=== PATIENT | female | born 1955 | race Caucasian/White ===

== ENCOUNTER → 2019-06-18 | Outpatient (CLI) | payer OTHER | END | disposition home or self-care (01) | LOC: XY 10:40 | PROVIDERS: ATTEND Internal Medicine Nephrology | DX: I77.89 Other specified disorders of arteries and arterioles (principal); R22.41 Localized swelling, mass and lump, right lower limb | CPT/HCPCS: 93926 ==

== ENCOUNTER → 2019-10-23 | Outpatient (CLI) | payer OTHER ==
[2019-10-23 07:53] LABS: Basophils # (auto) 0.1 10 ^3/uL (0-0.2); Basophils % (auto) 1.2 % (0.0-2.0); Eosinophils # (auto) 0.2 10 ^3/uL (0-0.8); Eosinophils % (auto) 3.1 % (0.0-7.0); Hematocrit 41.9 % (36.0-46.0); Hemoglobin 14.2 g/dL (12.2-16.2); Lymphocytes # (auto) 2.2 10 ^3/uL (0.4-5.4); Lymphocytes % (auto) 37.9 % (10.0-50.0); Mean Corpuscular Hemoglobin 29.8 pg (28.0-32.0); Mean Corpuscular Volume 87.7 fL (80.0-100.0); Monocytes # (auto) 0.4 10 ^3/uL (0-1.3); Monocytes % (auto) 6.3 % (0.0-12.0); Neutrophils % (auto) 51.5 % (37.0-80.0); Platelet Count (auto) 291 10^3/uL (140-450); Red Blood Cells 4.77 10^6/uL (4.0-5.20); Red Cell Distribution Width 13.8 % (11.8-14.3); White Blood Cell 5.8 10^3/uL (4.4-10.8)
[2019-10-23 08:17] LABS: Alanine Aminotransferase 42 U/L (13-56); Albumin 3.8 g/dL (3.4-5.0); Anion Gap 8 (5-15); Blood Urea Nitrogen 16 mg/dL (7-18); Carbon Dioxide 29 mmol/L (21-32); Chloride 100 mmol/L (98-107); Glucose 143 mg/dL (74-106); Potassium 4.2 mmol/L (3.5-5.1); Sodium 137 mmol/L (136-145)
[2019-10-23 08:29] LABS: Alkaline Phosphatase 100 U/L (45-117); Aspartate Aminotransferase 21 U/L (15-37); BUN/Creatinine Ratio 22.5; Bilirubin, Total 0.4 mg/dL (0.2-1.0); Cholesterol 301 mg/dL (< 200); GFR African American 106 mL/min; GFR Non-African American 88 mL/min; HDL Cholesterol 30 mg/dL (40-59); Total Protein 7.8 g/dL (6.4-8.2); Triglycerides 1242 mg/dL (< 150)
== END | disposition home or self-care (01) ==
LOC: LAB 07:27
PROVIDERS: ATTEND Internal Medicine Nephrology
DX: F32.9 Major depressive disorder, single episode, unspecified (principal); Z90.49 Acquired absence of other specified parts of digestive tract
CPT/HCPCS: 36415; 80053; 80061; 84439; 84443; 85025

== ENCOUNTER → 2020-01-13 | Outpatient (CLI) | payer OTHER | END | disposition home or self-care (01) | LOC: XY 16:34 | PROVIDERS: ATTEND Internal Medicine Nephrology | DX: I70.201 Unspecified atherosclerosis of native arteries of extremities, right leg (principal) | CPT/HCPCS: 93925 ==

== ENCOUNTER → 2020-09-14 | Outpatient (CLI) | payer OTHER ==
[2020-09-14 08:18] LABS: Urine Bacteria MANY /hpf (None Seen); Urine Blood Negative /uL (Negative); Urine Specific Gravity 1.013 (1.001-1.035); Urine WBC 7 /hpf (0 - 5)
[2020-09-14 08:56] LABS: Protein, Urine 7.6 mg/dL (0.0-11.9)
== END | disposition home or self-care (01) ==
LOC: LAB 07:22
PROVIDERS: ATTEND Internal Medicine Nephrology
DX: R73.9 Hyperglycemia, unspecified (principal)
CPT/HCPCS: 36415; 81001; 82570; 83036; 83970; 84156; 85652; 86038

== ENCOUNTER → 2021-04-24 | Outpatient (CLI) | payer OTHER ==
[2021-04-24 08:24] LABS: Basophils # (auto) 0.1 10 ^3/uL (0-0.2); Basophils % (auto) 0.8 % (0.0-2.0); Eosinophils # (auto) 0.3 10 ^3/uL (0-0.8); Eosinophils % (auto) 3.4 % (0.0-7.0); Hemoglobin 12.8 g/dL (12.2-16.2); Lymphocytes # (auto) 2.9 10 ^3/uL (0.4-5.4); Lymphocytes % (auto) 36.4 % (10.0-50.0); Mean Corpuscular Hemoglobin 28.1 pg (28.0-32.0); Mean Corpuscular Hgb Conc. 32.7 g/dL (32.0-36.0); Mean Corpuscular Volume 86.1 fL (80.0-100.0); Monocytes # (auto) 0.5 10 ^3/uL (0-1.3); Monocytes % (auto) 6.3 % (0.0-12.0); Neutrophils # (auto) 4.2 10 ^3/uL (1.6-8.6); Neutrophils % (auto) 53.1 % (37.0-80.0); Nucleated Red Blood Cells % 0.1 %; Red Blood Cells 4.53 10^6/uL (4.0-5.20); Red Cell Distribution Width 13.9 % (11.8-14.3)
[2021-04-24 08:35] LABS: Urine Bacteria MOD /hpf (None Seen); Urine Blood Negative /uL (Negative); Urine Mucus FEW (None Seen); Urine Specific Gravity 1.014 (1.001-1.035); Urine WBC 130 /hpf (0 - 5)
[2021-04-24 09:00] LABS: Alanine Aminotransferase 57 U/L (13-56); Albumin 3.4 g/dL (3.4-5.0); Anion Gap 9 (5-15); Blood Urea Nitrogen 14 mg/dL (7-18); Calcium 8.9 mg/dL (8.5-10.1); Carbon Dioxide 27 mmol/L (21-32); Chloride 102 mmol/L (98-107); Glucose 149 mg/dL (74-106); Potassium 4.2 mmol/L (3.5-5.1); Sodium 138 mmol/L (136-145)
[2021-04-24 09:04] LABS: Alkaline Phosphatase 156 U/L (45-117); Aspartate Aminotransferase 39 U/L (15-37); BUN/Creatinine Ratio 21.9; Bilirubin, Total 0.3 mg/dL (0.2-1.0); Cholesterol 254 mg/dL (< 200); GFR African American 119 mL/min; GFR Non-African American 98 mL/min; HDL Cholesterol 24 mg/dL (40-59); Total Protein 6.8 g/dL (6.4-8.2); Triglycerides 968 mg/dL (< 150)
== END | disposition home or self-care (01) ==
LOC: LAB 07:55
PROVIDERS: ATTEND Internal Medicine Nephrology
DX: E11.9 Type 2 diabetes mellitus without complications (principal); E03.8 Other specified hypothyroidism; E78.1 Pure hyperglyceridemia
CPT/HCPCS: 36415; 80053; 80061; 81001; 82043; 83036; 84439; 84443; 85025

== ENCOUNTER → 2021-07-31 | Outpatient (CLI) | payer OTHER ==
[~2021-07-31] MED LIST: AMIT50TA5 PO; CYAN10006 PO; GEMF-19 PO; GLIP10TA9 PO; PAR20T PO
[2021-07-31 08:17] VITALS: BP 143/92
[2021-07-31 08:37] VITALS: BP 159/87
[2021-07-31 11:44] LABS: Basophils # (auto) 0.2 10 ^3/uL (0-0.2); Basophils % (auto) 2.5 % (0.0-2.0); Eosinophils # (auto) 0.3 10 ^3/uL (0-0.8); Eosinophils % (auto) 2.8 % (0.0-7.0); Hematocrit 37.9 % (36.0-46.0); Hemoglobin 12.6 g/dL (12.2-16.2); Lymphocytes % (auto) 32.6 % (10.0-50.0); Mean Corpuscular Hemoglobin 28.5 pg (28.0-32.0); Mean Corpuscular Hgb Conc. 33.2 g/dL (32.0-36.0); Mean Corpuscular Volume 85.8 fL (80.0-100.0); Monocytes # (auto) 0.3 10 ^3/uL (0-1.3); Monocytes % (auto) 3.6 % (0.0-12.0); Neutrophils # (auto) 5.4 10 ^3/uL (1.6-8.6); Neutrophils % (auto) 58.5 % (37.0-80.0); Nucleated Red Blood Cells % 0.1 %; Red Blood Cells 4.42 10^6/uL (4.0-5.20); Red Cell Distribution Width 13.9 % (11.8-14.3); White Blood Cell 9.3 10^3/uL (4.4-10.8)
[2021-07-31 11:55] LABS: INR 0.99 (0.9-1.15); Partial Thromboplastin Time 27.9 sec (23.6-33.0)
[2021-07-31 12:19] LABS: Potassium 4.1 mmol/L (3.5-5.1)
[2021-07-31 12:27] LABS: Calcium 9.6 mg/dL (8.5-10.1)
== END | disposition home or self-care (01) ==
LOC: Rad HDHVI 08:06
PROVIDERS: ATTEND Internal Medicine Cardiovascular Disease
DX: Z01.812 Encounter for preprocedural laboratory examination (principal); I70.0 Atherosclerosis of aorta; I73.9 Peripheral vascular disease, unspecified; I10 Essential (primary) hypertension; M47.814 Spondylosis without myelopathy or radiculopathy, thoracic region
CPT/HCPCS: 36415; 71046; 80048; 85025; 85610; 85730; 93005; G0463

== ENCOUNTER 2021-08-03 07:02 | Day surgery (SDC) | payer OTHER ==
[~2021-08-03] VITALS: Ht 160 cm; Wt 58.5 kg
[2021-08-03] VITALS (8 sets, daily range): BP systolic 116–136; BP diastolic 71–76
[2021-08-03] MEDS ORDERED: IOHEXOL 350 MG/ML 100ML IJ ONE (07:52)
[2021-08-03] MEDS ORDERED: HEPARIN IN NS 1000Units/500mL 1,500 ML ONE (07:52)
[2021-08-03] MEDS ORDERED: LIDOCAINE 2%HCL (LOCAL ANESTH.) INJ 10ml MDV ONE (07:52)
[2021-08-03] MEDS ORDERED: ANGIOMAX 250 MG VIAL IV ONE (08:44)
[2021-08-03] MEDS ORDERED: MIDAZOLAM HCL 2MG/2ML 2ml VIAL (1mg/ml) ONE (08:45)
[2021-08-03] MEDS ORDERED: fentaNYL CITRATE 100 MCG/2 ML VL ONE (08:45)
[2021-08-03] MEDS ORDERED: SODIUM CHL 0.9% 0 ML ONE (08:45)
[2021-08-03] MEDS ORDERED: IODIXANOL 320MG/ML 100ML BTL IV ONE (09:13)
[2021-08-25] MEDS ORDERED: AMIT-256 PO (13:17)
== END 2021-08-03 11:40 | disposition home or self-care (01) ==
LOC: CATH 07:02
PROVIDERS: ATTEND Internal Medicine Cardiovascular Disease
DX: I70.203 Unspecified atherosclerosis of native arteries of extremities, bilateral legs (principal); I10 Essential (primary) hypertension; E11.40 Type 2 diabetes mellitus with diabetic neuropathy, unspecified; E11.51 Type 2 diabetes mellitus with diabetic peripheral angiopathy without gangrene; E11.21 Type 2 diabetes mellitus with diabetic nephropathy; E78.5 Hyperlipidemia, unspecified; Z88.0 Allergy status to penicillin; Z88.5 Allergy status to narcotic agent; Z88.6 Allergy status to analgesic agent; Z79.899 Other long term (current) drug therapy; Z87.891 Personal history of nicotine dependence; Z82.49 Family history of ischemic heart disease and other diseases of the circulatory system; Z20.822 Contact with and (suspected) exposure to COVID-19; Z79.02 Long term (current) use of antithrombotics/antiplatelets
CPT/HCPCS: 36246; 75716; C1760; C1769; C1894; J1644; J2001; J2250; J3010; J7030; Q9967; U0003; 37226; 99152

== ENCOUNTER 2021-08-05 08:30 | Emergency (ER) | payer OTHER ==
[~2021-08-05] VITALS: Ht 160 cm; Wt 58.5 kg
[2021-08-05 10:04] LABS: Calcium 9.3 mg/dL (8.5-10.1)
[2021-08-05 10:07] LABS: BUN/Creatinine Ratio 20.7; Bilirubin, Total 0.3 mg/dL (0.2-1.0)
[2021-08-05 10:14] LABS: Basophils # (auto) 0.1 10 ^3/uL (0-0.2); Basophils % (auto) 1.2 % (0.0-2.0); Eosinophils # (auto) 0.3 10 ^3/uL (0-0.8); Eosinophils % (auto) 4.1 % (0.0-7.0); Hematocrit 38.3 % (36.0-46.0); Hemoglobin 12.9 g/dL (12.2-16.2); Lymphocytes # (auto) 2.7 10 ^3/uL (0.4-5.4); Lymphocytes % (auto) 33.2 % (10.0-50.0); Mean Corpuscular Hemoglobin 28.8 pg (28.0-32.0); Mean Corpuscular Hgb Conc. 33.8 g/dL (32.0-36.0); Mean Corpuscular Volume 85.2 fL (80.0-100.0); Monocytes # (auto) 0.4 10 ^3/uL (0-1.3); Monocytes % (auto) 4.9 % (0.0-12.0); Neutrophils # (auto) 4.7 10 ^3/uL (1.6-8.6); Neutrophils % (auto) 56.6 % (37.0-80.0); Red Blood Cells 4.49 10^6/uL (4.0-5.20); Red Cell Distribution Width 14.1 % (11.8-14.3); White Blood Cell 8.3 10^3/uL (4.4-10.8)
[2021-08-05] MEDS ORDERED: HYDROcodone-ACET 10/325MG TAB PO ONE (13:45)
[2021-08-05 14:15] LABS: Urine Bacteria FEW /hpf (None Seen); Urine Blood Negative /uL (Negative); Urine Specific Gravity 1.015 (1.001-1.035); Urine WBC 3 /hpf (0 - 5)
[2021-08-05] MEDS ORDERED: DOCU-94 PO (16:17)
[2021-08-05] MEDS ORDERED: HYDR-4902 PO (16:17)
[2021-08-05 16:26] VITALS: BP 153/78
== END 2021-08-05 16:45 | disposition home or self-care (01) ==
LOC: ER 08:30
DX: S33.5XXA Sprain of ligaments of lumbar spine, initial encounter (principal); S23.3XXA Sprain of ligaments of thoracic spine, initial encounter; R10.32 Left lower quadrant pain; K59.00 Constipation, unspecified; M51.9 Unspecified thoracic, thoracolumbar and lumbosacral intervertebral disc disorder; N28.1 Cyst of kidney, acquired; E11.9 Type 2 diabetes mellitus without complications; E78.5 Hyperlipidemia, unspecified; Z90.710 Acquired absence of both cervix and uterus; Z79.899 Other long term (current) drug therapy; Z88.0 Allergy status to penicillin; Z88.5 Allergy status to narcotic agent; Z88.8 Allergy status to other drugs, medicaments and biological substances; X58.XXXA Exposure to other specified factors, initial encounter; Y93.89 Activity, other specified; Y92.89 Other specified places as the place of occurrence of the external cause; Y99.8 Other external cause status
CPT/HCPCS: 36415; 72131; 74176; 80053; 81001; 85025; 93005

== ENCOUNTER → 2022-01-11 | Outpatient (CLI) | payer OTHER ==
[~2022-01-11] MED LIST changes: +AMIT-256 PO; -AMIT50TA5 PO; -CYAN10006 PO
[2022-01-11 09:31] LABS: Basophils # (auto) 0.1 10 ^3/uL (0-0.2); Eosinophils # (auto) 0.3 10 ^3/uL (0-0.8); Lymphocytes # (auto) 1.5 10 ^3/uL (0.4-5.4); Monocytes # (auto) 0.4 10 ^3/uL (0-1.3)
[2022-01-11 09:32] LABS: Basophils % (auto) 1.1 % (0.0-2.0); Eosinophils % (auto) 3.9 % (0.0-7.0); Hematocrit 41.4 % (36.0-46.0); Hemoglobin 13.3 g/dL (12.2-16.2); Lymphocytes % (auto) 21.1 % (10.0-50.0); Mean Corpuscular Hemoglobin 26.2 pg (28.0-32.0); Mean Corpuscular Hgb Conc. 32.2 g/dL (32.0-36.0); Mean Corpuscular Volume 81.2 fL (80.0-100.0); Neutrophils # (auto) 4.9 10 ^3/uL (1.6-8.6); Neutrophils % (auto) 68.9 % (37.0-80.0); Red Blood Cells 5.09 10^6/uL (4.0-5.20); Red Cell Distribution Width 14.5 % (11.8-14.3); White Blood Cell 7.1 10^3/uL (4.4-10.8)
[2022-01-11 09:42] LABS: Albumin 4.1 g/dL (3.4-5.0); Calcium 9.5 mg/dL (8.5-10.1); Potassium 4.6 mmol/L (3.5-5.1)
[2022-01-11 09:44] LABS: Urine Bacteria NONE SEEN /hpf (None Seen); Urine Blood Negative /uL (Negative); Urine Specific Gravity 1.014 (1.001-1.035); Urine WBC 59 /hpf (0 - 5)
[2022-01-11 09:46] LABS: BUN/Creatinine Ratio 28.4; Bilirubin, Total 0.5 mg/dL (0.2-1.0); Total Protein 7.9 g/dL (6.4-8.2)
[2022-01-11 09:48] LABS: Protein, Urine 9.7 mg/dL (0.0-11.9)
[2022-01-11 09:50] LABS: % Iron Saturation 18.8 % (15-50)
== END | disposition home or self-care (01) ==
LOC: LAB 08:47
PROVIDERS: ATTEND Internal Medicine Nephrology
DX: I10 Essential (primary) hypertension (principal); E11.9 Type 2 diabetes mellitus without complications
CPT/HCPCS: 36415; 80053; 81001; 82570; 82728; 83540; 83550; 84156; 85025

== ENCOUNTER → 2022-04-10 | Outpatient (CLI) | payer OTHER | END | disposition home or self-care (01) | LOC: XY 09:01 | PROVIDERS: ATTEND Student in an Organized Health Care Education/Training Program | DX: I73.9 Peripheral vascular disease, unspecified (principal) | CPT/HCPCS: 93925 ==

== ENCOUNTER → 2022-08-03 | Outpatient (CLI) | payer OTHER ==
[2022-08-03 08:04] LABS: Basophils # (auto) 0.1 10 ^3/uL (0-0.2); Basophils % (auto) 1.1 % (0.0-2.0); Eosinophils # (auto) 0.3 10 ^3/uL (0-0.8); Eosinophils % (auto) 4.6 % (0.0-7.0); Hematocrit 39.9 % (36.0-46.0); Hemoglobin 13.3 g/dL (12.2-16.2); Lymphocytes # (auto) 2.6 10 ^3/uL (0.4-5.4); Mean Corpuscular Hemoglobin 28.9 pg (28.0-32.0); Mean Corpuscular Hgb Conc. 33.4 g/dL (32.0-36.0); Mean Corpuscular Volume 86.6 fL (80.0-100.0); Monocytes # (auto) 0.4 10 ^3/uL (0-1.3); Monocytes % (auto) 5.6 % (0.0-12.0); Neutrophils # (auto) 3.2 10 ^3/uL (1.6-8.6); Neutrophils % (auto) 48.7 % (37.0-80.0); Nucleated Red Blood Cells % 0.1 %; Red Cell Distribution Width 14.3 % (11.8-14.3); White Blood Cell 6.6 10^3/uL (4.4-10.8)
[2022-08-03 09:14] LABS: Chloride 104 mmol/L (98-107); Potassium 4.6 mmol/L (3.5-5.1); Sodium 137 mmol/L (136-145)
[2022-08-03 09:31] LABS: Alanine Aminotransferase 24 U/L (13-56); Albumin 3.6 g/dL (3.4-5.0); Alkaline Phosphatase 87 U/L (45-117); Anion Gap 6 (5-15); Aspartate Aminotransferase 14 U/L (15-37); BUN/Creatinine Ratio 27.9 (10.0-20.0); Bilirubin, Total 0.3 mg/dL (0.2-1.0); Blood Urea Nitrogen 19 mg/dL (7-18); Calcium 9.6 mg/dL (8.5-10.1); Carbon Dioxide 27 mmol/L (21-32); Cholesterol 247 mg/dL (< 200); GFR African American 111 mL/min; GFR Non-African American 91 mL/min; Glucose 171 mg/dL (74-106); HDL Cholesterol 37 mg/dL (40-59); Triglycerides 435 mg/dL (< 150)
[2022-08-03 09:39] LABS: Micro Albumin 8.42 mg/L (0-30.0)
== END | disposition home or self-care (01) ==
LOC: LAB 07:45
PROVIDERS: ATTEND Student in an Organized Health Care Education/Training Program
DX: Z12.11 Encounter for screening for malignant neoplasm of colon (principal); I73.9 Peripheral vascular disease, unspecified; E11.42 Type 2 diabetes mellitus with diabetic polyneuropathy; I10 Essential (primary) hypertension; E78.1 Pure hyperglyceridemia
CPT/HCPCS: 36415; 80053; 80061; 82043; 82270; 82570; 83036; 85025

== ENCOUNTER → 2022-08-23 | Outpatient (CLI) | payer OTHER | END | disposition home or self-care (01) | LOC: XY 08:42 | PROVIDERS: ATTEND Student in an Organized Health Care Education/Training Program | DX: I70.203 Unspecified atherosclerosis of native arteries of extremities, bilateral legs (principal) | CPT/HCPCS: 93925 ==

== ENCOUNTER → 2022-09-18 | Outpatient (CLI) | payer OTHER | END | disposition home or self-care (01) | LOC: LAB 10:24 | PROVIDERS: ATTEND Internal Medicine | DX: Z01.810 Encounter for preprocedural cardiovascular examination (principal) | CPT/HCPCS: 36415; 82565; 84520 ==

== ENCOUNTER → 2022-09-18 | Outpatient (CLI) | payer OTHER ==
[~2022-09-18] VITALS: Ht 160 cm; Wt 58.5 kg
[~2022-09-18] MED LIST changes: +ADENOSINE 49 MG in GIVE UN-DILUTED 0 ML IV STA; -GEMF-19 PO; +GEMF-66 PO
[2022-09-18 09:31] VITALS: BP 129/71
== END | disposition home or self-care (01) ==
LOC: XYW 07:55
PROVIDERS: ATTEND Internal Medicine
DX: I73.9 Peripheral vascular disease, unspecified (principal); I77.89 Other specified disorders of arteries and arterioles; I10 Essential (primary) hypertension; E11.42 Type 2 diabetes mellitus with diabetic polyneuropathy; E78.5 Hyperlipidemia, unspecified; E78.1 Pure hyperglyceridemia
CPT/HCPCS: 78452; 93017; A9500; J0153

== ENCOUNTER → 2022-11-07 | Outpatient (CLI) | payer OTHER ==
[~2022-11-07] MED LIST changes: -ADENOSINE 49 MG in GIVE UN-DILUTED 0 ML IV STA
[2022-11-07 07:35] LABS: BUN/Creatinine Ratio 16.7 (10.0-20.0); Calcium 9.1 mg/dL (8.5-10.1)
[2022-11-07 08:29] LABS: Micro Albumin 6.41 mg/L (0-30.0)
== END | disposition home or self-care (01) ==
LOC: LAB 06:05
PROVIDERS: ATTEND Student in an Organized Health Care Education/Training Program
DX: I10 Essential (primary) hypertension (principal); E11.42 Type 2 diabetes mellitus with diabetic polyneuropathy; E78.2 Mixed hyperlipidemia
CPT/HCPCS: 36415; 80048; 82043; 82570; 83036

== ENCOUNTER → 2023-01-31 | Outpatient (CLI) | payer OTHER | END | disposition home or self-care (01) | LOC: XYW 09:43 | PROVIDERS: ATTEND Student in an Organized Health Care Education/Training Program | DX: I51.89 Other ill-defined heart diseases (principal); I25.10 Atherosclerotic heart disease of native coronary artery without angina pectoris | CPT/HCPCS: 93306 ==

== ENCOUNTER 2023-06-20 08:13 | Day surgery (SDC) | payer OTHER ==
[2023-06-19 12:58] LABS: Basophils # (auto) 0.1 10 ^3/uL (0-0.2); Eosinophils # (auto) 0.3 10 ^3/uL (0-0.8); Red Cell Distribution Width 14.5 % (11.8-14.3); White Blood Cell 11.1 10^3/uL (4.4-10.8)
[2023-06-19 13:00] LABS: Basophils % (auto) 1.2 % (0.0-2.0); Eosinophils % (auto) 2.8 % (0.0-7.0); Hematocrit 41.2 % (36.0-46.0); Hemoglobin 13.6 g/dL (12.2-16.2); Lymphocytes # (auto) 4.5 10 ^3/uL (0.4-5.4); Lymphocytes % (auto) 40.4 % (10.0-50.0); Mean Corpuscular Hemoglobin 27.8 pg (28.0-32.0); Monocytes # (auto) 0.7 10 ^3/uL (0-1.3); Monocytes % (auto) 6.1 % (0.0-12.0); Neutrophils # (auto) 5.5 10 ^3/uL (1.6-8.6); Neutrophils % (auto) 49.5 % (37.0-80.0); Nucleated Red Blood Cells % 0.1 %
[2023-06-19 13:22] LABS: Partial Thromboplastin Time 32.8 SEC (24.5-34.5); Prothrombin Time 10.5 sec (9.3-11.8)
[2023-06-19 13:26] LABS: Urine Bacteria FEW /hpf (None Seen); Urine Blood Negative /uL (Negative); Urine Clarity Clear (Clear); Urine Color Yellow (Yellow); Urine Mucus FEW (None Seen); Urine Protein, UAD Negative (Negative); Urine Specific Gravity 1.021 (1.001-1.035); Urine Urobilinogen Normal (Negative); Urine WBC 25 /hpf (0 - 5); Urine pH 5.5 (5.0-8.0)
[2023-06-19 13:44] LABS: Alanine Aminotransferase 14 U/L (7-40); Alkaline Phosphatase 89 U/L (46-116); Anion Gap 9 (5-15); Aspartate Aminotransferase 16 U/L (13-40); BUN/Creatinine Ratio 26.8 (10.0-20.0); Bilirubin, Total 0.5 mg/dL (0.2-1.0); Blood Urea Nitrogen 22 mg/dL (9-23); Calcium 10.7 mg/dL (8.5-10.1); Carbon Dioxide 27 mmol/L (20-30); Chloride 103 mmol/L (98-107); Glucose 140 mg/dL (74-106); Potassium 4.8 mmol/L (3.5-5.1); Sodium 139 mmol/L (136-145); Total Protein 7.5 g/dL (5.7-8.2)
[~2023-06-20] VITALS: Ht 162.6 cm; Wt 57.6 kg
[~2023-06-20 08:13] MED LIST changes: -AMIT-256 PO; +ASPI1TAB20 PO; +LOSA50TA46 PO
[2023-06-20] MEDS ORDERED: DexAMETHasone SOD PHOS 4 MG/1ML SDV INJ ONE (10:43)
[2023-06-20] MEDS ORDERED: BUPIVACAINE 0.5% P/F INJ 10 ML VIAL ONE (10:43)
[2023-06-20] MEDS ORDERED: EPINEPHrine HCL 1 MG/1 ML AMP ONE (10:45)
[2023-06-20] MEDS ORDERED: fentaNYL CITRATE 100 MCG/2 ML VL ONE (10:57)
[2023-06-20] MEDS ORDERED: MIDAZOLAM HCL 2MG/2ML 2ml VIAL (1mg/ml) ONE (10:57)
[2023-06-20] MEDS ORDERED: PROPOFOL 10 MG/ML 20 ML IV ONE (10:57)
[2023-06-20] MEDS ORDERED: LIDOCAINE 1% INJ PF 5ML AMP ONE (11:00)
[2023-06-20] MEDS ORDERED: ROPIVACAINE 0.5% (5MG/ML) 20ML AMPULE IJ ONE (11:02)
[2023-06-20] MEDS ORDERED: DexAMETHasone SOD PHOS 10MG/1ML VIAL INJ ONE (11:30)
[2023-06-20] MEDS ORDERED: ONDANSETRON HCL 4 MG/2 ML VIAL ONE (11:30)
[2023-06-20] MEDS ORDERED: BUPIVACAINE HCL 50 ML ONE (11:50)
[2023-06-20 12:07] VITALS: O2SAT 94
[2023-06-20 12:08] VITALS: TEMP 97.6
[2023-06-20] MEDS ORDERED: MEPERIDINE HCL (25 MG/ML) 1ML VIAL IV PRN (12:15)
[2023-06-20] MEDS ORDERED: ONDANSETRON HCL 4 MG/2 ML VIAL IV PRN (12:15)
[2023-06-20] MEDS ORDERED: HYDROmorphone HCL 2 MG/ML VL/or syr IV PRN (12:15)
[2023-06-20] MEDS: CLINDAMYCIN 300MG IV 50 ML IV ONE (13:00)
[2023-06-20 13:50] VITALS: BP 115/50; PULSE 86; RESP 12; O2SAT 96
== END 2023-06-20 14:00 | disposition home or self-care (01) ==
LOC: SUR 08:13
PROVIDERS: ATTEND Orthopaedic Surgery Sports Medicine
DX: S83.231A Complex tear of medial meniscus, current injury, right knee, initial encounter (principal); M22.41 Chondromalacia patellae, right knee; S83.281A Other tear of lateral meniscus, current injury, right knee, initial encounter; X58.XXXA Exposure to other specified factors, initial encounter; Y93.89 Activity, other specified; Y92.89 Other specified places as the place of occurrence of the external cause; Y99.8 Other external cause status
CPT/HCPCS: 29881; 36415; 80053; 81001; 85025; 85610; 85730; J0171; J1100; J2250; J2405; J2704; J2795; J3010; J3490

== ENCOUNTER → 2023-09-10 | Outpatient (CLI) | payer OTHER ==
[~2023-09-10] MED LIST changes: +LOSA-534 PO; -LOSA50TA46 PO
[2023-09-10 08:48] LABS: Basophils # (auto) 0.1 10 ^3/uL (0-0.2); Eosinophils # (auto) 0.6 10 ^3/uL (0-0.8); Eosinophils % (auto) 9.4 % (0.0-7.0); Hematocrit 37.5 % (36.0-46.0); Hemoglobin 11.9 g/dL (12.2-16.2); Lymphocytes # (auto) 2.6 10 ^3/uL (0.4-5.4); Lymphocytes % (auto) 39.5 % (10.0-50.0); Mean Corpuscular Hemoglobin 27.5 pg (28.0-32.0); Mean Corpuscular Hgb Conc. 31.7 g/dL (32.0-36.0); Mean Corpuscular Volume 86.8 fL (80.0-100.0); Monocytes # (auto) 0.5 10 ^3/uL (0-1.3); Monocytes % (auto) 6.9 % (0.0-12.0); Neutrophils # (auto) 2.8 10 ^3/uL (1.6-8.6); Neutrophils % (auto) 42.2 % (37.0-80.0); Nucleated Red Blood Cells % 0.1 %; Red Blood Cells 4.33 10^6/uL (4.0-5.20); Red Cell Distribution Width 14.5 % (11.8-14.3); White Blood Cell 6.5 10^3/uL (4.4-10.8)
[2023-09-10 09:20] LABS: Creatinine, Urine 56.91 mg/dL (30.0-125.0)
[2023-09-10 09:22] LABS: Alanine Aminotransferase 12 U/L (7-40); Albumin 4.7 g/dL (3.2-4.8); Alkaline Phosphatase 102 U/L (46-116); Anion Gap 6 (5-15); Aspartate Aminotransferase 11 U/L (13-40); BUN/Creatinine Ratio 25.3 (10.0-20.0); Blood Urea Nitrogen 22 mg/dL (9-23); Calcium 10.3 mg/dL (8.5-10.1); Carbon Dioxide 30 mmol/L (20-30); Chloride 106 mmol/L (98-107); Glucose 139 mg/dL (74-106); Potassium 4.5 mmol/L (3.5-5.1); Sodium 142 mmol/L (136-145); Triglycerides 405 mg/dL (< 150)
[2023-09-10 09:23] LABS: Bilirubin, Total 0.2 mg/dL (0.2-1.0); Cholesterol 237 mg/dL (< 200); HDL Cholesterol 33 mg/dL (40-59); Total Protein 7.5 g/dL (5.7-8.2)
== END | disposition home or self-care (01) ==
LOC: LAB 08:28
PROVIDERS: ATTEND Student in an Organized Health Care Education/Training Program
DX: I73.9 Peripheral vascular disease, unspecified (principal); I25.10 Atherosclerotic heart disease of native coronary artery without angina pectoris; I10 Essential (primary) hypertension; E11.65 Type 2 diabetes mellitus with hyperglycemia; E11.51 Type 2 diabetes mellitus with diabetic peripheral angiopathy without gangrene
CPT/HCPCS: 36415; 80053; 80061; 82043; 82570; 83036; 83540; 85025

== ENCOUNTER 2023-11-19 06:50 | Inpatient (IN) | payer OTHER ==
[2023-11-15 12:17] LABS: Basophils # (auto) 0.1 10 ^3/uL (0-0.2); Basophils % (auto) 1.5 % (0.0-2.0); Eosinophils # (auto) 0.3 10 ^3/uL (0-0.8); Hematocrit 36.7 % (36.0-46.0); Hemoglobin 12.4 g/dL (12.2-16.2); Lymphocytes # (auto) 3.7 10 ^3/uL (0.4-5.4); Lymphocytes % (auto) 42.6 % (10.0-50.0); Mean Corpuscular Hemoglobin 29.2 pg (28.0-32.0); Mean Corpuscular Hgb Conc. 33.9 g/dL (32.0-36.0); Mean Corpuscular Volume 86.2 fL (80.0-100.0); Monocytes # (auto) 0.6 10 ^3/uL (0-1.3); Monocytes % (auto) 7.1 % (0.0-12.0); Neutrophils # (auto) 3.9 10 ^3/uL (1.6-8.6); Neutrophils % (auto) 44.8 % (37.0-80.0); Nucleated Red Blood Cells % 0.2 %; Red Blood Cells 4.26 10^6/uL (4.0-5.20); Red Cell Distribution Width 14.4 % (11.8-14.3); White Blood Cell 8.6 10^3/uL (4.4-10.8)
[2023-11-15 12:29] LABS: INR 1.04 (0.9-1.15); Partial Thromboplastin Time 29.1 SEC (24.5-34.5)
[2023-11-15 12:49] LABS: Alanine Aminotransferase 16 U/L (7-40); Albumin 4.8 g/dL (3.2-4.8); Alkaline Phosphatase 81 U/L (46-116); Anion Gap 6 (5-15); Aspartate Aminotransferase 15 U/L (13-40); BUN/Creatinine Ratio 18.4 (10.0-20.0); Blood Urea Nitrogen 16 mg/dL (9-23); Calcium 10.2 mg/dL (8.7-10.4); Carbon Dioxide 28 mmol/L (20-30); Chloride 105 mmol/L (98-107); Glucose 92 mg/dL (74-106); Potassium 4.4 mmol/L (3.5-5.1); Sodium 139 mmol/L (136-145)
[2023-11-15 12:50] LABS: Bilirubin, Total 0.4 mg/dL (0.2-1.0); Total Protein 7.8 g/dL (5.7-8.2)
[2023-11-19] VITALS (14 sets, daily range): BP systolic 119–138; BP diastolic 54–67; PULSE 64–72; RESP 12–17; TEMP 97.7–98.9; O2SAT 92–98
[~2023-11-19] VITALS: Ht 160 cm; Wt 59.1 kg
[~2023-11-19 06:50] MED LIST changes: +AMIT25TA20 PO; +ATOR40TA52 PO; +CYAN1TAB11 PO; +INSLANTI SC
[2023-11-19] MEDS: HEPARIN IN NS 1000Units/500mL 1,500 ML ONE (07:36)
[2023-11-19] MEDS: IODIXANOL 320MG/ML 100ML BTL IV ONE ×5 (07:36→08:41)
[2023-11-19] MEDS: LIDOCAINE 2%HCL (LOCAL ANESTH.) INJ 20ML MDV ONE (07:54)
[2023-11-19] MEDS: ANGIOMAX 250 MG VIAL IV ONE (07:55)
[2023-11-19] MEDS: SODIUM CHL 0.9% 50 ML ONE (07:56)
[2023-11-19] MEDS: fentaNYL CITRATE 100 MCG/2 ML VL ONE (07:56)
[2023-11-19] MEDS: MIDAZOLAM HCL 2MG/2ML 2ml VIAL (1mg/ml) ONE (07:56)
[2023-11-19] MEDS: CLOPIDOGREL BISULFATE 75 MG TAB ONE ×2 (09:17)
[2023-11-19] MEDS: ASPirin 81 mg TAB ONE (09:17)
[2023-11-19] MEDS: LOSARTAN POTASSIUM 50 MG TAB PO SCH (10:00)
[2023-11-19] MEDS: CLOPIDOGREL BISULFATE 75 MG TAB PO SCH (10:00)
[2023-11-19] MEDS: ASPirin 81 mg TAB PO SCH (10:00)
[2023-11-19] MEDS: SODIUM CHLORIDE 0.9% 1,000 ML IV SCH (22:00)
[2023-11-19] MEDS: ACETAMINOPHEN 325 MG TAB PO PRN (22:17)
[2023-11-19] MEDS: ATORVASTATIN 20 MG TAB PO SCH (22:17)
[2023-11-20 01:00] VITALS: BP 110/45; PULSE 65; RESP 17; TEMP 98.2; O2SAT 98
[2023-11-20 05:00] VITALS: BP 112/42; PULSE 67; RESP 17; TEMP 98; O2SAT 99
[2023-11-20 06:03] LABS: Anion Gap 6 (5-15); Calcium 9.2 mg/dL (8.7-10.4); Carbon Dioxide 28 mmol/L (20-30); Chloride 105 mmol/L (98-107); Potassium 4.6 mmol/L (3.5-5.1); Sodium 139 mmol/L (136-145)
[2023-11-20 06:09] LABS: BUN/Creatinine Ratio 21.9 (10.0-20.0); Blood Urea Nitrogen 21 mg/dL (9-23); Glucose 127 mg/dL (74-106)
[2023-11-20 08:00] VITALS: PULSE 72
[2023-11-20 08:36] VITALS: BP 116/65; PULSE 73; RESP 18; TEMP 98.4; O2SAT 95
[2023-11-20 08:54] LABS: Basophils # (auto) 0.1 10 ^3/uL (0-0.2); Basophils % (auto) 1.1 % (0.0-2.0); Eosinophils # (auto) 0.3 10 ^3/uL (0-0.8); Hematocrit 33.3 % (36.0-46.0); Hemoglobin 11.1 g/dL (12.2-16.2); Lymphocytes # (auto) 2.7 10 ^3/uL (0.4-5.4); Lymphocytes % (auto) 32.6 % (10.0-50.0); Mean Corpuscular Hgb Conc. 33.4 g/dL (32.0-36.0); Mean Corpuscular Volume 86.8 fL (80.0-100.0); Monocytes # (auto) 0.6 10 ^3/uL (0-1.3); Monocytes % (auto) 7.3 % (0.0-12.0); Neutrophils # (auto) 4.5 10 ^3/uL (1.6-8.6); Nucleated Red Blood Cells % 0.1 %; Red Blood Cells 3.83 10^6/uL (4.0-5.20); Red Cell Distribution Width 14.6 % (11.8-14.3); White Blood Cell 8.2 10^3/uL (4.4-10.8)
[2023-11-20 09:03] LABS: Alanine Aminotransferase 13 U/L (7-40); Albumin 4.1 g/dL (3.2-4.8); Alkaline Phosphatase 76 U/L (46-116); Aspartate Aminotransferase 8 U/L (13-40); Bilirubin, Total 0.3 mg/dL (0.2-1.0); Total Protein 6.5 g/dL (5.7-8.2)
[2023-11-20 09:09] LABS: Bilirubin, Direct < 0.1 mg/dL (<0.3)
[2023-11-20] MEDS ORDERED: RIVAROXABAN 2.5 MG TAB PO SCH (10:00)
[2023-11-20 12:51] VITALS: BP 133/58; PULSE 77; RESP 17; TEMP 98.4; O2SAT 99
[2023-11-20 13:01] VITALS: BP 133/58; PULSE 77; RESP 17; TEMP 98.4; O2SAT 99
[2023-11-20] MEDS: ERGOCALCIFEROL 50,000 UNIT(1.25MG) CAP PO SCH (13:34)
[2023-11-20] MEDS: PANTOPRAZOLE 40 MG TAB PO ONE (13:34)
[2023-11-20] MEDS ORDERED: PANTOPRAZOLE 40 MG TAB PO SCH (17:00)
[2023-11-20] MEDS ORDERED: CLOP75TA28 PO (19:15)
[2023-11-21] MEDS ORDERED: ASPirin 81 mg TAB PO SCH (10:00)
== END 2023-11-20 14:11 | disposition home or self-care (01) | DRG 254 ==
LOC: CATH 06:50 → TELE 09:35 → TELE-WESTW 15:30 → WEST WING 11-20 11:11
PROVIDERS: ADMIT Internal Medicine; ATTEND Internal Medicine
PROC: 047K34Z Dilation of Right Femoral Artery with Drug-eluting Intraluminal Device, Percutaneous Approach (ICD-10-PCS; principal; 2023-11-19)
PROC: B41GYZZ Fluoroscopy of Left Lower Extremity Arteries using Other Contrast (ICD-10-PCS; 2023-11-19)
PROC: B41FYZZ Fluoroscopy of Right Lower Extremity Arteries using Other Contrast (ICD-10-PCS; 2023-11-19)
DX: E11.51 Type 2 diabetes mellitus with diabetic peripheral angiopathy without gangrene (principal); I70.211 Atherosclerosis of native arteries of extremities with intermittent claudication, right leg; E78.5 Hyperlipidemia, unspecified; I10 Essential (primary) hypertension; G89.29 Other chronic pain; F32.A Depression, unspecified; Z79.4 Long term (current) use of insulin; Z87.891 Personal history of nicotine dependence; Z90.710 Acquired absence of both cervix and uterus
CPT/HCPCS: 36415; 80048; 80053; 80076; 82306; 82607; 83036; 83605; 84443; 85025; 85610; 85730; 99152; C1769; G0378; J2250; Q9967

== ENCOUNTER → 2024-06-18 | Outpatient (CLI) | payer OTHER ==
[~2024-06-18] MED LIST changes: +CLOP75TA28 PO
[2024-06-18 08:38] LABS: Basophils # (auto) 0.1 10 ^3/uL (0-0.2); Basophils % (auto) 1.2 % (0.0-2.0); Eosinophils # (auto) 0.3 10 ^3/uL (0-0.8); Eosinophils % (auto) 4.5 % (0.0-7.0); Hematocrit 38.7 % (36.0-46.0); Hemoglobin 12.6 g/dL (12.2-16.2); Lymphocytes % (auto) 31.2 % (10.0-50.0); Mean Corpuscular Hemoglobin 26.8 pg (28.0-32.0); Mean Corpuscular Hgb Conc. 32.5 g/dL (32.0-36.0); Mean Corpuscular Volume 82.3 fL (80.0-100.0); Monocytes # (auto) 0.3 10 ^3/uL (0-1.3); Monocytes % (auto) 4.7 % (0.0-12.0); Neutrophils # (auto) 3.7 10 ^3/uL (1.6-8.6); Neutrophils % (auto) 58.4 % (37.0-80.0); Platelet Count (auto) 294 10^3/uL (140-450); Red Cell Distribution Width 16.9 % (11.8-14.3); White Blood Cell 6.3 10^3/uL (4.4-10.8)
[2024-06-18 09:58] LABS: Urine Bacteria FEW /hpf (None Seen); Urine Blood Negative /uL (Negative); Urine Protein, UAD 1+ (Negative); Urine Specific Gravity 1.021 (1.001-1.035); Urine Squamous Epithelial Cell FEW /hpf (<5); Urine Urobilinogen Normal (Negative); Urine WBC 47 /HPF (0-5)
[2024-06-18 10:00] LABS: Urine Clarity Cloudy (Clear); Urine Color Light-Yellow (Yellow)
[2024-06-18 10:12] LABS: Albumin 4.5 g/dL (3.2-4.8); Anion Gap 11 (5-15); Aspartate Aminotransferase 27 U/L (13-40); BUN/Creatinine Ratio 18.8 (10.0-20.0); Bilirubin, Total 0.4 mg/dL (0.2-1.0); Blood Urea Nitrogen 15 mg/dL (9-23); Carbon Dioxide 28 mmol/L (20-31); Potassium 3.8 mmol/L (3.5-5.1); Sodium 136 mmol/L (136-145); Total Protein 7.3 g/dL (5.7-8.2)
[2024-06-18 10:21] LABS: Alanine Aminotransferase 42 U/L (7-40); Alkaline Phosphatase 199 U/L (46-116); Chloride 97 mmol/L (98-107); Cholesterol 429 mg/dL (< 200); Glucose 230 mg/dL (74-106); HDL Cholesterol 37 mg/dL (40-59); Triglycerides 1694 mg/dL (< 150)
[2024-06-18 10:27] LABS: Creatinine, Urine 100.07 mg/dL (30.0-125.0)
== END | disposition home or self-care (01) ==
LOC: LAB 08:18
PROVIDERS: ATTEND Nurse Practitioner
DX: I10 Essential (primary) hypertension (principal); E11.9 Type 2 diabetes mellitus without complications; E78.5 Hyperlipidemia, unspecified
CPT/HCPCS: 36415; 80053; 80061; 81001; 82043; 82570; 83036; 84443; 85025

== ENCOUNTER 2024-09-29 06:49 | Outpatient (CLI) | payer OTHER ==
[2024-09-29 07:15] LABS: Basophils # (auto) 0.1 10 ^3/uL (0-0.2); Basophils % (auto) 1.1 % (0.0-2.0); Eosinophils % (auto) 11.2 % (0.0-7.0); Hematocrit 42.1 % (36.0-46.0); Hemoglobin 13.8 g/dL (12.2-16.2); Lymphocytes % (auto) 34.4 % (10.0-50.0); Mean Corpuscular Hgb Conc. 32.8 g/dL (32.0-36.0); Mean Corpuscular Volume 85.5 fL (80.0-100.0); Monocytes # (auto) 0.6 10 ^3/uL (0-1.3); Monocytes % (auto) 6.3 % (0.0-12.0); Neutrophils # (auto) 4.1 10 ^3/uL (1.6-8.6); Platelet Count (auto) 346 10^3/uL (140-450); Red Blood Cells 4.92 10^6/uL (4.0-5.20); Red Cell Distribution Width 15.1 % (11.8-14.3); White Blood Cell 8.7 10^3/uL (4.4-10.8)
[2024-09-29 07:27] LABS: Protein, Urine 17.6 mg/dL (1-14)
[2024-09-29 07:28] LABS: Alanine Aminotransferase 14 U/L (7-40); Alkaline Phosphatase 76 U/L (46-116); Anion Gap 10 (5-15); BUN/Creatinine Ratio 24.4 (10.0-20.0); Bilirubin, Total 0.4 mg/dL (0.2-1.0); Blood Urea Nitrogen 22 mg/dL (9-23); Calcium 10.1 mg/dL (8.7-10.4); Carbon Dioxide 27 mmol/L (20-31); Chloride 104 mmol/L (98-107); Potassium 4.5 mmol/L (3.5-5.1); Sodium 141 mmol/L (136-145); Total Protein 7.5 g/dL (5.7-8.2)
[2024-09-29 07:29] LABS: Albumin 4.8 g/dL (3.2-4.8); Aspartate Aminotransferase 13 U/L (13-40); Glucose 188 mg/dL (74-106)
[2024-09-29 07:30] LABS: Creatinine, Urine 103.26 mg/dL (30.0-125.0); Urine Protein/Creatinine Ratio 0.17
[2024-09-29 08:11] LABS: Cholesterol 338 mg/dL (< 200); HDL Cholesterol 35 mg/dL (40-59); Triglycerides 560 mg/dL (< 150)
== END 2024-09-29 17:00 | disposition home or self-care (01) ==
LOC: LAB 06:49
PROVIDERS: ATTEND Licensed Practical Nurse
DX: I10 Essential (primary) hypertension (principal); E11.51 Type 2 diabetes mellitus with diabetic peripheral angiopathy without gangrene; E11.42 Type 2 diabetes mellitus with diabetic polyneuropathy; E78.5 Hyperlipidemia, unspecified; E55.9 Vitamin D deficiency, unspecified
CPT/HCPCS: 36415; 80053; 80061; 82043; 82306; 82570; 82607; 83036; 84156; 85025

== ENCOUNTER 2024-12-24 06:33 | Outpatient (CLI) | payer OTHER ==
[2024-12-24 07:00] LABS: Hematocrit 38.9 % (36.0-46.0); Hemoglobin 13.2 g/dL (12.2-16.2); Mean Corpuscular Hemoglobin 29.2 pg (28.0-32.0); Mean Corpuscular Volume 86.2 fL (80.0-100.0); Nucleated Red Blood Cells % 0.0 %
[2024-12-24 07:18] LABS: Alanine Aminotransferase 35 U/L (7-40); Alkaline Phosphatase 69 U/L (46-116); Anion Gap 10 (5-15); BUN/Creatinine Ratio 19.2 (10.0-20.0); Blood Urea Nitrogen 20 mg/dL (9-23); Calcium 9.6 mg/dL (8.7-10.4); Carbon Dioxide 28 mmol/L (20-31); Chloride 103 mmol/L (98-107); Potassium 3.9 mmol/L (3.5-5.1); Sodium 141 mmol/L (136-145); Total Protein 7.6 g/dL (5.7-8.2)
[2024-12-24 07:19] LABS: Albumin 4.7 g/dL (3.2-4.8); Bilirubin, Total 0.4 mg/dL (0.2-1.0)
[2024-12-24 07:20] LABS: Glucose 149 mg/dL (74-106)
[2024-12-24 07:31] LABS: Triglycerides 498 mg/dL (< 150)
[2024-12-24 07:33] LABS: Cholesterol 316 mg/dL (< 200); HDL Cholesterol 36 mg/dL (40-59)
== END 2024-12-24 17:00 | disposition home or self-care (01) ==
LOC: LAB 06:33
PROVIDERS: ATTEND Licensed Practical Nurse
DX: I10 Essential (primary) hypertension (principal); E11.21 Type 2 diabetes mellitus with diabetic nephropathy; E78.2 Mixed hyperlipidemia; Z12.11 Encounter for screening for malignant neoplasm of colon
CPT/HCPCS: 36415; 80053; 80061; 82043; 83036; 85025

== ENCOUNTER 2024-12-24 16:37 | Outpatient (CLI) | payer OTHER ==
[2024-12-24 16:54] LABS: Urine Protein, UAD Negative (Negative)
== END 2024-12-24 17:00 | disposition home or self-care (01) ==
LOC: LAB 16:37
PROVIDERS: ATTEND Licensed Practical Nurse
DX: N39.0 Urinary tract infection, site not specified (principal)
CPT/HCPCS: 81001; 87086

== ENCOUNTER 2025-02-03 06:47 | Inpatient (IN) | payer OTHER ==
[2025-02-02 09:54] LABS: Hematocrit 40.2 % (36.0-46.0); Hemoglobin 13.2 g/dL (12.2-16.2); Mean Corpuscular Hemoglobin 28.2 pg (28.0-32.0); Mean Corpuscular Volume 85.7 fL (80.0-100.0); Nucleated Red Blood Cells % 0.0 %
[2025-02-02 10:04] LABS: Urine Protein, UAD Negative (Negative)
[2025-02-02 10:08] LABS: INR 1.03 (0.9-1.15); Partial Thromboplastin Time 26.2 SEC (24.5-34.5); Prothrombin Time 10.9 sec (9.3-11.8)
[2025-02-02 10:11] LABS: Alanine Aminotransferase 19 U/L (7-40); Alkaline Phosphatase 54 U/L (46-116); Anion Gap 10 (5-15); BUN/Creatinine Ratio 23.5 (10.0-20.0); Bilirubin, Total 0.4 mg/dL (0.2-1.0); Calcium 9.6 mg/dL (8.7-10.4); Carbon Dioxide 29 mmol/L (20-31); Chloride 101 mmol/L (98-107); Potassium 4.6 mmol/L (3.5-5.1); Sodium 140 mmol/L (136-145); Total Protein 8.0 g/dL (5.7-8.2)
[2025-02-02 10:19] LABS: Albumin 4.8 g/dL (3.2-4.8); Blood Urea Nitrogen 24 mg/dL (9-23); Glucose 154 mg/dL (74-106)
[~2025-02-03] VITALS: Ht 162.6 cm; Wt 68.2 kg
[~2025-02-03 06:47] MED LIST changes: -ASPI1TAB20 PO; -ATOR40TA52 PO; -CLOP75TA28 PO; -CYAN1TAB11 PO; +FENO5TAB PO; -GEMF-66 PO; -INSLANTI SC; -LOSA-534 PO; +METF-370 PO; -PAR20T PO
[2025-02-03] MEDS ORDERED: KETOROLAC TROMETH 30 MG/ML 1ML VIAL IV ONE (07:15)
[2025-02-03] MEDS ORDERED: MORPHINE SULFATE 4 MG/ML SYR/VIAL IV PRN ×2 (07:15→11:45)
[2025-02-03] MEDS ORDERED: METOCLOPRAMIDE HCL 5MG/ml INJ 2ml VIAL IV PRN (07:15)
[2025-02-03] MEDS ORDERED: HYDROmorphone HCL 2 MG/ML VL/or syr IV PRN (07:15)
[2025-02-03] MEDS ORDERED: ACCU-CHEK COMFORT CURVE STRIP VI ONE (07:15)
[2025-02-03] MEDS ORDERED: MORPHINE SULFATE INJ 2 MG/ml SYRG IV PRN (07:15)
[2025-02-03] MEDS: ceFAZolin 2 GM/D5W50ml 50 ML IV ONE (07:29)
[2025-02-03] MEDS ORDERED: ONDANSETRON HCL 4 MG/2 ML VIAL ONE (07:30)
[2025-02-03] MEDS ORDERED: fentaNYL CITRATE 100 MCG/2 ML VL ONE (07:30)
[2025-02-03] MEDS ORDERED: LIDOCAINE 1% INJ PF 5ML AMP ONE (07:30)
[2025-02-03] MEDS ORDERED: NEOSTIGMINE 1 MG/ML INJ (10mg/10ML VIAL) ONE (07:30)
[2025-02-03] MEDS ORDERED: MIDAZOLAM HCL 2MG/2ML 2ml VIAL (1mg/ml) ONE (07:30)
[2025-02-03] MEDS ORDERED: GLYCOPYRROLATE 0.2 MG/ML 1ML VIAL ONE (07:30)
[2025-02-03] MEDS ORDERED: SODIUM CHLORIDE LOCK 10 ML ONE (07:30)
[2025-02-03] MEDS ORDERED: PROPOFOL 10 MG/ML 20 ML IV ONE (07:30)
[2025-02-03] MEDS ORDERED: HYDROmorphone HCL 2 MG/ML VL/or syr ONE (07:30)
[2025-02-03] MEDS ORDERED: ROCURONIUM 10MG/ML 10ML VIAL IV ONE (07:30)
[2025-02-03] MEDS ORDERED: LIDOCAINE 2% TOPICAL JELLY 5 ML URJT TOP ONE (07:30)
[2025-02-03] MEDS: BUPIVACAINE HCL 50 ML ONE (08:31)
[2025-02-03] MEDS ORDERED: SUGAMMADEX 200mg/2ml Vial (100MG/ML) IV ONE (09:00)
[2025-02-03] MEDS: LIDOCAINE W/ EPINEPHRINE 1% 20ML VIAL ONE (09:04)
[2025-02-03] MEDS: POVIDONE IODINE 10 % TOPICAL OINT 30GM TOP ONE (09:05)
[2025-02-03 09:07] VITALS: PULSE 83; RESP 22; O2SAT 95
[2025-02-03 09:45] VITALS: PULSE 73; RESP 12; O2SAT 100
[2025-02-03] MEDS: ACETAMINOPHEN IV 100 ML IV ONE (10:09)
--- NOTE | 2025-02-03 10:13 | DVHOP ---
DATE OF SURGERY: 02/03/2025 PREOPERATIVE DIAGNOSES: * Cholelithiasis. * Cholecystitis. POSTOPERATIVE DIAGNOSES: * Cholelithiasis. * Cholecystitis. SURGEON: Tate Eric MD ANESTHESIA: General endotracheal, Dr. Kelsey PROCEDURES: * Laparoscopy. * Laparoscopic cholecystectomy. DESCRIPTION OF PROCEDURE: Under general endotracheal anesthesia with the patient's skin prepped and draped, a supraumbilical incision was made and Veress needle inserted into the peritoneal cavity by the hanging drop technique to establish pneumoperitoneum to 15 mmHg pressure by insufflation with carbon dioxide. Following complete distention of the abdomen, hemostat was utilized to separate the fibers of the muscle and to probe the underlying abdominal cavity due to the fact that the patient had previous colon resection and previous abdominoplasty to assure free space without potential injury to the bowel. Subsequently, the 5 mm trocar port was inserted through the opening created and insufflation was continued. A 0-degree viewing laparoscope was inserted through this 5 mm port and revealed evidence of prior surgeries with scarring and adhesions being present. The gallbladder, however, was free of significant adhesions to any bowel loops. There was significant amount of omentum attached to the gallbladder and this was lysed sharply and bluntly and additional 5 and 10 mm ports having been placed through the anterior axillary line and through the subxiphoid skin respectively. The patient's laparoscopy was somewhat hampered by the previous abdominoplasty which limited the distention of the abdomen. The laparoscopy revealed no obvious unexpected pathology. The gallbladder was maintained on tension cephalad. The cystic duct and cystic artery were identified, circumferentially dissected and skeletonized, and traced into the hepatocystic triangle system to minimize the potential for inadvertent injury to the common bile duct. Subsequently, the cystic duct and cystic artery were divided between metallic clips. Manipulation of the gallbladder resulted in partial disintegration of the inferior wall of the fundal portion of the gallbladder due to chronic inflammation and possibly some gangrenous changes in the wall. Small amount of bile was collected and sent for cultures and sensitivities. The right upper quadrant was then irrigated with saline which was aspirated prior to completion of the procedure. Following division of the cystic duct and cystic artery close to the gallbladder, the gallbladder was resected from its liver bed by electrocautery and traction. The fully mobilized gallbladder was placed into the specimen extraction bag which was withdrawn from the peritoneal cavity through the subxiphoid 10 mm port site. Right upper quadrant was again irrigated due to a partial intrahepatic nature of the gallbladder which made the incision even more difficult. A 10 mm Dion-Briceño drain was placed underneath the right lobe of the liver and was externalized through the 5 mm port site on the right flank. The drain was secured with a 2-0 nylon suture and placed under the right lobe of the liver. Following assurance of complete hemostasis and having received a report of an accurate needle and sponge count, the procedure was completed. The instrumentation was withdrawn. Pneumoperitoneum was evacuated. Fascial defect closed using 0 Vicryl. Metallic skin geraldo used for approximation of skin edges. The patient remained stable throughout the procedure and left the operating room following an accurate needle and sponge count. No family members were present in the waiting room and the patient's contact [phone] belonged to Mr. Ly went unanswered on two occasions. MD BUCK Moore/KERVIN/PATRICIO TID: [id number] RECEIPT: [id number]
[2025-02-03] MEDS: HYDROmorphone HCL 2 MG/ML VL/or syr IV PRN (10:20)
[2025-02-03] MEDS: PANTOPRAZOLE 40 MG/10 ML VIAL INJ IV SCH (10:21)
[2025-02-03] MEDS: ACETAMINOPHEN IV 1000 MG/100ML (10MG/ML) IV ONE (10:22)
[2025-02-03] MEDS: HYDROmorphone HCL 2 MG/ML VL/or syr ONE (10:23)
[2025-02-03 10:59] VITALS: BP 105/54; PULSE 73; RESP 18; TEMP 97.8; O2SAT 97
[2025-02-03] MEDS ORDERED: NITROGLYCERIN 0.4 MG SL TAB SL PRN (11:15)
[2025-02-03] MEDS: D5W/SOD CHL 0.45%/KCL 20MEQ 1,000 ML IV SCH ×2 (12:13→13:45)
[2025-02-03 13:00] VITALS: BP 106/62; PULSE 80; RESP 17; TEMP 97.7; O2SAT 93
--- NOTE | 2025-02-03 13:49 | DVHHP2 ---
Review of Systems Allergies: Coded Allergies: Cilostazol (Verified Allergy, Intermediate, 11/20/23) Hives, vaginal bleeding Codeine (Verified Allergy, Unknown, RASH, 11/15/23) Penicillins (Verified Allergy, Unknown, RASH, 11/15/23) Medications Current Medications Medications Dose Ordered Sig/Randy Route Start Time Stop Time Status Last Admin Dose Admin Potassium Chloride/Dextrose/ Sod Cl 1,000 ml @ 120 mls/hr Q8H20M IV 02/03/25 09:30 02/03/25 12:13 120 MLS/HR Levofloxacin/ Dextrose 100 ml @ 100 mls/hr DAILY IV 02/03/25 10:00 Metronidazole 100 ml @ 100 mls/hr Q8HR IV 02/03/25 14:00 Pantoprazole Sodium 40 mg DAILY IV 02/03/25 10:00 02/03/25 10:21 40 MG Ondansetron HCl 4 mg Q4HPRN PRN IV 02/03/25 09:30 Hydromorphone HCl 1 mg Q3HPRN PRN IV 02/03/25 09:30 Nitroglycerin 0.4 mg Q5MINP PRN SL 02/03/25 11:15 Morphine Sulfate 2 mg Q30M PRN IV 02/03/25 11:45 Exam Vital Signs Vital Signs Date Time Temp Pulse Resp B/P (MAP) Pulse Ox O2 Delivery O2 Flow Rate FiO2 02/03/25 10:59 97.8 73 18 105/54 (71) 97 97.8 02/03/25 09:45 2.0 02/03/25 09:45 Nasal Cannula 100 Labs/Xrays Labs Test 02/03/25 10:03 02/02/25 09:30 Range/Units POC Glucose 162 H 70-106 mg/dl White Blood Count 7.7 4.4-10.8 10^3/uL Red Blood Count 4.69 4.0-5.20 10^6/uL Hemoglobin 13.2 12.2-16.2 g/dL Hematocrit 40.2 36.0-46.0 % Mean Corpuscular Volume 85.7 80.0-100.0 fL Mean Corpuscular Hemoglobin 28.2 28.0-32.0 pg Mean Corpuscular Hemoglobin Concent 32.8 32.0-36.0 g/dL Red Cell Distribution Width 14.0 11.8-14.3 % Platelet Count 425 140-450 10^3/uL Mean Platelet Volume 7.8 6.9-10.8 fL Neutrophils (%) (Auto) 55.1 37.0-80.0 % Lymphocytes (%) (Auto) 35.8 10.0-50.0 % Monocytes (%) (Auto) 5.0 0.0-12.0 % Eosinophils (%) (Auto) 2.6 0.0-7.0 % Basophils (%) (Auto) 1.5 0.0-2.0 % Neutrophils # (Auto) 4.2 1.6-8.6 10 ^3/uL Lymphocytes # (Auto) 2.8 0.4-5.4 10 ^3/uL Monocytes # (Auto) 0.4 0-1.3 10 ^3/uL Eosinophils # (Auto) 0.2 0-0.8 10 ^3/uL Basophils # (Auto) 0.1 0-0.2 10 ^3/uL Nucleated Red Blood Cells 0.0 % Prothrombin Time 10.9 9.3-11.8 sec Prothrombin Time INR 1.03 0.9-1.15 Activated Partial Thromboplast Time 26.2 24.5-34.5 SEC Urine Color Light-yellow Yellow Urine Clarity Clear Clear Urine pH 6.0 5.0-9.0 Urine Specific [place] 1.021 1.001-1.035 Urine Protein Negative Negative Urine Ketones Negative Negative Urine Blood Negative Negative /uL Urine Nitrite Negative Negative Urine Bilirubin Negative Negative Urine Urobilinogen Normal Negative mg/dL Urine Leukocyte Esterase 2+ Negative /uL Urine RBC 2 0 - 4 /hpf Urine Microscopic WBC 13 H 0-5 /HPF Urine Squamous Epithelial Cells Few <5 /hpf Urine Bacteria Few H None Seen /hpf Urine Glucose Normal Normal mg/dL Sodium Level 140 136-145 mmol/L Potassium Level 4.6 3.5-5.1 mmol/L Chloride Level 101 98-107 mmol/L Carbon Dioxide Level 29 20-31 mmol/L Anion Gap 10 5-15 Blood Urea Nitrogen 24 H 9-23 mg/dL Creatinine 1.02 0.550-1.02 mg/dL Glomerular Filtration Rate Calc 59 >90 mL/min BUN/Creatinine Ratio 23.5 H 10.0-20.0 Serum Glucose 154 H 74-106 mg/dL Calcium Level 9.6 8.7-10.4 mg/dL Total Bilirubin 0.4 0.2-1.0 mg/dL Aspartate Amino Transferase (AST) 20 13-40 U/L Alanine Aminotransferase (ALT) 19 7-40 U/L Alkaline Phosphatase 54 46-116 U/L Total Protein 8.0 5.7-8.2 g/dL Albumin 4.8 3.2-4.8 g/dL SEPSIS Sepsis Screen Physician Orders Oxygen By Face Mask (02/03/25 07:12) Infant Teacher (02/03/25 07:12) Notify Anesth. For Changes: (02/03/25 07:12) Pulse Ox Assessment (02/03/25 07:12) Bear Hugger For Temp <94.5f (02/03/25 07:12) May Have Head Of Bed Up (02/03/25 07:12) Follow Iv With Surgeon Orders (02/03/25 07:12) Discharge To Room Per Criteria (02/03/25 07:12) Anaerobic Culture (02/03/25 09:13) Gram Stain (02/03/25 09:13) Routine Bacterial Culture (02/03/25 09:13) To Pacu For Recovery (02/03/25 09:28) Oxygen Via Cool Mist Mask (02/03/25 09:28) Abdominal Binder (02/03/25 09:28) Cody To Bulb Suction (02/03/25 09:28) Sequential Compression Device (02/03/25 09:28) Clear Liq Diet (02/03/25 Breakfast) Bilirubin, Total (02/04/25 04:00) Page Hospitalist For Admission (02/03/25 09:28) D5w/Sod Chl 0.45%/Kcl 20meq (02/03/25 09:30) Levofloxacin 500mg (Levaquin 500mg/ 100m (02/03/25 10:00) Metronidazole 500mg/100ml (Flagyl 500mg/ (02/03/25 14:00) Pantoprazole (Protonix) (02/03/25 10:00) Ondansetron Hcl (Zofran) (02/03/25 09:30) Hydromorphone Injection (Dilaudid Inject (02/03/25 09:30) Admit (02/03/25 11:04) Oxygen By Nasal Cannula (02/03/25 11:04) Nitroglycerin Sublingual (Ntrostat Subli (02/03/25 11:15) Stat Ekg For Chest Pain (02/03/25 11:04) Notify Of Changes From Base (02/03/25 11:04) Wellfield Technician For 24 Hours (02/03/25 11:04) Emergency Dysrhythmia Protocol (02/03/25 11:04) Rhythm Strips Once Every Shift (02/03/25 11:04) Morphine Sulfate Injection (02/03/25 11:45) Pharmacy Clarification: (02/03/25 23:59) D5 1/2 Ns Potassium 20meq (02/03/25 13:45) Hydrocodone-Acet 5/325mg Tab ([place] 5/32 (02/03/25 13:45) Complete Blood Count (02/04/25 06:00) Comprehensive Metabolic Panel (02/04/25 06:00) Hemoglobin A1c (02/04/25 06:00) Vital Signs Date Time Temp Pulse Resp B/P (MAP) Pulse Ox O2 Delivery O2 Flow Rate FiO2 02/03/25 10:59 97.8 73 18 105/54 (71) 97 97.8 02/03/25 10:40 73 13 109/55 (73) 97 02/03/25 10:22 73 15 107/55 (72) 95 02/03/25 10:20 75 18 99/49 02/03/25 09:52 74 13 115/59 (77) 96 02/03/25 09:45 73 12 100 2.0 02/03/25 09:45 Nasal Cannula 2.0 100 02/03/25 09:37 99 13 127/60 (82) 99 02/03/25 09:22 84 18 125/58 (80) 98 02/03/25 09:17 82 16 128/66 (86) 98 02/03/25 09:12 82 16 118/63 (81) 97 02/03/25 09:07 83 22 95 7.0 02/03/25 09:07 98.6 83 22 116/61 (79) 95 98.6 02/03/25 09:07 Mask 7.0 95 02/03/25 07:22 96.7 71 16 122/70 (87) 97 96.7 Medications Medications Dose Ordered Sig/Randy Route Start Time Stop Time Status Last Admin Dose Admin Acetaminophen 1,000 mg ONCE ONCE IV 02/03/25 10:15 02/03/25 10:16 DC 02/03/25 10:22 1,000 MG Hydromorphone HCl 0.5 mg Q10M PRN IV 02/03/25 07:15 02/03/25 07:56 DC 02/03/25 10:20 0.5 MG Lidocaine/ Epinephrine 20 ml STK-MED ONCE .ROUTE 02/03/25 08:31 02/03/25 08:27 DC 02/03/25 09:04 5 ML Pantoprazole Sodium 40 mg DAILY IV 02/03/25 10:00 02/03/25 10:21 40 MG Potassium Chloride/Dextrose/ Sod Cl 1,000 ml @ 120 mls/hr Q8H20M IV 02/03/25 09:30 02/03/25 12:13 120 MLS/HR Povidone Iodine 1 applic STK-MED ONCE TOP 02/03/25 09:02 02/03/25 08:58 DC 02/03/25 09:05 1 APPLIC Assessment/Plan Assessment/Plan see dictated note Plan discussed with: Patient My Orders Orders - GATITO LILLY MD Procedure Category Date Status Time Admit ADMIT 02/03/25 Transmitted 11:04 Oxygen By Nasal RT 02/03/25 Transmitted Cannula 11:04 Nitroglycerin [facility] 02/03/25 In Process Sublingual (Ntrostat 11:15 Stat Ekg For Chest [facility] 02/03/25 In Process Pain 11:04 Notify Md Of Changes [facility] 02/03/25 In Process From Base 11:04 Wellfield Technician For [facility] 02/03/25 In Process 24 Hours 11:04 Emergency Dysrhythmia [facility] 02/03/25 In Process Protocol 11:04 Rhythm Strips Once [facility] 02/03/25 In Process Every Shift 11:04 Morphine Sulfate PHA 02/03/25 In Process Injection 11:45 Pharmacy [facility] 02/03/25 In Process Clarification: 23:59 D5 1/2 Ns Potassium PHA 02/03/25 Transmitted 20meq 13:45 Hydrocodone-Acet PHA 02/03/25 Transmitted 5/325mg Tab ([place] 13:45 Complete Blood Count LAB 02/04/25 Verified 06:00 Comprehensive LAB 02/04/25 Verified Metabolic Panel 06:00 Hemoglobin A1c LAB 02/04/25 Verified 06:00 Date of Service: Feb 03, 2025 Billing Provider: GATITO LILLY MD Common Visit Codes: [id number] INP/OBS CARE (HIGH) Secondary Visit Codes: [id number] CARE PLAN 30 MINUTES GATITO LILLY MD Feb 03, 2025 13:49
[2025-02-03] MEDS ORDERED: DEXTROSE (50%) 50ML SYRG IV PRN (14:00)
--- NOTE | 2025-02-03 14:35 | DVHHP ---
ADMIT DATE: 02/03/2025 HISTORY OF PRESENT ILLNESS: The patient is a 70-year-old lady, who is admitted after she underwent cholecystectomy for cholelithiasis and chronic cholecystitis. The patient at this time denies any significant pain. No chest pain, no shortness of breath, no nausea or vomiting. REVIEW OF SYSTEMS: Review of rest of systems otherwise currently negative. PAST MEDICAL HISTORY: Significant for diabetes, hypertension, and hyperlipidemia. MEDICATIONS: She takes amitriptyline, metformin, glipizide. ALLERGIES: CILOSTAZOL, CODEINE, AND PENICILLIN. SOCIAL HISTORY: Denies smoking or alcohol. Lives alone. FAMILY HISTORY: Negative. PHYSICAL EXAMINATION: GENERAL: The patient is awake, alert. VITAL SIGNS: Temperature 97.8, pulse 73 per minute, blood pressure 109/55. SHEENT: Unremarkable. NECK: There is no JVD. No pedal edema. LUNGS: Equal bilaterally. No added sounds. CARDIOVASCULAR: S1 and S2 is regular. No murmurs. ABDOMEN: Soft. Bowel sounds are hypoactive. There is a YAS drain in place. NEUROLOGIC: Nonfocal. MUSCULOSKELETAL: Normal. ASSESSMENT AND PLAN: * Diabetes mellitus for which she will be placed on sliding scale insulin. * Hypertension. * Hyperlipidemia. * Status post laparoscopic cholecystectomy for cholelithiasis and chronic cholecystitis for which she will be placed on IV fluids and pain medications. ADVANCED CARE PLANNING: The patient is a full code-TIME SPENT: 18 minutes. MD HAY Gil/VANDA TID: [id number] RECEIPT: [id number] [facility]
[2025-02-03] MEDS ORDERED: LOSA-534 PO (16:15)
[2025-02-03 17:00] VITALS: BP 97/57; PULSE 73; RESP 18; TEMP 97.7; O2SAT 95
[2025-02-03] MEDS: ACCU-CHEK COMFORT CURVE STRIP VI SCH (18:20)
[2025-02-03] MEDS: InsuLIN REG 1unit/0.01ml Soln (100units/ml) SC SCH (18:28)
[2025-02-03 21:00] VITALS: BP 114/59; PULSE 70; RESP 16; TEMP 97.6; O2SAT 97
[2025-02-03] MEDS: HYDROcodone-ACET 5/325MG TAB PO PRN (22:04)
[2025-02-04] VITALS (8 sets, daily range): BP systolic 100–135; BP diastolic 52–81; PULSE 65–121; RESP 16–18; TEMP 97.2–98.2; O2SAT 91–97
--- NOTE | 2025-02-04 06:55 | DVHPN2 ---
Progress Note Date Seen: Feb 04, 2025 Medical Necessity Reason Pt with a Central, PICC or Fol: No Objective vital signs Vital Sign Date Time Temp Pulse Resp B/P (MAP) Pulse Ox O2 Delivery O2 Flow Rate FiO2 02/04/25 05:00 98.1 65 18 116/63 (80) 95 98.1 02/03/25 20:00 Nasal Cannula* 2 28 Total Intake and Output 02/03/25 02/03/25 02/04/25 15:00 23:00 07:00 Intake Total 100 ml 800 ml 440 ml Output Total 50 ml 70 ml Balance 50 ml 730 ml 440 ml medications Current Medications Medications Dose Ordered Sig/Randy Route Start Time Stop Time Status Last Admin Dose Admin Levofloxacin/ Dextrose 100 ml @ 100 mls/hr DAILY IV 02/03/25 10:00 Metronidazole 100 ml @ 100 mls/hr Q8HR IV 02/03/25 14:00 02/04/25 05:31 100 MLS/HR Pantoprazole Sodium 40 mg DAILY IV 02/03/25 10:00 02/03/25 10:21 40 MG Ondansetron HCl 4 mg Q4HPRN PRN IV 02/03/25 09:30 Hydromorphone HCl 1 mg Q3HPRN PRN IV 02/03/25 09:30 Nitroglycerin 0.4 mg Q5MINP PRN SL 02/03/25 11:15 Morphine Sulfate 2 mg Q30M PRN IV 02/03/25 11:45 Potassium Chloride/Dextrose/ Sod Cl 1,000 ml @ 100 mls/hr Q10H IV 02/03/25 13:45 02/03/25 23:31 100 MLS/HR Acetaminophen/ Hydrocodone Bitart 1 tab Q6HPRN PRN PO 02/03/25 13:45 02/03/25 22:04 1 TAB Diagnostic Test (Pha) 1 strip Q6HR 02/03/25 18:00 02/04/25 05:31 1 STRIP Insulin Human Regular Q6HR SC 02/03/25 18:00 02/04/25 05:44 2 UNITS Dextrose 50 ml UD PRN IV 02/03/25 14:00 laboratory and microbiology Laboratory Tests 02/02/25 09:30 Test 02/02/25 09:30 Range/Units Serum Glucose 154 H 74-106 mg/dL Problem List/Assessment/Plan Problem List/Assessment/Plan 02/04/25 is hungry, wounds clean and well approximated, abdomen appropriately tender, labs pending, afebrile, normotensive, j.p. drainage non bilious advance diet and ambulation, if bilirubin is normal she could go home tomorrow AM, Plan discussed with: Patient CAMILA KO MD Feb 04, 2025 06:55
[2025-02-04 07:53] LABS: Hematocrit 31.1 % (36.0-46.0); Hemoglobin 10.2 g/dL (12.2-16.2); Mean Corpuscular Hemoglobin 28.5 pg (28.0-32.0); Mean Corpuscular Volume 86.8 fL (80.0-100.0); Nucleated Red Blood Cells % 0.0 %
[2025-02-04 07:54] LABS: Alanine Aminotransferase 32 U/L (7-40); Albumin 3.9 g/dL (3.2-4.8); Anion Gap 9 (5-15); BUN/Creatinine Ratio 15.4 (10.0-20.0); Blood Urea Nitrogen 14 mg/dL (9-23); Carbon Dioxide 26 mmol/L (20-31); Chloride 104 mmol/L (98-107); Potassium 4.4 mmol/L (3.5-5.1); Sodium 139 mmol/L (136-145); Total Protein 6.3 g/dL (5.7-8.2)
[2025-02-04 08:04] LABS: Alkaline Phosphatase 42 U/L (46-116); Bilirubin, Total 0.3 mg/dL (0.2-1.0); Calcium 8.7 mg/dL (8.7-10.4); Glucose 150 mg/dL (74-106)
--- NOTE | 2025-02-04 11:16 | DVHPN2 ---
Progress Note Date Seen: Feb 04, 2025 Medical Necessity Reason Pt with a Central, PICC or Fol: No Subjective Patient reports: No new complaints Review of Systems: HEENT:Normal, CVS:Normal, RESPIRATORY:Normal, GI:Normal, :Normal, MSK:Normal, NEURO:Normal Objective vital signs Vital Sign Date Time Temp Pulse Resp B/P (MAP) Pulse Ox O2 Delivery O2 Flow Rate FiO2 02/04/25 09:49 97.8 67 16 122/71 (88) 97 97.8 02/03/25 20:00 Nasal Cannula* 2 28 Total Intake and Output 02/03/25 02/03/25 02/04/25 15:00 23:00 07:00 Intake Total 100 ml 800 ml 440 ml Output Total 50 ml 70 ml Balance 50 ml 730 ml 440 ml medications Current Medications Medications Dose Ordered Sig/Randy Route Start Time Stop Time Status Last Admin Dose Admin Levofloxacin/ Dextrose 100 ml @ 100 mls/hr DAILY IV 02/03/25 10:00 02/04/25 10:06 100 MLS/HR Metronidazole 100 ml @ 100 mls/hr Q8HR IV 02/03/25 14:00 02/04/25 05:31 100 MLS/HR Pantoprazole Sodium 40 mg DAILY IV 02/03/25 10:00 02/04/25 09:14 40 MG Ondansetron HCl 4 mg Q4HPRN PRN IV 02/03/25 09:30 Hydromorphone HCl 1 mg Q3HPRN PRN IV 02/03/25 09:30 Nitroglycerin 0.4 mg Q5MINP PRN SL 02/03/25 11:15 Morphine Sulfate 2 mg Q30M PRN IV 02/03/25 11:45 Potassium Chloride/Dextrose/ Sod Cl 1,000 ml @ 100 mls/hr Q10H IV 02/03/25 13:45 02/04/25 09:54 100 MLS/HR Acetaminophen/ Hydrocodone Bitart 1 tab Q6HPRN PRN PO 02/03/25 13:45 02/03/25 22:04 1 TAB Diagnostic Test (Pha) 1 strip Q6HR 02/03/25 18:00 02/04/25 05:31 1 STRIP Insulin Human Regular Q6HR SC 02/03/25 18:00 02/04/25 05:44 2 UNITS Dextrose 50 ml UD PRN IV 02/03/25 14:00 Examination: GENERAL:Normal, HEENT:Normal, NECK:Normal, LUNGS:Normal, CVS:Normal, ABDOMEN:Normal, ABDOMEN:Abnormal (thong drain), MSK:Normal, SKIN:Normal, NEURO:Normal, :Normal laboratory and microbiology Laboratory Tests 02/04/25 06:52 Test 02/04/25 06:52 Range/Units Serum Glucose 150 H 74-106 mg/dL Microbiology Date/Time Source Procedure Growth Status 02/03/25 12:38 Gallbladder Fluid Gram Stain Pending Resulted 02/03/25 12:38 Gallbladder Fluid Anaerobic Culture - Preliminary Resulted 02/03/25 12:38 Gallbladder Fluid Aerobic Culture Pending Resulted Problem List/Assessment/Plan Problem List/Assessment/Plan * Diabetes mellitus for which she will be placed on sliding scale insulin. * Hypertension. * Hyperlipidemia. * Status post laparoscopic cholecystectomy for cholelithiasis and chronic cholecystitis for which she will be placed on IV fluids and pain medications. ADVANCED CARE PLANNING: The patient is a full code-TIME SPENT: 18 minutes. Plan discussed with: Patient My Orders My Orders Orders - GATITO LILLY MD Procedure Category Date Status Time Pharmacy ABBE 02/03/25 In Process Clarification: 23:59 D5w/Sod Chl 0.45%/Kcl PHA 02/03/25 In Process 20meq 13:45 Hydrocodone-Acet PHA 02/03/25 In Process 5/325mg Tab ([place] 13:45 Glucose Blood PHA 02/03/25 In Process (Accu-Chek Comfort 18:00 Insulin R (Human) PHA 02/03/25 In Process (Insulin R) 18:00 Dextrose 50% Syringe PHA 02/03/25 In Process 14:00 Date of Service: Feb 04, 2025 Billing Provider: GATITO LILLY MD Common Visit Codes: [id number] INP/OBS CARE(HIGH) Secondary Visit Codes: [id number] CARE PLAN 30 MINUTES GATITO LILLY MD Feb 04, 2025 11:16
[2025-02-04] MEDS: D5W/SOD CHL 0.45%/KCL 20MEQ 1,000 ML IV SCH (11:35)
[2025-02-04] MEDS: HYDROmorphone HCL 2 MG/ML VL/or syr IV PRN (17:18)
[2025-02-04] MEDS: ONDANSETRON HCL 4 MG/2 ML VIAL IV PRN (23:22)
[2025-02-05] VITALS (7 sets, daily range): BP systolic 120–150; BP diastolic 57–80; PULSE 72–95; RESP 17–20; TEMP 96.1–98.5; O2SAT 90–97
[2025-02-05 07:22] LABS: Alanine Aminotransferase 32 U/L (7-40); Albumin 3.7 g/dL (3.2-4.8); Alkaline Phosphatase 49 U/L (46-116); Anion Gap 9 (5-15); BUN/Creatinine Ratio 10.7 (10.0-20.0); Blood Urea Nitrogen 11 mg/dL (9-23); Carbon Dioxide 23 mmol/L (20-31); Chloride 105 mmol/L (98-107); Potassium 4.3 mmol/L (3.5-5.1); Sodium 137 mmol/L (136-145); Total Protein 6.3 g/dL (5.7-8.2)
[2025-02-05 07:23] LABS: Bilirubin, Total 0.2 mg/dL (0.2-1.0); Calcium 8.7 mg/dL (8.7-10.4); Glucose 219 mg/dL (74-106)
--- NOTE | 2025-02-05 07:29 | ECG ---
[facility] Test Date: 2025-02-04 Test Time: 10:01:18 Pat Name: HEATH BERMAN Department: Room: 0293 A Gender: F Non Acoustic Operator: kevin : 1955 Requested By: CAMILA KO Order Number: [id number] Reading MD: Jerson Richardson Measurements Intervals [place] Rate: 63 P: 49 [place]: 160 QRS: 28 QRSD: 82 T: 87 QT: 398 QTc: 408 Interpretive Statements Sinus rhythm Electronically Signed On 02-06-2025 19:47:14 PDT by Jerson Richardson Please click the below link to view image of tracing.
[2025-02-05 07:36] LABS: Hematocrit 30.6 % (36.0-46.0); Hemoglobin 10.3 g/dL (12.2-16.2); Mean Corpuscular Hemoglobin 29.3 pg (28.0-32.0); Mean Corpuscular Volume 87.3 fL (80.0-100.0); Nucleated Red Blood Cells % 0.0 %
--- NOTE | 2025-02-05 11:30 | DVHPN2 ---
Subjective Patient reporting hypoxia overnight. Left arm pain. Reviewed: Care Plan, H&P, Labs, Medications Changes from previous H/P or p: No Changes General: Per HPI Objective Vitals Vital Signs Date Time Temp Pulse Resp B/P (MAP) Pulse Ox O2 Delivery O2 Flow Rate FiO2 02/05/25 09:00 97.8 74 20 133/69 (90) 91 97.8 02/05/25 08:19 Room Air* 0 21 Intake/Output Intake and Output 02/05/25 07:00 Intake Total 2200 ml Balance 2200 ml Intake Oral 950 ml IV Total 1250 ml # Voids 6 # Bowel Movements 3 General Appearance: Alert, Oriented X3, Cooperative, mild distress HEENT: Atraumatic, PERRLA Lungs: Clear to auscultation, Normal air movement Cardiovascular: Normal S1, Normal S2 Abdomen: Normal bowel sounds, Soft, No tenderness Musculoskeletal: Normal sensory function, Normal motor function Skin: Dry, Intact Psych/Mental Status: Mental status NL, Mood NL Medications Current Medications Medications Dose Ordered Sig/Randy Route Start Time Stop Time Status Last Admin Dose Admin Levofloxacin/ Dextrose 100 ml @ 100 mls/hr DAILY IV 02/03/25 10:00 02/05/25 10:13 100 MLS/HR Metronidazole 100 ml @ 100 mls/hr Q8HR IV 02/03/25 14:00 02/05/25 05:26 100 MLS/HR Pantoprazole Sodium 40 mg DAILY IV 02/03/25 10:00 02/05/25 10:13 40 MG Ondansetron HCl 4 mg Q4HPRN PRN IV 02/03/25 09:30 02/04/25 23:22 4 MG Hydromorphone HCl 1 mg Q3HPRN PRN IV 02/03/25 09:30 02/04/25 17:18 1 MG Nitroglycerin 0.4 mg Q5MINP PRN SL 02/03/25 11:15 Morphine Sulfate 2 mg Q30M PRN IV 02/03/25 11:45 Acetaminophen/ Hydrocodone Bitart 1 tab Q6HPRN PRN PO 02/03/25 13:45 02/05/25 04:02 1 TAB Diagnostic Test (Pha) 1 strip Q6HR 02/03/25 18:00 02/05/25 05:26 1 STRIP Insulin Human Regular Q6HR SC 02/03/25 18:00 02/05/25 05:34 3 UNITS Dextrose 50 ml UD PRN IV 02/03/25 14:00 Potassium Chloride/Dextrose/ Sod Cl 1,000 ml @ 75 mls/hr [id number] IV 02/04/25 11:15 02/05/25 01:26 75 MLS/HR Laboratory Results Laboratory Tests 02/05/25 06:20 02/05/25 07:24 Chemistry Test 02/05/25 06:20 Albumin 3.7 g/dL (3.2-4.8) Calcium Level 8.7 mg/dL (8.7-10.4) Total Protein 6.3 g/dL (5.7-8.2) LFT Test 02/05/25 06:20 Alanine Aminotransferase (ALT) 32 U/L (7-40) Alkaline Phosphatase 49 U/L (46-116) Aspartate Amino Transferase (AST) 36 U/L (13-40) Total Bilirubin 0.2 mg/dL (0.2-1.0) Urinalysis Test 02/02/25 09:30 Urine Color Light-yellow (Yellow) Urine Clarity Clear (Clear) Urine pH 6.0 (5.0-9.0) Urine Specific [place] 1.021 (1.001-1.035) Urine Protein Negative (Negative) Urine Ketones Negative (Negative) Urine Blood Negative /uL (Negative) Urine Nitrite Negative (Negative) Urine Bilirubin Negative (Negative) Urine Urobilinogen Normal mg/dL (Negative) Urine Leukocyte Esterase 2+ /uL (Negative) Urine RBC 2 /hpf (0 - 4) Urine Microscopic WBC 13 /HPF (0-5) H Urine Squamous Epithelial Cells Few /hpf (<5) Urine Bacteria Few /hpf (None Seen) H Urine Glucose Normal mg/dL (Normal) Microbiology Microbiology Date/Time Source Procedure Growth Status 02/03/25 12:38 Gallbladder Fluid Gram Stain - Final Resulted 02/03/25 12:38 Gallbladder Fluid Anaerobic Culture - Preliminary Resulted 02/03/25 12:38 Gallbladder Fluid Aerobic Culture - Preliminary Resulted Labs and/or images reviewed: Labs reviewed by me, Image(s) reviewed by me Assessment/Plan Assessment/Plan Impression: -cholelithiasis/cholecystitis, status post cholecystectomy -acute hypoxic respiratory failure -diabetes mellitus -dyslipidemia -primary hypertension Plan: -events: Patient had normal oxygen saturation until yesterday evening. Noted left arm pain with swelling, secondary to IV infiltration -O2 saturation 90% on room air. Stat chest x-ray. If chest x-ray unremarkable, rule out PE with CT angiogram of the chest -continue antibiotic therapy with Levaquin, Flagyl -PPI -advance diet as tolerated -pain management Total time spent with patient discussing and formulating plan of care: 35 minutes. This medical document was created using an electronic medical record system with [employer] dictation system. Although this document has been carefully reviewed, there may still be some phonetic and typographical errors. These areas are purely typographical due to imperfections of the software programs, and do not reflect any compromise in the patient's medical care. Plan discussed with: Patient, Other (RN) My Orders Orders - ABDOULAYE BLANDON NP Procedure Category Date Status Time Chest Xray 1 View XY 02/05/25 Logged 11:19 Date of Service: Feb 05, 2025 Billing Provider: ABDOULAYE BLANDON NP Common Visit Codes: [id number] INP/OBS CARE(HIGH) ABDOULAYE BLANDON NP Feb 05, 2025 11:30
--- NOTE | 2025-02-05 12:06 | DVH ---
CHEST RADIOGRAPH Indication: chf Technique: Single frontal view of the chest was obtained Comparison: None FINDINGS: Lines and Tubes: None Lungs: No focal consolidation. Bilateral areas of scarring or linear atelectasis. No prior studies fo r comparison Pleura: No effusion. No pneumothorax. Cardiomediastinal contours: Unremarkable Bones: No acute osseous abnormality. IMPRESSION: 1. Bilateral areas of linear atelectasis or scarring. No prior studies for comparison.
[2025-02-05] MEDS ORDERED: methylPREDNISolone SOD SUCC 125 MG/2 ML VL IV ONE (16:00)
[2025-02-05] MEDS ORDERED: FAMOTIDINE INJECTION 40 MG in SODIUM CHL 0.9% 100 ML IV ONE (16:00)
[2025-02-05] MEDS ORDERED: diphenhdrAMINE HCL 50 MG/1 ML VL IV ONE (16:00)
[2025-02-06] VITALS (7 sets, daily range): BP systolic 134–160; BP diastolic 73–98; PULSE 78–90; RESP 13–20; TEMP 36.5; O2SAT 90–96
[2025-02-06] MEDS: ACETAMINOPHEN 500 MG TAB or CAP PO PRN (02:51)
[2025-02-06] MEDS ORDERED: LEVO500T91 PO (17:36)
[2025-02-06] MEDS ORDERED: METR-344 PO (17:36)
--- NOTE | 2025-02-06 17:36 | DVHDS2 ---
Discharge Summary Date of Admission Feb 03, 2025 at 11:09 Date of Discharge: Feb 06, 2025 Admitting Diagnosis Status post laparoscopic cholecystectomy for cholelithiasis and chronic cholecystitis Labs/Diagnostic Data: Laboratory Results Test 02/06/25 11:19 02/05/25 07:24 02/05/25 06:20 02/04/25 06:52 POC Glucose 176 mg/dl (70-106) White Blood Count 8.0 10^3/uL (4.4-10.8) Red Blood Count 3.51 10^6/uL (4.0-5.20) Hemoglobin 10.3 g/dL (12.2-16.2) Hematocrit 30.6 % (36.0-46.0) Mean Corpuscular Volume 87.3 fL (80.0-100.0) Mean Corpuscular Hemoglobin 29.3 pg (28.0-32.0) Mean Corpuscular Hemoglobin Concent 33.5 g/dL (32.0-36.0) Red Cell Distribution Width 14.3 % (11.8-14.3) Platelet Count 318 10^3/uL (140-450) Mean Platelet Volume 7.9 fL (6.9-10.8) Neutrophils (%) (Auto) 58.7 % (37.0-80.0) Lymphocytes (%) (Auto) 31.3 % (10.0-50.0) Monocytes (%) (Auto) 5.7 % (0.0-12.0) Eosinophils (%) (Auto) 3.1 % (0.0-7.0) Basophils (%) (Auto) 1.2 % (0.0-2.0) Neutrophils # (Auto) 4.7 10 ^3/uL (1.6-8.6) Lymphocytes # (Auto) 2.5 10 ^3/uL (0.4-5.4) Monocytes # (Auto) 0.5 10 ^3/uL (0-1.3) Eosinophils # (Auto) 0.2 10 ^3/uL (0-0.8) Basophils # (Auto) 0.1 10 ^3/uL (0-0.2) Nucleated Red Blood Cells 0.0 % Sodium Level 137 mmol/L (136-145) Potassium Level 4.3 mmol/L (3.5-5.1) Chloride Level 105 mmol/L (98-107) Carbon Dioxide Level 23 mmol/L (20-31) Anion Gap 9 (5-15) Blood Urea Nitrogen 11 mg/dL (9-23) Creatinine 1.03 mg/dL (0.550-1.02) Glomerular Filtration Rate Calc 58 mL/min (>90) BUN/Creatinine Ratio 10.7 (10.0-20.0) Serum Glucose 219 mg/dL (74-106) Calcium Level 8.7 mg/dL (8.7-10.4) Total Bilirubin 0.2 mg/dL (0.2-1.0) Aspartate Amino Transferase (AST) 36 U/L (13-40) Alanine Aminotransferase (ALT) 32 U/L (7-40) Alkaline Phosphatase 49 U/L (46-116) Total Protein 6.3 g/dL (5.7-8.2) Albumin 3.7 g/dL (3.2-4.8) Hemoglobin A1c 8.0 % A1C (<5.7) Test 02/02/25 09:30 Prothrombin Time 10.9 sec (9.3-11.8) Prothrombin Time INR 1.03 (0.9-1.15) Activated Partial Thromboplast Time 26.2 SEC (24.5-34.5) Urine Color Light-yellow (Yellow) Urine Clarity Clear (Clear) Urine pH 6.0 (5.0-9.0) Urine Specific B[place]on 1.021 (1.001-1.035) Urine Protein Negative (Negative) Urine Ketones Negative (Negative) Urine Blood Negative /uL (Negative) Urine Nitrite Negative (Negative) Urine Bilirubin Negative (Negative) Urine Urobilinogen Normal mg/dL (Negative) Urine Leukocyte Esterase 2+ /uL (Negative) Urine RBC 2 /hpf (0 - 4) Urine Microscopic WBC 13 /HPF (0-5) Urine Squamous Epithelial Cells Few /hpf (<5) Urine Bacteria Few /hpf (None Seen) Urine Glucose Normal mg/dL (Normal) Other Laboratory Tests 02/05/25 07:24 02/05/25 06:20 Brief Hx & Hospital Course: 70-year-old lady admitted to the hospital after laparoscopic cholecystectomy for cholelithiasis and chronic cholecystitis. Patient did well after surgery. At some point her oxygenation was a little bit on the lower side but that improved with spirometry. Patient is able to tolerate p.o. intake. She is cleared for discharge by surgery. Her saturation is 94% on room air. Condition at Discharge: Good Final Diagnosis/Problems List Laparoscopic cholecystectomy Cholelithiasis and chronic cholecystitis Acute transient hypoxemic respiratory failure/resolved likely secondary to atelectasis after surgery Diabetes UTI Dyslipidemia Hypertension Acute kidney injury/chronic kidney disease stage 2 and three/fluctuated Discharge Disposition: Home Discharge Instruct/Medications Diet: Consistent carbohydrate Activity: Light activity Follow Up/Referral: PCP within one week Surgery within one or two weeks Medications: Flagyl 500 mg 3 times a day for five days Levaquin 500 mg daily for five days Scheduled Amitriptyline Hcl (Amitriptyline Hcl), 50 MG PO HS, (Reported) Fenofibrate (Tricor), 145 MG PO DAILY, (Reported) Glipizide (Glipizide), 10 MG PO BID, (Reported) Losartan Potassium (Losartan Potassium), 50 MG PO DAILY, (Reported) Metformin Hydrochloride (Metformin Hcl), 500 MG PO BID, (Reported) Discontinued Medications Atorvastatin Calcium (Atorvastatin Calcium), 1 TAB PO DAILY, (Reported) Discontinued Reason: Prescription changed Insulin Glargine (Lantus), 15 UNIT SC QPM, (Reported) Discontinued Reason: Prescription changed 40 Discharge Statement: "Patient was advised to return to the ER or call 911 if any headaches, dizziness, shortness of breath, chest pain, abdominal pain, bleeding, fevers, or worsening of medical condition. Patient was counseled about treatment plan, medications, possible side effects, patientverbalized understanding. All questions were answered to the best of my ability. This discharge took greater then 30 minutes in planning, reviewing documentation, counseling the patient, and discussing with other team members." ASSESSMENT ASSESSMENT Assessment Date of Service: Feb 06, 2025 Billing Provider: COLETTE LEVINE MD Common Visit Codes: 17137-RTG/OBS DISCH DAY >30min COLETTE LEVINE MD Feb 06, 2025 17:35
== END 2025-02-06 19:30 | disposition home or self-care (01) | DRG 417 ==
LOC: SUR 06:47 → WEST WING 11:09
PROVIDERS: ADMIT Nurse Practitioner Acute Care; ATTEND Nurse Practitioner Acute Care
PROC: 0FT44ZZ Resection of Gallbladder, Percutaneous Endoscopic Approach (ICD-10-PCS; principal; 2025-02-03 08:20)
DX: K80.10 Calculus of gallbladder with chronic cholecystitis without obstruction (principal); J96.01 Acute respiratory failure with hypoxia; N17.9 Acute kidney failure, unspecified; N39.0 Urinary tract infection, site not specified; J98.11 Atelectasis; E11.9 Type 2 diabetes mellitus without complications; E78.5 Hyperlipidemia, unspecified; E11.22 Type 2 diabetes mellitus with diabetic chronic kidney disease; N18.2 Chronic kidney disease, stage 2 (mild); I12.9 Hypertensive chronic kidney disease with stage 1 through stage 4 chronic kidney disease, or unspecified chronic kidney disease; Z88.0 Allergy status to penicillin; Z88.5 Allergy status to narcotic agent
CPT/HCPCS: 36415; 71045; 80053; 81001; 82247; 82962; 83036; 85025; 85610; 85730; 86850; 86900; 86901; 87070; 87075; 87205; 93005; G0378; J0131; J1100; J1815; J1956; J2250; J2405; J2470; J2704; J3490

== ENCOUNTER 2025-02-11 16:49 | Inpatient (IN) | payer OTHER ==
[~2025-02-11] VITALS: Ht 162.6 cm; Wt 64.6 kg
[~2025-02-11 16:49] MED LIST changes: +LEVO500T91 PO; +LOSA-534 PO; +METR-344 PO
--- NOTE | 2025-02-11 17:18 | ED.PDOC ---
SOB-HPI HPI Comments This is a 70 year old female SARAHA presenting to the ED with chief complaint of SOB. Patient reports that she has been experiencing SOB with associated hyperglycemia at 576, excessive thirst, urinary frequency, fever, and cough with green sputum for the past 2 days. Patient relays that she recently had her gallbladder removed on 02/03, having a drain placed at this time. EMS notes patient is at 87% O2 saturation on RA, but goes up to 95% on 4L of O2. Patient denies any chest pain, dizziness, headache, chills, hemoptysis, or sore throat. Chief Complaint: Shortness of Breath Time Seen by MD: 17:15 Reviewed notes: Nurses Notes, Child Development Professor Notes, Medications, Allergies Information Source: Patient, Emergency Med Personnel Mode of Arrival: EMS Severity: Moderate Timing: Days Duration: Since onset Context: At Rest PE Risk Factors: Recent Surgery, None Prehospital treatment: Oxygen Modifying Factors: Nothing Associated Signs and Symptoms: Cough If cough with SOB: Productive, Green Past Medical History PAST MEDICAL HISTORY: Depression, DM, High Lipids, HTN Surgical History: Cholecystectomy, Hysterectomy, Tubal Ligation Surgical History (Other): Rt leg stent, colon resection 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 Family History Family History: Reviewed,noncontributory to illness Social History Smoker: Non-Smoker Alcohol: Denies ETOH Use Drugs: Denies Drug Use Lives In: Home Constitutional: reports: fever; denies: chills, diaphoresis, fatigue, malaise, sweats, weakness, others EENTM: denies: blurred vision, double vision, ear bleeding, ear discharge, ear drainage, ear pain, ear ringing, eye pain, eye redness, hearing loss, mouth pain, mouth swelling, nasal discharge, nose bleeding, nose congestion, nose pain, photophobia, tearing, throat pain, throat swelling, voice changes, others Respiratory: reports: cough, shortness of breath; denies: hemoptysis, orthopnea, SOB at rest, SOB with excertion, stridor, wheezing, others Cardiovascular: denies: chest pain, dizzy spells, diaphoresis, Dyspnea on exertion, edema, irregular heart beat, left arm pain, lightheadedness, pal pitations, PND, syncope, others Gastrointestinal: denies: abdomen distended, abdominal pain, blood streaked bowels, constipated, diarrhea, dysphagia, difficulty swallowing, hematemesis, melena, nausea, poor appetite, poor fluid intake, rectal bleeding, rectal pain, vomiting, others Genitourinary: denies: abnormal vagina bleeding, burning, dyspareunia, dysuria, flank pain, frequency, hematuria, incontinence, pain, , vagina discharge, urgency, others Neurological: denies: dizziness, fainting, headache, left sided numbness, left sided weakness, numbness, paresthesia, pre-existing deficit, right sided numbness, right sided weakness, seizure, speech problems, tingling, tremors, weakness, others Musculoskeletal: denies: back pain, gout, joint pain, joint swelling, muscle pain, muscle stiffness, neck pain, others Integumetry: denies: bruises, change in color, change in hair/nails, dryness, laceration, lesions, lumps, rash, wounds, others Allergic/Immunocompromised: denies: Difficulty Healing, Frequent Infections, Hives, Itching, others Hematologic/Lymphatic: denies: anemia, blood clots, easy bleeding, easy b ruising, swollen glands, others Endocrine: reports: excessive thirst, excessive urination; denies: excessive hunger, excessive sweating, flushing, intolerance to cold, intolerance to heat, unexplained weight gain, unexplained weight loss, others Psychiatric: denies: anxiety, bipolar disorder, depression, hopeless, panic disorder, schizophrenia, sleepless, suicidal, others All Other Systems: Reviewed and Negative Physical Exam General Appearance: Moderate Distress HEENT: Normal ENT Inspection, Pharynx Normal, TMs Normal Neck: Full Range of Motion, Non-Tender, Normal, Normal Inspection Respiratory: Chest Non-Tender, Decreased Breath Sounds, No Accessory Muscle Use, Respiratory Distress, Rhonchi Cardiovascular: No Edema, No JVD, No Murmur, No Gallop, Normal Peripheral Pulses, Regular Rate/Rhythm Breast Exam: Deferred Gastrointestinal: No Organomegaly, Non Tender, No Pulsatile Mass, Normal Bowel Sounds, Soft Genitalia: Deferred Pelvic: Deferred Rectal: Deferred Extremities: No calf tenderness, Normal capillary refill, Normal inspection, Normal range of motion, Non-tender, No pedal edema Musculoskeletal : Apperance: Normal Neurologic: Alert, digital imaging technician II-XII nml as Tested, Motor Weakness, Normal Affect, Normal Mood, No Sensory Deficits Cerebellar Function: Normal Reflexes: Normal Skin: Dry, Pallor, Warm Lymphatic: No Adenopathy Was a procedure done? Was a procedure done?: No Differential Dx Differential Diagnosis: Bronchitis, CHF, COPD X-Ray, Labs, Meds, VS Vital Signs Date Time Temp Pulse Resp B/P (MAP) Pulse Ox O2 Delivery O2 Flow Rate FiO2 02/11/25 18:00 91 16 98 Nasal Cannula* 3 32 02/11/25 18:00 98.9 93 16 155/77 (103) 98 98.9 02/11/25 17:18 100.4 100 22 168/84 95 100.4 Lab Test 02/11/25 19:05 02/11/25 18:05 02/11/25 18:04 02/11/25 17:20 Range/Units POC Glucose 440 *H 439 *H 70-106 mg/dl Troponin I High Sensitivity 7 6 </=34 ng/L White Blood Count 10.1 # 4.4-10.8 10^3/uL Red Blood Count 3.53 L 4.0-5.20 10^6/uL Hemoglobin 10.2 L 12.2-16.2 g/dL Hematocrit 30.8 L 36.0-46.0 % Mean Corpuscular Volume 87.2 80.0-100.0 fL Mean Corpuscular Hemoglobin 28.8 28.0-32.0 pg Mean Corpuscular Hemoglobin Concent 33.0 32.0-36.0 g/dL Red Cell Distribution Width 15.0 H 11.8-14.3 % Platelet Count 376 140-450 10^3/uL Mean Platelet Volume 7.6 6.9-10.8 fL Neutrophils (%) (Auto) 77.5 37.0-80.0 % Lymphocytes (%) (Auto) 11.8 10.0-50.0 % Monocytes (%) (Auto) 10.1 0.0-12.0 % Eosinophils (%) (Auto) 0.3 0.0-7.0 % Basophils (%) (Auto) 0.3 0.0-2.0 % Neutrophils # (Auto) 7.8 1.6-8.6 10 ^3/uL Lymphocytes # (Auto) 1.2 0.4-5.4 10 ^3/uL Monocytes # (Auto) 1.0 0-1.3 10 ^3/uL Eosinophils # (Auto) 0 0-0.8 10 ^3/uL Basophils # (Auto) 0 0-0.2 10 ^3/uL Nucleated Red Blood Cells 0.1 % Sodium Level 139 136-145 mmol/L Potassium Level 4.0 3.5-5.1 mmol/L Chloride Level 101 98-107 mmol/L Carbon Dioxide Level 29 20-31 mmol/L Anion Gap 9 5-15 Blood Urea Nitrogen 12 9-23 mg/dL Creatinine 0.88 0.550-1.02 mg/dL Glomerular Filtration Rate Calc 70 >90 mL/min BUN/Creatinine Ratio 13.6 10.0-20.0 Serum Glucose 515 *H 74-106 mg/dL Lactic Acid Level 1.9 0.4-2.0 mmol/L Calcium Level 9.4 8.7-10.4 mg/dL B-Type Natriuretic Peptide 83.34 0-100 pg/mL Beta-Hydroxybutyric Acid 0.141 < 0.4 mmol/L Current Medications Medications (Trade) Dose Ordered Sig/Randy Route Start Time Stop Time Status Last Admin Insulin Human Regular (InsuLIN R) 5 units ONCE ONCE IV 02/11/25 17:00 02/11/25 17:01 DC 02/11/25 18:23 Chest XR indicates: The cardiac silhouette is unremarkable. The lungs demons trate bilateral patchy airspace opacities. The pulmonary vasculature is prominent. Moderate right and small left pleural effusions. There is no pneumothorax. Hep-Lock will be established. The patient was given insulin 5 units IV push The patient's serum glucose was 515 The patient's CBC shows anemia with a hemoglobin of 10.2 The patient's troponin level is negative At this time, the patient is being admitted to the hospitalist. We are able to speak with Dr. Russell who is the surgeon on-call and he will c onsult on this patient The patient was started on vancomycin as well as Levaquin The patient is being given normal saline per sepsis protocol The patient has been given insulin for the hyperglycemia The patient is being admitted at this time Images Reviewed?: Images reviewed and evaluated by me Time of 1ST Reevaluation: 19:44 Reevaluation 1ST: Unchanged Patient Education/Counseling: Diagnosis, Treatment, Prognosis Family Education/Counseling: No Family Present SEPSIS Sepsis Screen Physician Orders Urinalysis (02/11/25 16:53) Chest Portable (02/11/25 16:53) Heplock Iv (02/11/25 16:53) Pulse Oximetry (02/11/25 16:53) Spice Fumigator (02/11/25 16:53) Blood Pressure (02/11/25 16:53) Blood Culture (02/11/25 16:53) Troponin-I Hs (02/11/25 19:53) Sodium Chloride 0.9% (02/11/25 19:30) Vancomycin 1gm/250ml Kit (02/11/25 19:30) Levofloxacin 500mg (Levaquin 500mg/ 100m (02/11/25 19:30) Ct Ab Pel Wo Con-No Oral Or Iv (02/11/25 19:21) Vital Signs Date Time Temp Pulse Resp B/P (MAP) Pulse Ox O2 Delivery O2 Flow Rate FiO2 02/11/25 18:00 91 16 98 Nasal Cannula* 3 32 02/11/25 18:00 98.9 93 16 155/77 (103) 98 98.9 02/11/25 17:18 100.4 100 22 168/84 95 100.4 Laboratory Tests Test 02/11/25 17:20 Lactic Acid Level 1.9 mmol/L (0.4-2.0) White Blood Count 10.1 10^3/uL (4.4-10.8) # Medications Medications Dose Ordered Sig/Randy Route Start Time Stop Time Status Last Admin Dose Admin Insulin Human Regular 5 units ONCE ONCE IV 02/11/25 17:00 02/11/25 17:01 DC 02/11/25 18:23 Departure 1 Departure Time of Disposition: 19:20 Impression: Primary Impression: Sepsis Qualified Codes: A41.9 - Sepsis, unspecified organism Additional Impressions: Pneumonia Qualified Codes: J18.9 - Pneumonia, unspecified organism Pleural effusion Disposition: ADMITTED INPATIENT Admit to: Tele Condition: Fair Critical Care Note Critical Care Time?: No Stability Stability form required: Yes Unstable for transfer: Telemetry monitoring (Telemetry monitoring required), ED Physician Assesment (Clinical assesment) Heart Score Heart Score: Heart Score Response (Comments) Value History N/A 0 EKG N/A 0 Age N/A 0 Risk Factors N/A 0 Troponin N/A 0 Total 0 I personally scribed for ROMY HOUGH MD ([email or web address]) on 02/11/25 at 17:18. Electronically submitted by Dickson Sweeney ([email or web address]). I personally scribed for ROMY HOUGH MD ([email or web address]) on 02/11/25 at 18:24. Electronically submitted by Dickson Sweeney ([email or web address]). ROMY HOUGH MD Feb 11, 2025 17:18
[2025-02-11 18:00] VITALS: PULSE 91; RESP 16; O2SAT 98
[2025-02-11 18:03] LABS: Chloride 101 mmol/L (98-107); Potassium 4.0 mmol/L (3.5-5.1); Sodium 139 mmol/L (136-145)
[2025-02-11 18:04] LABS: Anion Gap 9 (5-15); Calcium 9.4 mg/dL (8.7-10.4); Carbon Dioxide 29 mmol/L (20-31); Hematocrit 30.8 % (36.0-46.0); Hemoglobin 10.2 g/dL (12.2-16.2); Mean Corpuscular Hemoglobin 28.8 pg (28.0-32.0); Mean Corpuscular Volume 87.2 fL (80.0-100.0); Nucleated Red Blood Cells % 0.1 %
--- NOTE | 2025-02-11 18:08 | DVH ---
CHEST RADIOGRAPH Indication: weakness Technique: XY CHEST PORTABLE COMPARISON: None FINDINGS: The cardiac silhouette is unremarkable. The lungs demonstrate bilateral patchy airspace opacities. Th e pulmonary vasculature is prominent. Moderate right and small left pleural effusions. There is no pn eumothorax. IMPRESSION: As above
[2025-02-11 18:09] LABS: BUN/Creatinine Ratio 13.6 (10.0-20.0); Blood Urea Nitrogen 12 mg/dL (9-23)
[2025-02-11 18:14] LABS: Glucose 515 mg/dL (74-106)
[2025-02-11] MEDS: InsuLIN REG 1unit/0.01ml Soln (100units/ml) IV ONE ×2 (18:23→20:09)
[2025-02-11] MEDS: guaiFENesin-DM 100/10mg/5ml SYR PO ONE (20:12)
--- NOTE | 2025-02-11 20:15 | DVH ---
Exam: CT CT AB PEL WO CON-NO ORAL OR IV History: pain Comparison Study: US ABDOMEN COMPLETE SONOGRAM on DOS: 07/03/24, CT ABD PELVIS WO CONTRAST on DOS: 08/25, CT ABD PELVIS WO CONTRAST on DOS: 08/05/21 Technique: Multidetector spiral CT of the abdomen was performed from lung bases to pubic symphysis. I maging was performed without IV contrast. Axial, coronal and sagittal multiplanar reformats were obta ined from the axial data set by the technologist. Radiation Dose : 1. Abdomen/Pelvis: CTDIvol 5.96 mGy, DLP 327.89 mGy*cm. Findings: Evaluation of solid organs is limited due to lack of intravenous contrast use. Lung Bases: Small right-sided pleural effusion. Bilateral breast implants. Coronary calcifications. Liver: The liver is normal in size. No focal lesions. Gallbladder and Biliary Tree: Gallbladder is surgically absent. Percutaneous transhepatic drain withi n the gallbladder fossa. No significant residual fluid collection. Spleen: Unremarkable Pancreas: The pancreas is grossly normal in appearance. Adrenal Glands: Unremarkable Kidneys: Kidneys are grossly normal without calculi or hydronephrosis. Right lower pole renal cyst me asuring 6.5 cm. Bladder: Grossly unremarkable for degree of distention. Bowel: The stomach is grossly normal in appearance. Small bowel and colon are normal in caliber and d istribution. The appendix is not visualized; however, no secondary findings of acute appendicitis chester ntified. Ascites: Absent Lymphadenopathy: No mesenteric, retroperitoneal or periportal lymphadenopathy. Abdominal Wall and Mesentery: Unremarkable. Vasculature: The visualized abdominal aorta is normal in size and caliber. Evaluation of abdominal a nd pelvic vessels is limited due to lack of intravenous contrast. Pelvic Organs: Unremarkable Musculoskeletal: No aggressive focal bony lesions, acute fractures or dislocation. IMPRESSION: No acute abdominal or pelvic findings. Radiation optimization: All CT scans at this facility use at least one of these dose optimization shona hniques: automated exposure control mA and/or kV adjustment per patient size (includes targeted exam s where dose is matched to clinical indication) or iterative reconstruction.
[2025-02-11] MEDS: SODIUM CHLORIDE 0.9% 1,650 ML IV ONE (20:17)
[2025-02-11] MEDS ORDERED: VANCOMYCIN PER PHARMACY 0 MG IV SCH (21:00)
[2025-02-11] MEDS: VANCOMYCIN 1GM/250ML KIT 250 ML IV ONE (21:00)
[2025-02-11] MEDS: SODIUM CHLORIDE 0.9% 500 ML IV ONE (21:49)
[2025-02-11] MEDS ORDERED: DEXTROSE (50%) 50ML SYRG IV PRN (22:00)
[2025-02-11 22:16] LABS: Cholesterol 80.0 mg/dL (< 200)
[2025-02-11] MEDS: ACCU-CHEK COMFORT CURVE STRIP VI SCH (22:21)
[2025-02-11 22:24] LABS: HDL Cholesterol 12.0 mg/dL (40-59); Magnesium 1.5 mg/dL (1.6-2.6); Triglycerides 262.0 mg/dL (< 150)
[2025-02-11] MEDS: InsuLIN REG 1unit/0.01ml Soln (100units/ml) SC SCH (22:25)
[2025-02-11 22:33] VITALS: BP 163/76; PULSE 93; RESP 20; TEMP 98.9; O2SAT 97
[2025-02-11 22:39] LABS: INR 0.97 (0.9-1.15); Partial Thromboplastin Time 29.4 SEC (24.5-34.5); Prothrombin Time 10.3 sec (9.3-11.8)
--- NOTE | 2025-02-11 23:03 | DVH ---
Chest ultrasound Clinical History: Right pleural effusion Comparison: XY CHEST PORTABLE on DOS: 02/11/25, XY CHEST XRAY 1 VIEW on DOS: 02/05/25, CXR2 on DOS: Technique: Targeted ultrasound of both the right and left chest was performed. Findings: Trace bilateral pleural effusions. Impression: Trace bilateral pleural effusions.
[2025-02-11 23:23] VITALS: PULSE 94; RESP 20; O2SAT 97
[2025-02-11 23:23] LABS: Amphetamine Screen, Urine Neg (NEGATIVE); Barbiturate Scree,Urine Neg (NEGATIVE); Benzodiazephine Screen, Urine Neg (NEGATIVE); Cannabinoid Screen, Urine Neg (NEGATIVE); Cocaine Screen, Urine Neg (NEGATIVE); Opiate Scree,Urine Neg (NEGATIVE); Phencyclidine Screen, Urine Neg (NEGATIVE)
[2025-02-11] MEDS: LEVALBUTEROL HCL 1.25 MG/3 ML NEB NEB SCH (23:24)
[2025-02-11] MEDS: ACETYLCYSTEINE 20%(200MG/ML) SOL 4ML NEB SCH (23:24)
[2025-02-11] MEDS: IPRATROPIUM BROM 0.5 MG/2.5ML INH SOL NEB SCH (23:24)
[2025-02-11] MEDS: IPRATROPIUM BROM 0.5 MG/2.5ML INH SOL ONE (23:25)
[2025-02-11] MEDS: ATORVASTATIN 20 MG TAB PO ONE (23:27)
[2025-02-11] MEDS: SODIUM CHLORIDE 0.9% 1,000 ML IV SCH (23:28)
[2025-02-11 23:33] VITALS: PULSE 97; RESP 20; O2SAT 97
[2025-02-11 23:33] LABS: Urine Protein, UAD TRACE (Negative)
[2025-02-12] VITALS (14 sets, daily range): BP systolic 126–149; BP diastolic 72–80; PULSE 70–106; RESP 17–22; TEMP 97.5–98.3; O2SAT 90–100
[2025-02-12] MEDS ORDERED: InsuLIN REG 1unit/0.01ml Soln (100units/ml) SC SCH
[2025-02-12] MEDS ORDERED: MORPHINE SULFATE INJ 2 MG/ml SYRG IV PRN (00:15)
--- NOTE | 2025-02-12 00:15 | DVHHPRES ---
History of Present Illness Resident Creating Document: SOPHIA DU History of Present Illness Jenae Bustillo is a 70-year-old female patient who presents to ED with chief complaint of dry cough which produced stabbing abdominal pain of right upper quadrant and dyspnea in functional class IV. Per patient these symptoms have been persistent since recent surgery from cholecystectomy, but have worsened since her discharge. Patient also complains of chills, nausea and one episode of vomiting with nonbloody emesis. Denies any sick contacts, fever, diarrhea, recent travel and changes in her diet. Past medical history: Hypertension, dyslipidemia, diabetes, peripheral artery disease status post stent placement in right lower limb, colon resection due to constipation in 2005, PTSD, abnormal uterine bleeding status post hysterectomy (gestations three, 0, para three) Surgical history: Right lower limb stent placement due to peripheral artery disease, colon resection, 2001 tummy tuck, cholecystectomy less than one month ago, partial hysterectomy due to abnormal uterine bleeding Family history: Brother and sister had brain cancer, father had bone cancer Social history: Lives in [place] alone (next of kin is son). Ex tobacco abuse (20 pack-year history of smoking) quit in 1989. Denies current tobacco, alcohol and other drug abuse Allergies: Penicillin, cilostazol, codeine Home medication: Metformin, losartan, fenofibrate, paroxetine, amitriptyline Patient seen and examined at bedside. Currently has no new complaints. Patient will be admitted for further evaluation. Past Medical History Per HPI Past Surgical History Per HPI Family History Per HPI Past Social History Per HPI Review of Systems Review of Systems Per HPI Allergies: Coded Allergies: Cilostazol (Verified Allergy, Intermediate, 11/20/23) Hives, vaginal bleeding Codeine (Verified Allergy, Unknown, RASH, 11/15/23) Penicillins (Verified Allergy, Unknown, RASH, 11/15/23) Medications Current Medications Medications Dose Ordered Sig/Randy Route Start Time Stop Time Status Last Admin Dose Admin Levofloxacin/ Dextrose 100 ml @ 100 mls/hr DAILY IV 02/12/25 10:00 Vancomycin HCl 0 ml @ 0 mls/hr UD IV 02/11/25 21:00 Sodium Chloride 1,000 ml @ 60 mls/hr [id number] IV 02/11/25 21:00 02/11/25 23:28 60 MLS/HR Diagnostic Test (Pha) 1 strip IQ4HR 02/12/25 00:00 02/11/25 22:21 1 STRIP Dextrose 50 ml UD PRN IV 02/11/25 22:00 Insulin Human Regular IQ4HR SC 02/11/25 22:15 02/11/25 22:25 15 UNITS Ipratropium Lowgap 0.5 mg Q6HWA NEB 02/12/25 06:00 02/11/25 23:24 0.5 MG Levalbuterol HCl 0.625 mg Q6HR NEB 02/12/25 00:00 02/11/25 23:24 0.625 MG Acetylcysteine 200 mg Q6HR NEB 02/12/25 00:00 02/11/25 23:24 200 MG Aspirin 81 mg DAILY PO 02/12/25 10:00 Atorvastatin Calcium 20 mg HS PO 02/12/25 22:00 Acetaminophen 325 mg Q4HP PRN PO 02/12/25 00:15 UNV Morphine Sulfate 2 mg Q4HPRN PRN IV 02/12/25 00:15 UNV Exam Vital Signs Vital Signs Date Time Temp Pulse Resp B/P (MAP) Pulse Ox O2 Delivery O2 Flow Rate FiO2 02/11/25 23:23 97 Nasal Cannula 3.0 02/11/25 23:23 32 02/11/25 23:23 94 20 02/11/25 22:33 98.9 163/76 98.9 Exam Patient lying in bed, in no acute distress General: Lucid, afebrile, mucosae are moist Cardiovascular: Normal S1 and S2. No murmurs, gallops or rubs Respiratory: Regular ventilation mechanics, tachypnea. Right base hyperventilation, rest of lung auscultation is clear. Currently is on nasal cannula at 3 L/min Abdomen: Soft, right upper quadrant tenderness on superficial palpation rest of abdomen nontender, no organomegaly, reduced bowel sounds. Surgical wound with no secretion, J peg tube persist in right upper quadrant, with green secretion, no pus. MSK/skin: Mobilizes 4 limbs. Skin is dry and warm Neurological: Oriented in 3 spheres. No motor no sensitive deficits. Pupils are isocoric and reactive Labs/Xrays Labs Test 02/11/25 23:01 02/11/25 22:21 02/11/25 21:30 02/11/25 21:00 Range/Units Urine Color Light-yellow Yellow Urine Clarity Clear Clear Urine pH 5.5 5.0-9.0 Urine Specific [place] 1.027 1.001-1.035 Urine Protein Trace H Negative Urine Ketones Negative Negative Urine Blood Negative Negative /uL Urine Nitrite Negative Negative Urine Bilirubin Negative Negative Urine Urobilinogen Normal Negative mg/dL Urine Leukocyte Esterase Negative Negative /uL Urine RBC 2 0 - 4 /hpf Urine Microscopic WBC 3 0-5 /HPF Urine Squamous Epithelial Cells Few <5 /hpf Urine Bacteria None seen None Seen /hpf Urine Glucose 4+ H Normal mg/dL POC Glucose 398 H 70-106 mg/dl Prothrombin Time 10.3 9.3-11.8 sec Prothrombin Time INR 0.97 0.9-1.15 Activated Partial Thromboplast Time 29.4 24.5-34.5 SEC Lactic Acid Level 1.3 0.4-2.0 mmol/L Phosphorus Level 3.3 2.4-5.1 mg/dL Magnesium Level 1.5 L 1.6-2.6 mg/dL Triglycerides Level 262 H < 150 mg/dL Cholesterol Level 80 < 200 mg/dL LDL Cholesterol 35 < 100 mg/dL HDL Cholesterol 12 L 40-59 mg/dL Vitamin B12 Level 2740 H 211-911 pg/mL Vitamin D 25-Hydroxy 37.5 30.0-100 ng/mL Thyroid Stimulating Hormone (TSH) 3.26 0.55-4.78 uIU/mL Urine Opiates Screen Neg NEGATIVE Urine Fentanyl Screen Neg NEGATIVE Urine Barbiturates Screen Neg NEGATIVE Urine Phencyclidine Screen Neg NEGATIVE Urine Amphetamines Screen Neg NEGATIVE Urine Benzodiazepines Screen Neg NEGATIVE Urine Cocaine Screen Neg NEGATIVE Urine Cannabinoids Screen Neg NEGATIVE Test 02/11/25 18:05 02/11/25 17:20 Range/Units Troponin I High Sensitivity 7 </=34 ng/L White Blood Count 10.1 # 4.4-10.8 10^3/uL Red Blood Count 3.53 L 4.0-5.20 10^6/uL Hemoglobin 10.2 L 12.2-16.2 g/dL Hematocrit 30.8 L 36.0-46.0 % Mean Corpuscular Volume 87.2 80.0-100.0 fL Mean Corpuscular Hemoglobin 28.8 28.0-32.0 pg Mean Corpuscular Hemoglobin Concent 33.0 32.0-36.0 g/dL Red Cell Distribution Width 15.0 H 11.8-14.3 % Platelet Count 376 140-450 10^3/uL Mean Platelet Volume 7.6 6.9-10.8 fL Neutrophils (%) (Auto) 77.5 37.0-80.0 % Lymphocytes (%) (Auto) 11.8 10.0-50.0 % Monocytes (%) (Auto) 10.1 0.0-12.0 % Eosinophils (%) (Auto) 0.3 0.0-7.0 % Basophils (%) (Auto) 0.3 0.0-2.0 % Neutrophils # (Auto) 7.8 1.6-8.6 10 ^3/uL Lymphocytes # (Auto) 1.2 0.4-5.4 10 ^3/uL Monocytes # (Auto) 1.0 0-1.3 10 ^3/uL Eosinophils # (Auto) 0 0-0.8 10 ^3/uL Basophils # (Auto) 0 0-0.2 10 ^3/uL Nucleated Red Blood Cells 0.1 % Sodium Level 139 136-145 mmol/L Potassium Level 4.0 3.5-5.1 mmol/L Chloride Level 101 98-107 mmol/L Carbon Dioxide Level 29 20-31 mmol/L Anion Gap 9 5-15 Blood Urea Nitrogen 12 9-23 mg/dL Creatinine 0.88 0.550-1.02 mg/dL Glomerular Filtration Rate Calc 70 >90 mL/min BUN/Creatinine Ratio 13.6 10.0-20.0 Serum Glucose 515 *H 74-106 mg/dL Calcium Level 9.4 8.7-10.4 mg/dL B-Type Natriuretic Peptide 83.34 0-100 pg/mL Beta-Hydroxybutyric Acid 0.141 < 0.4 mmol/L SEPSIS Sepsis Screen Date sepsis recognized/suspect: Feb 11, 2025 Time Sepsis recognized/suspect: 1800 Recent Procedure: Yes On Antibiotic Therapy: No Respiratory Rate >20: No Heart Rate >90: Yes Temp<36 C (96.8 F) or >38.3 C: No SBP <90 or MAP <65 mmHG: No New Acute Mental Status Change: No Is the patient on CPAP, BIPAP,: No Physician Orders Chest Portable (02/11/25 16:53) Heplock Iv (02/11/25 16:53) Pulse Oximetry (02/11/25 16:53) Oil Spraying Machine Operator (02/11/25 16:53) Blood Pressure (02/11/25 16:53) Blood Culture (02/11/25 16:53) Ct Ab Pel Wo Con-No Oral Or Iv (02/11/25 19:21) Electrocardigram (02/11/25 21:00) Complete Blood Count (02/12/25 04:00) Comprehensive Metabolic Panel (02/12/25 04:00) Electrocardigram (02/11/25 22:00) Electrocardigram (02/12/25 00:00) Urinalysis (02/11/25 21:00) Respiratory Culture W/ Gs (02/11/25 21:00) Urine Bacterial Culture (02/11/25 21:00) Rapid Influenza A&B (02/11/25 21:00) Covid19 Antigen Jayne (02/11/25 ) Chest Ultrasound (02/11/25 21:00) Mrsa Screen (02/11/25 21:00) Levofloxacin 500mg (Levaquin 500mg/ 100m (02/12/25 10:00) Vancomycin Per Pharmacy (02/11/25 21:00) Sodium Chloride 0.9% (02/11/25 21:00) Glucose Blood (Accu-Chek Comfort Curve T (02/12/25 00:00) Dextrose 50% Syringe (02/11/25 22:00) Vancomycin,Random (02/12/25 04:00) Insulin R (Human) (Insulin R) (02/11/25 22:15) Ipratropium Medneb (Atrovent Medneb) (02/12/25 06:00) Levalbuterol Hcl (Xopenex Medneb) (02/12/25 00:00) Acetylcysteine Inhalation 20% (Mucomyst (02/12/25 00:00) Aspirin Tablet (02/12/25 10:00) Atorvastatin (Lipitor) (02/12/25 22:00) Admit (02/12/25 00:05) Code Status (02/12/25 00:05) Acetaminophen Tablet (Tylenol Tablet) (02/12/25 00:15) Npo (Nothing By Mouth) Diet (02/12/25 Breakfast) Echo 2d Mode Cardiac Dop (02/12/25 00:05) Morphine Sulfate Injection (02/12/25 00:15) Oxygen By Nasal Cannula (02/12/25 00:05) Stat Ekg For Chest Pain (02/12/25 00:05) Notify Of Changes From Base (02/12/25 00:05) Spinner Open End For 24 Hours (02/12/25 00:05) Emergency Dysrhythmia Protocol (02/12/25 00:05) Rhythm Strips Once Every Shift (02/12/25 00:05) Hemoglobin A1c (02/13/25 04:00) * Surgical Consult (02/12/25 ) Vital Signs Date Time Temp Pulse Resp B/P (MAP) Pulse Ox O2 Delivery O2 Flow Rate FiO2 02/11/25 23:23 97 Nasal Cannula 3.0 02/11/25 23:23 97 Nasal Cannula* 3 32 02/11/25 23:23 94 20 97 02/11/25 22:33 98.9 93 20 163/76 97 3.0 32 98.9 02/11/25 20:00 92 21 163/76 (105) 90 02/11/25 18:00 91 16 98 Nasal Cannula* 3 32 02/11/25 18:00 98.9 93 16 155/77 (103) 98 98.9 02/11/25 17:18 100.4 100 22 168/84 95 100.4 Laboratory Tests Test 02/11/25 17:20 02/11/25 21:30 Lactic Acid Level 1.9 mmol/L (0.4-2.0) 1.3 mmol/L (0.4-2.0) White Blood Count 10.1 10^3/uL (4.4-10.8) # Medications Medications Dose Ordered Sig/Randy Route Start Time Stop Time Status Last Admin Dose Admin Acetylcysteine 200 mg Q6HR NEB 02/12/25 00:00 02/11/25 23:24 200 MG Aspirin 81 mg ONCE ONCE PO 02/11/25 22:30 02/11/25 22:31 DC 02/11/25 23:27 81 MG Atorvastatin Calcium 20 mg ONCE ONCE PO 02/11/25 22:30 02/11/25 22:31 DC 02/11/25 23:27 20 MG Diagnostic Test (Pha) 1 strip IQ4HR 02/12/25 00:00 02/11/25 22:21 1 STRIP Guaifenesin/ Dextromethorphan 10 ml ONCE ONCE PO 02/11/25 19:30 02/11/25 19:31 DC 02/11/25 20:12 10 ML Insulin Human Regular IQ4HR SC 02/11/25 22:15 02/11/25 22:25 15 UNITS Insulin Human Regular 5 units ONCE ONCE IV 02/11/25 17:00 02/11/25 17:01 DC 02/11/25 18:23 5 UNITS Insulin Human Regular 5 units ONCE ONCE IV 02/11/25 19:30 02/11/25 19:31 DC 02/11/25 20:09 5 UNITS Ipratropium Lowgap 0.5 mg Q6HWA NEB 02/12/25 06:00 02/11/25 23:24 0.5 MG Levalbuterol HCl 0.625 mg Q6HR NEB 02/12/25 00:00 02/11/25 23:24 0.625 MG Levofloxacin/ Dextrose 100 ml @ 100 mls/hr ONCE ONCE IV 02/11/25 19:30 02/11/25 20:29 DC 02/11/25 19:30 100 MLS/HR Sodium Chloride 1,000 ml @ 60 mls/hr [id number] IV 02/11/25 21:00 02/11/25 23:28 60 MLS/HR Sodium Chloride 1,650 ml @ 1,650 mls/hr ONCE ONCE IV 02/11/25 19:30 02/11/25 20:29 DC 02/11/25 20:17 1,650 MLS/HR Vancomycin HCl 250 ml @ 250 mls/hr ONCE ONCE IV 02/11/25 19:30 02/11/25 20:29 DC 02/11/25 21:00 250 MLS/HR Assessment/Plan Assessment/Plan ASSESSMENT Sepsis secondary to pneumonia Acute respiratory failure Community-acquired pneumonia positive/Gram-negative Recent cholecystectomy Rule out right pleural effusion Simple hyperglycemia PAD status post stent placement History of constipation status post colectomy PTSD Hypertension Dyslipidemia Diabetes History of abnormal uterine bleeding status post partial hysterectomy PLAN Admit patient to telemetry Currently on oxygen therapy with nasal cannula 3 L/min Currently under empiric IV antibiotic (levofloxacin and vancomycin) On IV fluids. Indicated bronchodilators Ordered chest ultrasound to evaluate presence of pleural effusion Completed abdomen and pelvis CT which showed no acute findings On insulin sliding scale Indicated aspirin atorvastatin due to stent placement Ordered surgery evaluation to decide whether patient can get YAS tube removed Awaiting results from cultures Goals of care discussed with patient for over 18 minutes: Full code status Discussed plan with Dr. Torrez, patient and nurses: Patient admitted to telemetry. Currently on oxygen therapy, IV antibiotics, bronchodilators and IV fluids Plan discussed with: Patient, Other (Nurses) My Orders Orders - SOPHIA DU RESIDENT Procedure Category Date Status Time Electrocardigram EKG 02/11/25 Logged 21:00 Complete Blood Count LAB 02/12/25 Logged 04:00 Comprehensive LAB 02/12/25 Logged Metabolic Panel 04:00 Electrocardigram EKG 02/11/25 Logged 22:00 Electrocardigram EKG 02/12/25 Logged 00:00 Urinalysis LAB 02/11/25 Logged 21:00 Respiratory Culture ERNST 02/11/25 Logged W/ Gs 21:00 Urine Bacterial ERNST 02/11/25 Logged Culture 21:00 Rapid Influenza A&B LAB 02/11/25 Logged 21:00 Covid19 Antigen Jayne LAB 02/11/25 Logged Chest Ultrasound US 02/11/25 Resulted 21:00 Mrsa Screen ERNST 02/11/25 Logged 21:00 Levofloxacin 500mg PHA 02/12/25 In Process (Levaquin 500mg/ 100m 10:00 Vancomycin Per PHA 02/11/25 In Process Pharmacy 21:00 Sodium Chloride 0.9% PHA 02/11/25 In Process 21:00 Glucose Blood PHA 02/12/25 In Process (Accu-Chek Comfort 00:00 Dextrose 50% Syringe PHA 02/11/25 In Process 22:00 Vancomycin,Random LAB 02/12/25 Logged 04:00 Insulin R (Human) PHA 02/11/25 In Process (Insulin R) 22:15 Ipratropium Medneb PHA 02/12/25 In Process (Atrovent Medneb) 06:00 Levalbuterol Hcl PHA 02/12/25 In Process (Xopenex Medneb) 00:00 Acetylcysteine PHA 02/12/25 In Process Inhalation 20% 00:00 Aspirin Tablet PHA 02/12/25 In Process 10:00 Atorvastatin (Lipitor) PHA 02/12/25 In Process 22:00 Admit ADMIT 02/12/25 Transmitted 00:05 Code Status CODE 02/12/25 Transmitted 00:05 Acetaminophen Tablet PHA 02/12/25 Logged (Tylenol Tablet) 00:15 Npo (Nothing By DIET 02/12/25 Transmitted Mouth) Diet Breakfast Echo 2d Mode Cardiac US 02/12/25 Logged DOP 00:05 Morphine Sulfate PHA 02/12/25 Logged Injection 00:15 Oxygen By Nasal RT 02/12/25 Transmitted Cannula 00:05 Stat Ekg For Chest [facility] 02/12/25 In Process Pain 00:05 Notify Md Of Changes [facility] 02/12/25 In Process From Base 00:05 Spinner Open End For [facility] 02/12/25 In Process 24 Hours 00:05 Emergency Dysrhythmia [facility] 02/12/25 In Process Protocol 00:05 Rhythm Strips Once [facility] 02/12/25 In Process Every Shift 00:05 Hemoglobin A1c LAB 02/13/25 Verified 04:00 * Surgical Consult CONS 02/12/25 Verified Date of Service: Feb 12, 2025 Billing Provider: LAZ TORREZ MD Common Visit Codes: 83082-[id number] INP/OBS CARE (HIGH) Secondary Visit Codes: 70285-[id number] CARE PLAN 30 MINUTES SOPHIA DU RESIDENT Feb 12, 2025 00:15
[2025-02-12] MEDS: ACETAMINOPHEN 325 MG TAB PO PRN (02:46)
[2025-02-12 05:19] LABS: COVID19 ANTIGEN SOFIA FIA NEGATIVE (NEGATIVE)
[2025-02-12] MEDS ORDERED: GLIP10TA9 PO (07:04)
[2025-02-12 09:41] LABS: Hematocrit 29.7 % (36.0-46.0); Hemoglobin 9.7 g/dL (12.2-16.2); Mean Corpuscular Hemoglobin 27.9 pg (28.0-32.0); Mean Corpuscular Volume 85.1 fL (80.0-100.0); Nucleated Red Blood Cells % 0.0 %
[2025-02-12 10:02] LABS: Alanine Aminotransferase 25 U/L (7-40); Anion Gap 11 (5-15); BUN/Creatinine Ratio 11.1 (10.0-20.0); Calcium 8.8 mg/dL (8.7-10.4); Carbon Dioxide 28 mmol/L (20-31); Chloride 104 mmol/L (98-107); Sodium 143 mmol/L (136-145); Total Protein 6.7 g/dL (5.7-8.2)
[2025-02-12 10:03] LABS: Albumin 3.7 g/dL (3.2-4.8); Bilirubin, Total 0.7 mg/dL (0.2-1.0)
[2025-02-12 10:16] LABS: Alkaline Phosphatase 388 U/L (46-116); Blood Urea Nitrogen 8 mg/dL (9-23); Glucose 191 mg/dL (74-106); Potassium 3.1 mmol/L (3.5-5.1)
[2025-02-12 10:29] LABS: Hepatitis B Surface Antigen Negative (Negative)
[2025-02-12 10:38] LABS: Hepatitis C Antibody Negative (Negative)
[2025-02-12] MEDS: VANCOMYCIN 1GM/250ML KIT 250 ML IV SCH (14:49)
[2025-02-12] MEDS: ATORVASTATIN 20 MG TAB PO SCH (21:39)
[2025-02-13] VITALS (16 sets, daily range): BP systolic 145–153; BP diastolic 73–82; PULSE 82–113; RESP 17–20; TEMP 97.8–98.3; O2SAT 85–97
--- NOTE | 2025-02-13 10:19 | DVHINCON2 ---
Date of service: Feb 13, 2025 Family History: Alcoholism G8 MOTHER G8 FATHER Colon cancer Diabetes mellitus G8 MOTHER FH: COPD (chronic obstructive pulmonary disease) G8 MOTHER FH: brain cancer G8 FATHER G8 BROTHER FH: smoking Kidney stones G8 MOTHER Suicide G8 SISTER Allergies: Coded Allergies: Cilostazol (Verified Allergy, Intermediate, 11/20/23) Hives, vaginal bleeding Codeine (Verified Allergy, Unknown, RASH, 11/15/23) Penicillins (Verified Allergy, Unknown, RASH, 11/15/23) Home Meds Reported Medications Glipizide (Glipizide) 10 Mg Tab, 10 MG PO DAILY, TAB 02/12/25 Losartan Potassium (Losartan Potassium) 50 Mg Tab, 50 MG PO DAILY for 30 Days, MG 02/03/25 Metformin Hydrochloride (Metformin Hcl) 500 Mg Tab, 500 MG PO BID, TAB 02/02/25 Fenofibrate (Tricor) 145 Mg Tab, 145 MG PO DAILY, TAB 02/02/25 Amitriptyline Hcl (Amitriptyline Hcl) 25 Mg Tab, 50 MG PO HS for DEPRESSION, MG 11/15/23 Glipizide (Glipizide) 10 Mg Tab, 10 MG PO BID for DIABETES, MG 07/31/21 Current Medications Current Medications Medications (Trade) Dose Ordered Sig/Randy Route PRN Reason Start Time Stop Time Status Last Admin Atorvastatin Calcium (Lipitor) 20 mg HS PO 02/12/25 22:00 02/12/25 21:39 Vancomycin HCl 250 ml @ 250 mls/hr Q12H IV 02/12/25 13:00 02/13/25 00:56 Vital Signs Vital Signs Date Time Temp Pulse Resp B/P (MAP) Pulse Ox O2 Delivery O2 Flow Rate FiO2 02/13/25 08:30 98.0 95 17 153/76 (101) 96 98.0 02/13/25 07:05 Nasal Cannula 1.0 02/13/25 07:05 24 Labs/Diagnostic Data Labs Test 02/13/25 08:06 02/12/25 09:08 02/11/25 23:01 02/11/25 21:30 Range/Units POC Glucose 206 H 70-106 mg/dl White Blood Count 11.2 H 4.4-10.8 10^3/uL Red Blood Count 3.49 L 4.0-5.20 10^6/uL Hemoglobin 9.7 L 12.2-16.2 g/dL Hematocrit 29.7 L 36.0-46.0 % Mean Corpuscular Volume 85.1 80.0-100.0 fL Mean Corpuscular Hemoglobin 27.9 L 28.0-32.0 pg Mean Corpuscular Hemoglobin Concent 32.7 32.0-36.0 g/dL Red Cell Distribution Width 14.7 H 11.8-14.3 % Platelet Count 411 140-450 10^3/uL Mean Platelet Volume 7.3 6.9-10.8 fL Neutrophils (%) (Auto) 77.1 37.0-80.0 % Lymphocytes (%) (Auto) 10.5 10.0-50.0 % Monocytes (%) (Auto) 11.7 0.0-12.0 % Eosinophils (%) (Auto) 0.3 0.0-7.0 % Basophils (%) (Auto) 0.4 0.0-2.0 % Neutrophils # (Auto) 8.6 1.6-8.6 10 ^3/uL Lymphocytes # (Auto) 1.2 0.4-5.4 10 ^3/uL Monocytes # (Auto) 1.3 0-1.3 10 ^3/uL Eosinophils # (Auto) 0 0-0.8 10 ^3/uL Basophils # (Auto) 0 0-0.2 10 ^3/uL Nucleated Red Blood Cells 0.0 % Sodium Level 143 136-145 mmol/L Potassium Level 3.1 L 3.5-5.1 mmol/L Chloride Level 104 98-107 mmol/L Carbon Dioxide Level 28 20-31 mmol/L Anion Gap 11 5-15 Blood Urea Nitrogen 8 L 9-23 mg/dL Creatinine 0.72 0.550-1.02 mg/dL Glomerular Filtration Rate Calc 89 >90 mL/min BUN/Creatinine Ratio 11.1 10.0-20.0 Serum Glucose 191 H 74-106 mg/dL Calcium Level 8.8 8.7-10.4 mg/dL Total Bilirubin 0.7 0.2-1.0 mg/dL Aspartate Amino Transferase (AST) 33 13-40 U/L Alanine Aminotransferase (ALT) 25 7-40 U/L Alkaline Phosphatase 388 H 46-116 U/L Total Protein 6.7 5.7-8.2 g/dL Albumin 3.7 3.2-4.8 g/dL Random Vancomycin Level 4.5 L 5-10 ug/mL Hepatitis B Surface Antigen Negative Negative Hepatitis C Antibody Negative Negative Urine Color Light-yellow Yellow Urine Clarity Clear Clear Urine pH 5.5 5.0-9.0 Urine Specific [place] 1.027 1.001-1.035 Urine Protein Trace H Negative Urine Ketones Negative Negative Urine Blood Negative Negative /uL Urine Nitrite Negative Negative Urine Bilirubin Negative Negative Urine Urobilinogen Normal Negative mg/dL Urine Leukocyte Esterase Negative Negative /uL Urine RBC 2 0 - 4 /hpf Urine Microscopic WBC 3 0-5 /HPF Urine Squamous Epithelial Cells Few <5 /hpf Urine Bacteria None seen None Seen /hpf Urine Glucose 4+ H Normal mg/dL Prothrombin Time 10.3 9.3-11.8 sec Prothrombin Time INR 0.97 0.9-1.15 Activated Partial Thromboplast Time 29.4 24.5-34.5 SEC Lactic Acid Level 1.3 0.4-2.0 mmol/L Phosphorus Level 3.3 2.4-5.1 mg/dL Magnesium Level 1.5 L 1.6-2.6 mg/dL Triglycerides Level 262 H < 150 mg/dL Cholesterol Level 80 < 200 mg/dL LDL Cholesterol 35 < 100 mg/dL HDL Cholesterol 12 L 40-59 mg/dL Vitamin B12 Level 2740 H 211-911 pg/mL Vitamin D 25-Hydroxy 37.5 30.0-100 ng/mL Thyroid Stimulating Hormone (TSH) 3.26 0.55-4.78 uIU/mL Test 02/11/25 21:00 02/11/25 18:05 02/11/25 17:20 02/11/25 00:00 Range/Units Urine Opiates Screen Neg NEGATIVE Urine Fentanyl Screen Neg NEGATIVE Urine Barbiturates Screen Neg NEGATIVE Urine Phencyclidine Screen Neg NEGATIVE Urine Amphetamines Screen Neg NEGATIVE Urine Benzodiazepines Screen Neg NEGATIVE Urine Cocaine Screen Neg NEGATIVE Urine Cannabinoids Screen Neg NEGATIVE Influenza Type A Antigen Negative Negative Influenza Type B Antigen Negative Negative Troponin I High Sensitivity 7 </=34 ng/L B-Type Natriuretic Peptide 83.34 0-100 pg/mL Beta-Hydroxybutyric Acid 0.141 < 0.4 mmol/L SARS-CoV-2 Antigen (Rapid) Negative NEGATIVE Microbiology Date/Time Source Procedure Growth Status 02/11/25 23:01 Voided Urine Urine Culture - Preliminary Resulted 02/11/25 17:20 Blood Blood Culture - Preliminary NO GROWTH AFTER 24 HOURS OF INCUBATION. Resulted Assessment PATIENT AFTER RECENT CHOLECYSTECTOMY (LAPAROSCOPIC), CAME IN WITH COUGH AND AB DOMINAL PAIN, NOW "GETTING BETTER", ABDOMEN NON DISTENDED, NON TENDER, CT SCAN WITH NO EVIDENCE OF COMPLICATING FINDINGS, THE FLUID IN THE YAS DRAIN IS BILE STAINED, WILL OBTAIN HIDA SCAN TO R/O SIGNIFICANT BILE LEAK. OK TO ALLOW PO DIET Plan discussed with: Patient CAMILA KO MD Feb 13, 2025 10:19
--- NOTE | 2025-02-13 14:47 | DVHPN2 ---
Subjective The patient is seen and examined at bedside. Complain of abdominal pain. Reviewed: Care Plan, H&P, Labs, Medications, Previous Orders, Radiology Changes from previous H/P or p: No Changes Objective Vitals Vital Signs Date Time Temp Pulse Resp B/P (MAP) Pulse Ox O2 Delivery O2 Flow Rate FiO2 02/13/25 12:50 98.0 89 17 151/82 (105) 94 98.0 02/13/25 12:07 Nasal Cannula* 1 24 Intake/Output Intake and Output 02/13/25 07:00 Intake Total 600 ml Output Total 10 ml Balance 590 ml Intake Oral 0 ml IV Total 600 ml Output Drainage Total 10 ml # Voids 5 # Bowel Movements 2 General Appearance: Alert, Oriented X3, Cooperative, No acute distress HEENT: Atraumatic, PERRLA, EOMI, Mucous membr. moist/pink Neck: Supple Cardiovascular: Regular rate, Normal S1, Normal S2, No murmurs, Gallops, Rubs Abdomen: Normal bowel sounds, Soft, No tenderness Neuro: Cranial nerves 3-12 NL Psych/Mental Status: Mental status NL Medications Current Medications Medications Dose Ordered Sig/Randy Route Start Time Stop Time Status Last Admin Dose Admin Levofloxacin/ Dextrose 100 ml @ 100 mls/hr DAILY IV 02/12/25 10:00 02/13/25 10:32 100 MLS/HR Vancomycin HCl 0 ml @ 0 mls/hr UD IV 02/11/25 21:00 Sodium Chloride 1,000 ml @ 60 mls/hr [id number] IV 02/11/25 21:00 02/13/25 06:45 60 MLS/HR Diagnostic Test (Pha) 1 strip IQ4HR 02/12/25 00:00 02/13/25 11:52 1 STRIP Dextrose 50 ml UD PRN IV 02/11/25 22:00 Insulin Human Regular IQ4HR SC 02/11/25 22:15 02/13/25 12:00 2 UNITS Ipratropium [place] 0.5 mg Q6HWA NEB 02/12/25 06:00 02/13/25 12:06 0.5 MG Levalbuterol HCl 0.625 mg Q6HR NEB 02/12/25 00:00 02/13/25 12:06 0.625 MG Acetylcysteine 200 mg Q6HR NEB 02/12/25 00:00 02/13/25 12:06 200 MG Aspirin 81 mg DAILY PO 02/12/25 10:00 02/13/25 10:31 81 MG Atorvastatin Calcium 20 mg HS PO 02/12/25 22:00 02/12/25 21:39 20 MG Acetaminophen 325 mg Q4HP PRN PO 02/12/25 00:15 02/13/25 08:11 325 MG Morphine Sulfate 2 mg Q4HPRN PRN IV 02/12/25 00:15 Vancomycin HCl 250 ml @ 250 mls/hr Q12H IV 02/12/25 13:00 02/13/25 12:58 250 MLS/HR Laboratory Results Laboratory Tests 02/12/25 09:08 02/13/25 12:03 Urinalysis Test 02/11/25 23:01 Urine Color Light-yellow (Yellow) Urine Clarity Clear (Clear) Urine pH 5.5 (5.0-9.0) Urine Specific [place] 1.027 (1.001-1.035) Urine Protein Trace (Negative) H Urine Ketones Negative (Negative) Urine Blood Negative /uL (Negative) Urine Nitrite Negative (Negative) Urine Bilirubin Negative (Negative) Urine Urobilinogen Normal mg/dL (Negative) Urine Leukocyte Esterase Negative /uL (Negative) Urine RBC 2 /hpf (0 - 4) Urine Microscopic WBC 3 /HPF (0-5) Urine Squamous Epithelial Cells Few /hpf (<5) Urine Bacteria None seen /hpf (None Seen) Urine Glucose 4+ mg/dL (Normal) H Microbiology Microbiology Date/Time Source Procedure Growth Status 02/11/25 23:01 Voided Urine Urine Culture - Preliminary Resulted 02/11/25 17:20 Blood Blood Culture - Preliminary NO GROWTH AFTER 24 HOURS OF INCUBATION. Resulted Labs and/or images reviewed: Labs reviewed by me Assessment/Plan Assessment/Plan Sepsis secondary to pneumonia Acute respiratory failure Community-acquired pneumonia positive/Gram-negative Recent cholecystectomy Rule out right pleural effusion Simple hyperglycemia PAD status post stent placement History of constipation status post colectomy PTSD Hypertension Dyslipidemia Diabetes History of abnormal uterine bleeding status post partial hysterectomy PLAN Continuing current management Continuing with nasal cannula oxygen therapy with nasal cannula 3 L to keep saturation oxygen above 92% Continuing IV antibiotic with Levaquin and vancomycin On IV fluids. Continuing bronchodilators ultrasound showed minimal bilateral pleural effusion Completed abdomen and pelvis CT which showed no acute findings On insulin sliding scale Continuing aspirin atorvastatin due to stent placement Appreciate surgeon input Waiting for HIDA scan Awaiting results from cultures This medical document was created using an electronic medical record system with [employer] computerized dictation system. Although this document has been carefully reviewed, there may still be some phonetic and typographical errors. These areas are purely typographical due to imperfections of the software programs, and do not reflect any compromise in the patient's medical care. Plan discussed with: Patient Date of Service: Feb 13, 2025 Billing Provider: MICHELE NUÑEZ MD Common Visit Codes: [id number] INP/OBS CARE(HIGH) MICHELE NUÑEZ MD Feb 13, 2025 14:47
--- NOTE | 2025-02-13 16:20 | DVHSR ---
APPROVED REPORT EXAM: Two-dimensional and M-mode echocardiogram with Doppler and color Doppler. Blood Pressure: 144/80 mmHg INDICATION SOB RISK FACTORS Height: 5'4, Weight: 142 DIMENSIONS LVDd4.4 (3.8-5.7cm)LA (2D)2.6 (1.9-4.0cm)Aortic Root3.1 (2.0-3.7cm) LVDs3.2 (2.5-4.0cm)LA (MM) (1.9-4.0cm)Aortic Cusp Exc1.5 (1.5-2.0cm) EF (%) 55.0 (55-70%)Rt. Atrium3.4 (1.9-4.0cm)Asc. Aorta2.8 cm IVSd0.8 (0.7-1.1cm)RV (D)3.1 (1.8-2.4cm) PWd0.8 (0.7-1.1cm) Mitral Valve MitralMitral Stenosis E wave0.97m/sMV Mean GR.mmHg A wave0.97m/sMV Peak GR.152mmHg E/A ratio1.02D MVAcm2 DECEL [id number] 1/2 [place] Aortic Valve Aortic ValveAortic Stenosis V11.25m/[place] Mean GR.4mmHg V21.33m/[place] Peak GR.7mmHg LVOT Diameter1.8 (1.8-2.4cm)Doppler AVA2.39cm2 Pulmonic Valve V21.00m/s Tricuspid Valve TR Velocity3.16m/s [id number] Other Information Technically limited study due to pt has implants, just had surgery unable to lay down or turn no sub s were obtainable Conclusion Technically good study. Sinus rhythm. Mild left atrial enlargement. Mild aortic root enlargement. Valves are structurally normal. EF of 55-60% with normal RV function. Mild TR. Mild MR. No pericardial effusion masses or vegetations.
[2025-02-14] VITALS (17 sets, daily range): BP systolic 143–159; BP diastolic 66–91; PULSE 88–102; RESP 17–20; TEMP 97.8–98.3; O2SAT 90–100
--- NOTE | 2025-02-14 07:37 | DVHPN2 ---
Progress Note Date Seen: Feb 14, 2025 Medical Necessity Reason Pt with a Central, PICC or Fol: No Objective vital signs Vital Sign Date Time Temp Pulse Resp B/P (MAP) Pulse Ox O2 Delivery O2 Flow Rate FiO2 02/14/25 07:20 88 20 95 02/14/25 07:20 Nasal Cannula 1.0 02/14/25 07:20 24 02/14/25 05:00 97.9 143/91 (108) 97.9 Total Intake and Output 02/13/25 02/13/25 02/14/25 15:00 23:00 07:00 Intake Total 240 ml 800 ml 1200 ml Output Total 300 ml 810 ml Balance 240 ml 500 ml 390 ml medications Current Medications Medications Dose Ordered Sig/Randy Route Start Time Stop Time Status Last Admin Dose Admin Levofloxacin/ Dextrose 100 ml @ 100 mls/hr DAILY IV 02/12/25 10:00 02/13/25 10:32 100 MLS/HR Vancomycin HCl 0 ml @ 0 mls/hr UD IV 02/11/25 21:00 Sodium Chloride 1,000 ml @ 60 mls/hr [id number] IV 02/11/25 21:00 02/13/25 23:00 60 MLS/HR Diagnostic Test (Pha) 1 strip IQ4HR 02/12/25 00:00 02/14/25 04:29 1 STRIP Dextrose 50 ml UD PRN IV 02/11/25 22:00 Insulin Human Regular IQ4HR SC 02/11/25 22:15 02/14/25 04:34 6 UNITS Ipratropium [place] 0.5 mg Q6HWA NEB 02/12/25 06:00 02/14/25 07:20 0.5 MG Levalbuterol HCl 0.625 mg Q6HR NEB 02/12/25 00:00 02/14/25 07:19 0.625 MG Acetylcysteine 200 mg Q6HR NEB 02/12/25 00:00 02/14/25 07:18 200 MG Aspirin 81 mg DAILY PO 02/12/25 10:00 02/13/25 10:31 81 MG Atorvastatin Calcium 20 mg HS PO 02/12/25 22:00 02/13/25 21:13 20 MG Acetaminophen 325 mg Q4HP PRN PO 02/12/25 00:15 02/13/25 21:15 325 MG Morphine Sulfate 2 mg Q4HPRN PRN IV 02/12/25 00:15 Vancomycin HCl 250 ml @ 250 mls/hr Q12H IV 02/12/25 13:00 02/14/25 00:44 250 MLS/HR laboratory and microbiology Laboratory Tests 02/13/25 12:03 02/12/25 09:08 Test 02/12/25 09:08 Range/Units Serum Glucose 191 H 74-106 mg/dL Problem List/Assessment/Plan Problem List/Assessment/Plan 02/14/25 FEELS MUCH BETTER, ABDOMEN NON DISTENDED, NON TENDER, DRAINAGE LESS, HIDA SCAN PENDING Plan discussed with: Patient CAMILA KO MD Feb 14, 2025 07:37
[2025-02-14 08:07] LABS: Hematocrit 28.3 % (36.0-46.0); Hemoglobin 9.7 g/dL (12.2-16.2); Mean Corpuscular Hemoglobin 28.7 pg (28.0-32.0); Mean Corpuscular Volume 84.3 fL (80.0-100.0); Nucleated Red Blood Cells % 0.1 %
--- NOTE | 2025-02-14 23:18 | DVHPN2 ---
Subjective The patient is seen and examined at bedside. Complain of abdominal pain. The patient went in a leave the hospital. The patient put her pajama in and about to leave Reviewed: Care Plan, H&P, Labs, Medications, Previous Orders, Radiology Changes from previous H/P or p: No Changes Objective Vitals Vital Signs Date Time Temp Pulse Resp B/P (MAP) Pulse Ox O2 Delivery O2 Flow Rate FiO2 02/14/25 22:23 89 20 151/71 96 4.0 36 02/14/25 21:00 98.3 98.3 02/14/25 11:34 Nasal Cannula* Intake/Output Intake and Output 02/14/25 07:00 Intake Total 2240 ml Output Total 1110 ml Balance 1130 ml Intake Oral 1990 ml IV Total 250 ml Output Urine Total 1100 ml Drainage Total 10 ml # Bowel Movements 4 General Appearance: Alert, Oriented X3, Cooperative, No acute distress HEENT: Atraumatic, PERRLA, EOMI, Mucous membr. moist/pink Neck: Supple Cardiovascular: Regular rate, Normal S1, Normal S2, No murmurs, Gallops, Rubs Abdomen: Normal bowel sounds, Soft, No tenderness Neuro: Cranial nerves 3-12 NL Psych/Mental Status: Mental status NL Medications Current Medications Medications Dose Ordered Sig/Randy Route Start Time Stop Time Status Last Admin Dose Admin Levofloxacin/ Dextrose 100 ml @ 100 mls/hr DAILY IV 02/12/25 10:00 02/14/25 09:00 100 MLS/HR Vancomycin HCl 0 ml @ 0 mls/hr UD IV 02/11/25 21:00 Sodium Chloride 1,000 ml @ 60 mls/hr [id number] IV 02/11/25 21:00 02/13/25 23:00 60 MLS/HR Diagnostic Test (Pha) 1 strip IQ4HR 02/12/25 00:00 02/14/25 20:12 1 STRIP Dextrose 50 ml UD PRN IV 02/11/25 22:00 Insulin Human Regular IQ4HR SC 02/11/25 22:15 02/14/25 16:19 6 UNITS Ipratropium [place] 0.5 mg Q6HWA NEB 02/12/25 06:00 02/14/25 20:38 0.5 MG Levalbuterol HCl 0.625 mg Q6HR NEB 02/12/25 00:00 02/14/25 20:38 0.625 MG Acetylcysteine 200 mg Q6HR NEB 02/12/25 00:00 02/14/25 20:38 200 MG Aspirin 81 mg DAILY PO 02/12/25 10:00 02/14/25 09:00 81 MG Atorvastatin Calcium 20 mg HS PO 02/12/25 22:00 02/14/25 21:10 20 MG Acetaminophen 325 mg Q4HP PRN PO 02/12/25 00:15 02/14/25 21:10 325 MG Morphine Sulfate 2 mg Q4HPRN PRN IV 02/12/25 00:15 Vancomycin HCl 250 ml @ 250 mls/hr Q12H IV 02/12/25 13:00 02/14/25 13:14 250 MLS/HR Laboratory Results Laboratory Tests 02/12/25 09:08 02/14/25 07:20 Urinalysis Test 02/11/25 23:01 Urine Color Light-yellow (Yellow) Urine Clarity Clear (Clear) Urine pH 5.5 (5.0-9.0) Urine Specific [place] 1.027 (1.001-1.035) Urine Protein Trace (Negative) H Urine Ketones Negative (Negative) Urine Blood Negative /uL (Negative) Urine Nitrite Negative (Negative) Urine Bilirubin Negative (Negative) Urine Urobilinogen Normal mg/dL (Negative) Urine Leukocyte Esterase Negative /uL (Negative) Urine RBC 2 /hpf (0 - 4) Urine Microscopic WBC 3 /HPF (0-5) Urine Squamous Epithelial Cells Few /hpf (<5) Urine Bacteria None seen /hpf (None Seen) Urine Glucose 4+ mg/dL (Normal) H Microbiology Microbiology Date/Time Source Procedure Growth Status 02/11/25 23:01 Voided Urine Urine Culture - Preliminary Resulted 02/11/25 17:20 Blood Blood Culture - Preliminary NO GROWTH AFTER 72 HOURS OF INCUBATION. Resulted Labs and/or images reviewed: Labs reviewed by me Assessment/Plan Assessment/Plan Sepsis secondary to pneumonia Acute respiratory failure Community-acquired pneumonia positive/Gram-negative Recent cholecystectomy Rule out right pleural effusion Simple hyperglycemia PAD status post stent placement History of constipation status post colectomy PTSD Hypertension Dyslipidemia Diabetes History of abnormal uterine bleeding status post partial hysterectomy PLAN Continuing current management Continuing with nasal cannula oxygen therapy with nasal cannula 3 L to keep saturation oxygen above 92% Continuing IV antibiotic with Levaquin and vancomycin On IV fluids. Continuing bronchodilators ultrasound showed minimal bilateral pleural effusion Completed abdomen and pelvis CT which showed no acute findings On insulin sliding scale Continuing aspirin atorvastatin due to stent placement Appreciate surgeon input Waiting for HIDA scan Awaiting results from cultures I explained to the patient that she is not stable to be discharged yet. Still waiting for HIDA scan. If she wanted to leave the hospital she needs to sign against my medical advice. This medical document was created using an electronic medical record system with [employer] computerized dictation system. Although this document has been carefully reviewed, there may still be some phonetic and typographical errors. These areas are purely typographical due to imperfections of the software programs, and do not reflect any compromise in the patient's medical care. This medical document was created using an electronic medical record system with [employer] dictation system. Although this document has been carefully reviewed, there may still be some phonetic and typographical errors. These areas are purely typographical due to imperfections of the software programs, and do not reflect any compromise in the patient's medical care. Plan discussed with: Patient, Other (RN) Date of Service: Feb 14, 2025 Billing Provider: MICHELE NUÑEZ MD Common Visit Codes: [id number] INP/OBS CARE(HIGH) MICHELE NUÑEZ MD Feb 14, 2025 23:18
[2025-02-15] VITALS (16 sets, daily range): BP systolic 127–182; BP diastolic 66–91; PULSE 78–120; RESP 14–19; TEMP 97.6–99; O2SAT 90–100
[2025-02-15 07:36] LABS: Hematocrit 29.1 % (36.0-46.0); Hemoglobin 9.8 g/dL (12.2-16.2); Mean Corpuscular Hemoglobin 28.9 pg (28.0-32.0); Mean Corpuscular Volume 85.6 fL (80.0-100.0); Nucleated Red Blood Cells % 0.1 %
[2025-02-15 07:39] LABS: Chloride 99 mmol/L (98-107); Sodium 142 mmol/L (136-145)
[2025-02-15 07:40] LABS: Anion Gap 12 (5-15); Calcium 9.1 mg/dL (8.7-10.4); Carbon Dioxide 31 mmol/L (20-31); Potassium 3.2 mmol/L (3.5-5.1)
[2025-02-15 07:45] LABS: BUN/Creatinine Ratio 9.4 (10.0-20.0)
[2025-02-15 07:46] LABS: Blood Urea Nitrogen 6 mg/dL (9-23); Glucose 164 mg/dL (74-106)
--- NOTE | 2025-02-15 11:59 | DVHPN2 ---
Subjective The patient is seen and examined at bedside. Complain of abdominal pain. The patient went in a leave the hospital. The patient put her pajama in and about to leave Reviewed: Care Plan, H&P, Labs, Medications, Previous Orders, Radiology Changes from previous H/P or p: No Changes Objective Vitals Vital Signs Date Time Temp Pulse Resp B/P (MAP) Pulse Ox O2 Delivery O2 Flow Rate FiO2 02/15/25 11:32 98.0 02/15/25 09:30 90 16 151/72 (98) 90 02/15/25 08:00 Nasal Cannula* 1 24 Intake/Output Intake and Output 02/15/25 07:00 Intake Total 2398 ml Output Total 5 ml Balance 2393 ml Intake Oral 1848 ml IV Total 550 ml Gastric Drainage Total 5 ml # Voids 12 # Bowel Movements 5 General Appearance: Alert, Oriented X3, Cooperative, No acute distress HEENT: Atraumatic, PERRLA, EOMI, Mucous membr. moist/pink Neck: Supple Cardiovascular: Regular rate, Normal S1, Normal S2, No murmurs, Gallops, Rubs Abdomen: Normal bowel sounds, Soft, No tenderness Neuro: Cranial nerves 3-12 NL Psych/Mental Status: Mental status NL Medications Current Medications Medications Dose Ordered Sig/Randy Route Start Time Stop Time Status Last Admin Dose Admin Levofloxacin/ Dextrose 100 ml @ 100 mls/hr DAILY IV 02/12/25 10:00 02/15/25 09:40 100 MLS/HR Vancomycin HCl 0 ml @ 0 mls/hr UD IV 02/11/25 21:00 Sodium Chloride 1,000 ml @ 60 mls/hr [id number] IV 02/11/25 21:00 02/15/25 08:20 60 MLS/HR Diagnostic Test (Pha) 1 strip IQ4HR 02/12/25 00:00 02/15/25 08:17 1 STRIP Dextrose 50 ml UD PRN IV 02/11/25 22:00 Insulin Human Regular IQ4HR SC 02/11/25 22:15 02/15/25 08:00 2 UNITS Ipratropium [place] 0.5 mg Q6HWA NEB 02/12/25 06:00 02/15/25 06:40 0.5 MG Levalbuterol HCl 0.625 mg Q6HR NEB 02/12/25 00:00 02/15/25 06:40 0.625 MG Acetylcysteine 200 mg Q6HR NEB 02/12/25 00:00 02/15/25 06:40 200 MG Aspirin 81 mg DAILY PO 02/12/25 10:00 02/15/25 09:40 81 MG Atorvastatin Calcium 20 mg HS PO 02/12/25 22:00 02/14/25 21:10 20 MG Acetaminophen 325 mg Q4HP PRN PO 02/12/25 00:15 02/15/25 11:32 325 MG Morphine Sulfate 2 mg Q4HPRN PRN IV 02/12/25 00:15 Vancomycin HCl 250 ml @ 250 mls/hr Q12H IV 02/12/25 13:00 02/15/25 00:17 250 MLS/HR Laboratory Results Laboratory Tests 02/15/25 06:19 Chemistry Test 02/15/25 06:19 Calcium Level 9.1 mg/dL (8.7-10.4) Urinalysis Test 02/11/25 23:01 Urine Color Light-yellow (Yellow) Urine Clarity Clear (Clear) Urine pH 5.5 (5.0-9.0) Urine Specific [place] 1.027 (1.001-1.035) Urine Protein Trace (Negative) H Urine Ketones Negative (Negative) Urine Blood Negative /uL (Negative) Urine Nitrite Negative (Negative) Urine Bilirubin Negative (Negative) Urine Urobilinogen Normal mg/dL (Negative) Urine Leukocyte Esterase Negative /uL (Negative) Urine RBC 2 /hpf (0 - 4) Urine Microscopic WBC 3 /HPF (0-5) Urine Squamous Epithelial Cells Few /hpf (<5) Urine Bacteria None seen /hpf (None Seen) Urine Glucose 4+ mg/dL (Normal) H Microbiology Microbiology Date/Time Source Procedure Growth Status 02/11/25 23:01 Voided Urine Urine Culture - Preliminary Resulted 02/11/25 17:20 Blood Blood Culture - Preliminary NO GROWTH AFTER 72 HOURS OF INCUBATION. Resulted Labs and/or images reviewed: Labs reviewed by me Assessment/Plan Assessment/Plan Sepsis secondary to pneumonia Acute respiratory failure Community-acquired pneumonia positive/Gram-negative Recent cholecystectomy Rule out right pleural effusion Simple hyperglycemia PAD status post stent placement History of constipation status post colectomy PTSD Hypertension Dyslipidemia Diabetes History of abnormal uterine bleeding status post partial hysterectomy PLAN Continuing current management Continuing with nasal cannula oxygen therapy with nasal cannula 3 L to keep saturation oxygen above 92% Continuing IV antibiotic with Levaquin and vancomycin On IV fluids. Continuing bronchodilators ultrasound showed minimal bilateral pleural effusion Completed abdomen and pelvis CT which showed no acute findings On insulin sliding scale Continuing aspirin atorvastatin due to stent placement Appreciate surgeon input Waiting for HIDA scan to rule out bile leak post cholecystectomy Awaiting results from cultures I explained to the patient that she is not stable to be discharged yet. Still waiting for HIDA scan. If she wanted to leave the hospital she needs to sign against my medical advice. This medical document was created using an electronic medical record system with [employer] dictation system. Although this document has been carefully reviewed, there may still be some phonetic and typographical errors. These areas are purely typographical due to imperfections of the software programs, and do not reflect any compromise in the patient's medical care. This medical document was created using an electronic medical record system with [employer] dictation system. Although this document has been carefully reviewed, there may still be some phonetic and typographical errors. These areas are purely typographical due to imperfections of the software programs, and do not reflect any compromise in the patient's medical care. Plan discussed with: Patient My Orders Orders - MICHELE NUÑEZ MD Procedure Category Date Status Time Basic Metabolic Panel LAB 02/16/25 Verified 05:00 Basic Metabolic Panel LAB 02/17/25 Verified 05:00 Basic Metabolic Panel LAB 02/18/25 Verified 05:00 Basic Metabolic Panel LAB 02/19/25 Verified 05:00 Mrsa Screen ERNST 02/14/25 In Process 23:51 Date of Service: Feb 15, 2025 Billing Provider: MICHELE NUÑEZ MD Common Visit Codes: [id number] INP/OBS CARE(HIGH) MICHELE NUÑEZ MD Feb 15, 2025 11:59
--- NOTE | 2025-02-15 16:08 | DVH ---
CLINICAL INFORMATION: Postop. Bile leak. TECHNIQUE: 4.4 mCi of Choletec were administered intravenously. Images of the upper abdomen were ob tained at multiple intervals up to a total time of 60 minutes. COMPARISON: NM CARDIOLITE MULTIPLE on DOS: 09/18/22 FINDINGS: There is prompt excretion of activity from the biliary ductal system into the small bowel . Most of the activity is seen in the common bile duct and small bowel on the initial 60 minutes of i maging, although there is some activity adjacent to the right hepatic lobe at 46 minutes and 48 [place], which is not seen prior to or after these images, possibly overlying activity from contamination and/or the patient's IV. Delayed images show activity within the lower abdomen and pelvis, presumabl y within bowel. IMPRESSION: There is excretion of activity from the biliary ductal system into the small bowel as described above . Small amount of activity projects over the right hepatic lobe on images obtained at 46 and 48 minut es, possibly due to overlying contamination and/or the patient's IV as there is no activity in this l ocation on prior images or later images. This activity does not have the appearance of a bile leak. W hat is More delayed images show activity within the lower abdomen and pelvis, presumably within loops of bowel.
[2025-02-16] VITALS (15 sets, daily range): BP systolic 134–153; BP diastolic 51–84; PULSE 85–111; RESP 14–19; TEMP 96.8–98.7; O2SAT 90–100
[2025-02-16 06:54] LABS: Anion Gap 12 (5-15); Calcium 9.0 mg/dL (8.7-10.4); Carbon Dioxide 31 mmol/L (20-31); Chloride 100 mmol/L (98-107); Sodium 143 mmol/L (136-145)
[2025-02-16 06:55] LABS: Potassium 2.8 mmol/L (3.5-5.1)
[2025-02-16 07:00] LABS: BUN/Creatinine Ratio 7.2 (10.0-20.0)
[2025-02-16 07:16] LABS: Blood Urea Nitrogen 6 mg/dL (9-23); Glucose 240 mg/dL (74-106)
--- NOTE | 2025-02-16 11:45 | DVHPN2 ---
Subjective The patient is seen and examined at bedside. Complain of abdominal pain. The patient apologize for her behavior yesterday when she want to leave the hospital. She said she has PTSD and take amitriptyline and prozac. She did not have it a couple days so she is very nervous and had outburst. Reviewed: Care Plan, H&P, Labs, Medications, Previous Orders, Radiology Changes from previous H/P or p: No Changes Objective Vitals Vital Signs Date Time Temp Pulse Resp B/P (MAP) Pulse Ox O2 Delivery O2 Flow Rate FiO2 02/16/25 11:16 92 16 100 02/16/25 11:06 Room Air* 0 21 02/16/25 08:00 98.4 153/69 (97) 98.4 Intake/Output Intake and Output 02/16/25 07:00 Intake Total 1802 ml Output Total 5 ml Balance 1797 ml Intake Oral 600 ml IV Total 1202 ml Gastric Drainage Total 5 ml # Voids 5 # Bowel Movements 1 General Appearance: Alert, Oriented X3, Cooperative, No acute distress HEENT: Atraumatic, PERRLA, EOMI, Mucous membr. moist/pink Neck: Supple Cardiovascular: Regular rate, Normal S1, Normal S2, No murmurs, Gallops, Rubs Abdomen: Normal bowel sounds, Soft, No tenderness Neuro: Cranial nerves 3-12 NL Psych/Mental Status: Mental status NL Medications Current Medications Medications Dose Ordered Sig/Randy Route Start Time Stop Time Status Last Admin Dose Admin Levofloxacin/ Dextrose 100 ml @ 100 mls/hr DAILY IV 02/12/25 10:00 02/16/25 09:02 100 MLS/HR Vancomycin HCl 0 ml @ 0 mls/hr UD IV 02/11/25 21:00 Sodium Chloride 1,000 ml @ 60 mls/hr [id number] IV 02/11/25 21:00 02/16/25 01:04 60 MLS/HR Diagnostic Test (Pha) 1 strip IQ4HR 02/12/25 00:00 02/16/25 08:00 1 STRIP Dextrose 50 ml UD PRN IV 02/11/25 22:00 Insulin Human Regular IQ4HR SC 02/11/25 22:15 02/16/25 03:42 2 UNITS Ipratropium [place] 0.5 mg Q6HWA NEB 02/12/25 06:00 02/16/25 11:06 0.5 MG Levalbuterol HCl 0.625 mg Q6HR NEB 02/12/25 00:00 02/16/25 11:06 0.625 MG Acetylcysteine 200 mg Q6HR NEB 02/12/25 00:00 02/16/25 11:06 200 MG Aspirin 81 mg DAILY PO 02/12/25 10:00 02/16/25 09:02 81 MG Atorvastatin Calcium 20 mg HS PO 02/12/25 22:00 02/15/25 21:42 20 MG Acetaminophen 325 mg Q4HP PRN PO 02/12/25 00:15 02/16/25 09:03 325 MG Morphine Sulfate 2 mg Q4HPRN PRN IV 02/12/25 00:15 Vancomycin HCl 250 ml @ 250 mls/hr Q12H IV 02/12/25 13:00 02/16/25 01:04 250 MLS/HR Laboratory Results Laboratory Tests 02/15/25 06:19 02/16/25 05:22 Chemistry Test 02/16/25 05:22 Calcium Level 9.0 mg/dL (8.7-10.4) Urinalysis Test 02/11/25 23:01 Urine Color Light-yellow (Yellow) Urine Clarity Clear (Clear) Urine pH 5.5 (5.0-9.0) Urine Specific [place] 1.027 (1.001-1.035) Urine Protein Trace (Negative) H Urine Ketones Negative (Negative) Urine Blood Negative /uL (Negative) Urine Nitrite Negative (Negative) Urine Bilirubin Negative (Negative) Urine Urobilinogen Normal mg/dL (Negative) Urine Leukocyte Esterase Negative /uL (Negative) Urine RBC 2 /hpf (0 - 4) Urine Microscopic WBC 3 /HPF (0-5) Urine Squamous Epithelial Cells Few /hpf (<5) Urine Bacteria None seen /hpf (None Seen) Urine Glucose 4+ mg/dL (Normal) H Microbiology Microbiology Date/Time Source Procedure Growth Status 02/14/25 23:51 Nose MRSA Screen - Final Methicillin Resistant S.aureus Complete 02/11/25 23:01 Voided Urine Urine Culture - Final Staphylococcus aureus Complete 02/11/25 17:20 Blood Blood Culture - Preliminary NO GROWTH AFTER 72 HOURS OF INCUBATION. Resulted Labs and/or images reviewed: Labs reviewed by me Assessment/Plan Assessment/Plan Sepsis secondary to pneumonia Acute respiratory failure Community-acquired pneumonia positive/Gram-negative Recent cholecystectomy Rule out right pleural effusion Simple hyperglycemia PAD status post stent placement History of constipation status post colectomy PTSD Hypertension Dyslipidemia Diabetes History of abnormal uterine bleeding status post partial hysterectomy PLAN Continuing current management Continuing with nasal cannula oxygen therapy with nasal cannula 3 L to keep saturation oxygen above 92% Continuing IV antibiotic with Levaquin and vancomycin On IV fluids. Continuing bronchodilators ultrasound showed minimal bilateral pleural effusion Completed abdomen and pelvis CT which showed no acute findings On insulin sliding scale Continuing aspirin atorvastatin due to stent placement Appreciate surgeon input HIDA scan showed no bile leak post cholecystectomy Awaiting results from cultures I will restart her amitriptyline and also prozac. I also add ativan 1mg IV q 4 hr PRN for anxiety. This medical document was created using an electronic medical record system with [employer] dictation system. Although this document has been carefully reviewed, there may still be some phonetic and typographical errors. These areas are purely typographical due to imperfections of the software programs, and do not reflect any compromise in the patient's medical care. This medical document was created using an electronic medical record system with [employer] dictation system. Although this document has been carefully reviewed, there may still be some phonetic and typographical errors. These areas are purely typographical due to imperfections of the software programs, and do not reflect any compromise in the patient's medical care. Plan discussed with: Patient Date of Service: Feb 16, 2025 Billing Provider: MICHELE NUÑEZ MD Common Visit Codes: [id number] INP/OBS CARE(HIGH) MICHELE NUÑEZ MD Feb 16, 2025 11:45
--- NOTE | 2025-02-16 11:54 | MEDREC ---
[facility] Intervention Section I [facility] Intervention: Review courses of therapy (MRSA SCREEN POSITIVE CONSIDER ADDING MUPIROCIN 2% OINTMENT 1 APPLICATION IN EACH NOSTRIL BID FOR 5 DAYS ) ALPHONSE VENTURA PHARMACIST Feb 16, 2025 11:54
[2025-02-16] MEDS: LORazepam 2MG/ML-1ML VIAL IV PRN (14:09)
[2025-02-16] MEDS: POTASSIUM EFFERVESENT TAB 25 MEQ PO ONE ×2 (14:10→17:12)
[2025-02-16] MEDS: KETOROLAC TROMETH 30 MG/ML 1ML VIAL IV ONE (14:10)
[2025-02-16] MEDS: AMITRIPTYLINE HCL 25 MG TAB PO SCH (21:54)
[2025-02-16] MEDS: MUPIROCIN 2% OINT 15gm or 22gm FOR MRSA NARES EACHNOSTRI SCH (21:55)
[2025-02-16] MEDS: HYDROcodone-ACET 5/325MG TAB PO PRN (23:22)
[2025-02-17] VITALS (18 sets, daily range): BP systolic 139–154; BP diastolic 73–82; PULSE 84–103; RESP 16–20; TEMP 98.1–99; O2SAT 93–100
[2025-02-17 07:08] LABS: Chloride 101 mmol/L (98-107); Potassium 3.8 mmol/L (3.5-5.1); Sodium 143 mmol/L (136-145)
[2025-02-17 07:09] LABS: Anion Gap 9 (5-15); Calcium 9.2 mg/dL (8.7-10.4)
[2025-02-17 07:17] LABS: BUN/Creatinine Ratio 15.7 (10.0-20.0); Blood Urea Nitrogen 11 mg/dL (9-23); Carbon Dioxide 33 mmol/L (20-31); Glucose 180 mg/dL (74-106)
[2025-02-17] MEDS: PARoxetine 20 MG TAB PO SCH (08:57)
--- NOTE | 2025-02-17 10:45 | DVHPN2 ---
Subjective The patient is seen and examined at bedside. Complain of abdominal pain. The patient apologize for her behavior yesterday when she want to leave the hospital. She said she has PTSD and take amitriptyline and prozac. She did not have it a couple days so she is very nervous and had outburst. Reviewed: Care Plan, H&P, Labs, Medications, Previous Orders, Radiology Changes from previous H/P or p: No Changes Objective Vitals Vital Signs Date Time Temp Pulse Resp B/P (MAP) Pulse Ox O2 Delivery O2 Flow Rate FiO2 02/17/25 09:00 98.2 101 17 154/73 (100) 96 98.2 02/17/25 08:00 Nasal Cannula* 1 24 Intake/Output Intake and Output 02/17/25 07:00 Intake Total 1150 ml Balance 1150 ml Intake Oral 1150 ml # Voids 7 # Bowel Movements 5 General Appearance: Alert, Oriented X3, Cooperative, No acute distress HEENT: Atraumatic, PERRLA, EOMI, Mucous membr. moist/pink Neck: Supple Cardiovascular: Regular rate, Normal S1, Normal S2, No murmurs, Gallops, Rubs Abdomen: Normal bowel sounds, Soft, No tenderness Neuro: Cranial nerves 3-12 NL Psych/Mental Status: Mental status NL Medications Current Medications Medications Dose Ordered Sig/Randy Route Start Time Stop Time Status Last Admin Dose Admin Levofloxacin/ Dextrose 100 ml @ 100 mls/hr DAILY IV 02/12/25 10:00 02/17/25 08:56 100 MLS/HR Vancomycin HCl 0 ml @ 0 mls/hr UD IV 02/11/25 21:00 Sodium Chloride 1,000 ml @ 60 mls/hr [id number] IV 02/11/25 21:00 02/16/25 01:04 60 MLS/HR Diagnostic Test (Pha) 1 strip IQ4HR 02/12/25 00:00 02/17/25 08:21 1 STRIP Dextrose 50 ml UD PRN IV 02/11/25 22:00 Insulin Human Regular IQ4HR SC 02/11/25 22:15 02/17/25 08:00 2 UNITS Ipratropium [place] 0.5 mg Q6HWA NEB 02/12/25 06:00 02/17/25 06:02 0.5 MG Levalbuterol HCl 0.625 mg Q6HR NEB 02/12/25 00:00 02/17/25 06:02 0.625 MG Acetylcysteine 200 mg Q6HR NEB 02/12/25 00:00 02/17/25 06:02 200 MG Aspirin 81 mg DAILY PO 02/12/25 10:00 02/17/25 08:57 81 MG Atorvastatin Calcium 20 mg HS PO 02/12/25 22:00 02/16/25 21:54 20 MG Acetaminophen 325 mg Q4HP PRN PO 02/12/25 00:15 02/16/25 09:03 325 MG Morphine Sulfate 2 mg Q4HPRN PRN IV 02/12/25 00:15 Lorazepam 1 mg Q4HP PRN IV 02/16/25 13:00 02/16/25 14:09 1 MG Mupirocin 1 applic BID EACHNOSTRI 02/16/25 22:00 02/21/25 21:59 02/17/25 09:04 1 APPLIC Acetaminophen/ Hydrocodone Bitart 1 tab Q4HPRN PRN PO 02/16/25 13:00 02/16/25 23:22 1 TAB Amitriptyline HCl 50 mg HS PO 02/16/25 22:00 02/16/25 21:54 50 MG Paroxetine HCl 20 mg DAILY PO 02/17/25 10:00 02/17/25 08:57 20 MG Vancomycin HCl 250 ml @ 250 mls/hr Q12H IV 02/17/25 13:00 Laboratory Results Laboratory Tests 02/15/25 06:19 02/17/25 05:52 Chemistry Test 02/17/25 05:52 Calcium Level 9.2 mg/dL (8.7-10.4) Urinalysis Test 02/11/25 23:01 Urine Color Light-yellow (Yellow) Urine Clarity Clear (Clear) Urine pH 5.5 (5.0-9.0) Urine Specific [place] 1.027 (1.001-1.035) Urine Protein Trace (Negative) H Urine Ketones Negative (Negative) Urine Blood Negative /uL (Negative) Urine Nitrite Negative (Negative) Urine Bilirubin Negative (Negative) Urine Urobilinogen Normal mg/dL (Negative) Urine Leukocyte Esterase Negative /uL (Negative) Urine RBC 2 /hpf (0 - 4) Urine Microscopic WBC 3 /HPF (0-5) Urine Squamous Epithelial Cells Few /hpf (<5) Urine Bacteria None seen /hpf (None Seen) Urine Glucose 4+ mg/dL (Normal) H Microbiology Microbiology Date/Time Source Procedure Growth Status 02/14/25 23:51 Nose MRSA Screen - Final Methicillin Resistant S.aureus Complete 02/11/25 23:01 Voided Urine Urine Culture - Final Staphylococcus aureus Complete 02/11/25 17:20 Blood Blood Culture - Final NO GROWTH AFTER 5 DAYS OF INCUBATION. Complete Labs and/or images reviewed: Labs reviewed by me Assessment/Plan Assessment/Plan Sepsis secondary to pneumonia Acute respiratory failure Community-acquired pneumonia positive/Gram-negative Recent cholecystectomy Rule out right pleural effusion Simple hyperglycemia PAD status post stent placement History of constipation status post colectomy PTSD Hypertension Dyslipidemia Diabetes History of abnormal uterine bleeding status post partial hysterectomy PLAN Continuing current management Continuing with nasal cannula oxygen therapy with nasal cannula 3 L to keep saturation oxygen above 92% Continuing IV antibiotic with Levaquin and vancomycin On IV fluids. Continuing bronchodilators ultrasound showed minimal bilateral pleural effusion Completed abdomen and pelvis CT which showed no acute findings On insulin sliding scale Continuing aspirin atorvastatin due to stent placement Appreciate surgeon input HIDA scan showed no bile leak post cholecystectomy Awaiting results from cultures I will restart her amitriptyline and also prozac. I also add ativan 1mg IV q 4 hr PRN for anxiety. Waiting for surgeon to remove YAS. Discharge planning. This medical document was created using an electronic medical record system with [employer] direct computerized dictation system. Although this document has been carefully reviewed, there may still be some phonetic and typographical errors. These areas are purely typographical due to imperfections of the software programs, and do not reflect any compromise in the patient's medical care. Plan discussed with: Patient My Orders Orders - MICHELE NUÑEZ MD Procedure Category Date Status Time Lorazepam 2mg/Ml Inj PHA 02/16/25 In Process (Ativan Inj) 13:00 Mupirocin 2% Oint PHA 02/16/25 In Process Mrsa Nares (Bactroban 22:00 Hydrocodone-Acet PHA 02/16/25 In Process 5/325mg Tab ([place] 13:00 Amitriptyline Hcl PHA 02/16/25 In Process Tablet (Elavil Tablet) 22:00 Paroxetine Tablet PHA 02/17/25 In Process (Paxil Tablet) 10:00 Consistent DIET 02/16/25 Transmitted Carb([facility])Diabetes Dinner * Wound Consult CONS 02/16/25 Transmitted Date of Service: Feb 17, 2025 Billing Provider: MICHELE NUÑEZ MD Common Visit Codes: [id number] INP/OBS CARE(HIGH) MICHELE NUÑEZ MD Feb 17, 2025 10:45
--- NOTE | 2025-02-17 13:04 | DVHPN2 ---
Subjective Date Seen: Feb 17, 2025 Post op day Post op day: 0 Patient reports: No new complaints Nursing reports: No new complaints General: Normal HNT: Normal Cardiovascular: Normal Respiratory: Normal Gastrointestinal: Normal Genitourinary: Normal Musculoskeletal: Normal Neurological: Normal Objective Vitals Vital Sign Date Time Temp Pulse Resp B/P (MAP) Pulse Ox O2 Delivery O2 Flow Rate FiO2 02/17/25 11:46 90 18 98 02/17/25 11:36 Room Air* 0 21 02/17/25 09:00 98.2 154/73 (100) 98.2 Total Intake and Output 02/16/25 02/16/25 02/17/25 15:00 23:00 07:00 Intake Total 800 ml 350 ml Balance 800 ml 350 ml Medications Current Medications Medications Dose Ordered Sig/Randy Route Start Time Stop Time Status Last Admin Dose Admin Levofloxacin/ Dextrose 100 ml @ 100 mls/hr DAILY IV 02/12/25 10:00 02/17/25 08:56 100 MLS/HR Vancomycin HCl 0 ml @ 0 mls/hr UD IV 02/11/25 21:00 Sodium Chloride 1,000 ml @ 60 mls/hr [id number] IV 02/11/25 21:00 02/17/25 10:20 60 MLS/HR Diagnostic Test (Pha) 1 strip IQ4HR 02/12/25 00:00 02/17/25 08:21 1 STRIP Dextrose 50 ml UD PRN IV 02/11/25 22:00 Insulin Human Regular IQ4HR SC 02/11/25 22:15 02/17/25 11:53 6 UNITS Ipratropium [place] 0.5 mg Q6HWA NEB 02/12/25 06:00 02/17/25 11:35 0.5 MG Levalbuterol HCl 0.625 mg Q6HR NEB 02/12/25 00:00 02/17/25 11:35 0.625 MG Acetylcysteine 200 mg Q6HR NEB 02/12/25 00:00 02/17/25 11:36 200 MG Aspirin 81 mg DAILY PO 02/12/25 10:00 02/17/25 08:57 81 MG Atorvastatin Calcium 20 mg HS PO 02/12/25 22:00 02/16/25 21:54 20 MG Acetaminophen 325 mg Q4HP PRN PO 02/12/25 00:15 02/16/25 09:03 325 MG Morphine Sulfate 2 mg Q4HPRN PRN IV 02/12/25 00:15 Lorazepam 1 mg Q4HP PRN IV 02/16/25 13:00 02/16/25 14:09 1 MG Mupirocin 1 applic BID EACHNOSTRI 02/16/25 22:00 02/21/25 21:59 02/17/25 09:04 1 APPLIC Acetaminophen/ Hydrocodone Bitart 1 tab Q4HPRN PRN PO 02/16/25 13:00 02/17/25 11:55 1 TAB Amitriptyline HCl 50 mg HS PO 02/16/25 22:00 02/16/25 21:54 50 MG Paroxetine HCl 20 mg DAILY PO 02/17/25 10:00 02/17/25 08:57 20 MG Vancomycin HCl 250 ml @ 250 mls/hr Q12H IV 02/17/25 13:00 General: Normal, Well developed Head/Eyes: Normal ENT: Normal Neck: Normal, Supple Lungs: Normal, Normal inspection Cardiovascular: Normal, Regular rate and rhythm Abdominal: Normal, Soft, Normal inspection Musculoskeletal: Normal Extremities: Normal Skin: Normal Neurological: Normal, CNII-XII Intact Labs and Microbiology Laboratory Tests 02/17/25 05:52 02/15/25 06:19 Test 02/17/25 05:52 Range/Units Serum Glucose 180 H 74-106 mg/dL Ass/Plan Labs and/or images reviewed: Labs reviewed by me Problem List 02/14/25 FEELS MUCH BETTER, ABDOMEN NON DISTENDED, NON TENDER, DRAINAGE LESS, HIDA SCAN PENDING Assessment/Plan Cody drain minimal fluid Cody drain removed abdomen soft , non distended , non tender tolerating diet denies nausea an vomiting Plan: continue current treatment will reevaluate to [place] for possible discharge Plan discussed with patient, Dr. Eric Visit Coding Surgery Date of Service if different f: Feb 17, 2025 Billing Provider: CAMILA ERIC MD Surgery Visit Codes: [id number] INP/OBS CARE(HIGH) JEFFY TURCIOS NP Feb 17, 2025 13:04
[2025-02-17] MEDS: VANCOMYCIN 1GM/250ML KIT 250 ML IV SCH (14:27)
[2025-02-18] VITALS (8 sets, daily range): BP systolic 118–135; BP diastolic 65–89; PULSE 65–93; RESP 16–18; TEMP 37.3; O2SAT 93–98
[2025-02-18] MEDS ORDERED: PAR20T PO (10:55)
[2025-02-18] MEDS ORDERED: AUG875T PO (10:55)
--- NOTE | 2025-02-18 10:58 | DVHDS2 ---
Discharge Summary Date of Admission Feb 12, 2025 at 00:05 Date of Discharge: Feb 18, 2025 Admitting Diagnosis Sepsis secondary to pneumonia Acute respiratory failure Community-acquired pneumonia positive/Gram-negative Recent cholecystectomy Rule out right pleural effusion Simple hyperglycemia PAD status post stent placement History of constipation status post colectomy PTSD Hypertension Dyslipidemia Diabetes History of abnormal uterine bleeding status post partial hysterectomy Labs/Diagnostic Data: Laboratory Results Test 02/18/25 07:54 02/18/25 05:18 02/17/25 05:52 02/16/25 05:22 POC Glucose 134 mg/dl (70-106) Random Vancomycin Level 8.0 ug/mL (5-10) Vancomycin Level Trough 27.7 ug/mL (5-10) Test 02/15/25 06:19 02/12/25 09:08 02/11/25 23:01 02/11/25 21:30 White Blood Count 10.4 10^3/uL (4.4-10.8) Red Blood Count 3.40 10^6/uL (4.0-5.20) Hemoglobin 9.8 g/dL (12.2-16.2) Hematocrit 29.1 % (36.0-46.0) Mean Corpuscular Volume 85.6 fL (80.0-100.0) Mean Corpuscular Hemoglobin 28.9 pg (28.0-32.0) Mean Corpuscular Hemoglobin Concent 33.8 g/dL (32.0-36.0) Red Cell Distribution Width 14.6 % (11.8-14.3) Platelet Count 681 10^3/uL (140-450) Mean Platelet Volume 7.0 fL (6.9-10.8) Neutrophils (%) (Auto) 76.2 % (37.0-80.0) Lymphocytes (%) (Auto) 13.6 % (10.0-50.0) Monocytes (%) (Auto) 8.1 % (0.0-12.0) Eosinophils (%) (Auto) 1.6 % (0.0-7.0) Basophils (%) (Auto) 0.5 % (0.0-2.0) Neutrophils # (Auto) 7.9 10 ^3/uL (1.6-8.6) Lymphocytes # (Auto) 1.4 10 ^3/uL (0.4-5.4) Monocytes # (Auto) 0.8 10 ^3/uL (0-1.3) Eosinophils # (Auto) 0.2 10 ^3/uL (0-0.8) Basophils # (Auto) 0 10 ^3/uL (0-0.2) Nucleated Red Blood Cells 0.1 % Total Bilirubin 0.7 mg/dL (0.2-1.0) Aspartate Amino Transferase (AST) 33 U/L (13-40) Alanine Aminotransferase (ALT) 25 U/L (7-40) Alkaline Phosphatase 388 U/L (46-116) Total Protein 6.7 g/dL (5.7-8.2) Albumin 3.7 g/dL (3.2-4.8) Hepatitis B Surface Antigen Negative (Negative) Hepatitis C Antibody Negative (Negative) Urine Color Light-yellow (Yellow) Urine Clarity Clear (Clear) Urine pH 5.5 (5.0-9.0) Urine Specific [place] 1.027 (1.001-1.035) Urine Protein Trace (Negative) Urine Ketones Negative (Negative) Urine Blood Negative /uL (Negative) Urine Nitrite Negative (Negative) Urine Bilirubin Negative (Negative) Urine Urobilinogen Normal mg/dL (Negative) Urine Leukocyte Esterase Negative /uL (Negative) Urine RBC 2 /hpf (0 - 4) Urine Microscopic WBC 3 /HPF (0-5) Urine Squamous Epithelial Cells Few /hpf (<5) Urine Bacteria None seen /hpf (None Seen) Urine Glucose 4+ mg/dL (Normal) Prothrombin Time 10.3 sec (9.3-11.8) Prothrombin Time INR 0.97 (0.9-1.15) Activated Partial Thromboplast Time 29.4 SEC (24.5-34.5) Lactic Acid Level 1.3 mmol/L (0.4-2.0) Phosphorus Level 3.3 mg/dL (2.4-5.1) Magnesium Level 1.5 mg/dL (1.6-2.6) Triglycerides Level 262 mg/dL (< 150) Cholesterol Level 80 mg/dL (< 200) LDL Cholesterol 35 mg/dL (< 100) HDL Cholesterol 12 mg/dL (40-59) Vitamin B12 Level 2740 pg/mL (211-911) Vitamin D 25-Hydroxy 37.5 ng/mL (30.0-100) Thyroid Stimulating Hormone (TSH) 3.26 uIU/mL (0.55-4.78) Test 02/11/25 21:00 02/11/25 18:05 02/11/25 17:20 02/11/25 00:00 Urine Opiates Screen Neg (NEGATIVE) Urine Fentanyl Screen Neg (NEGATIVE) Urine Barbiturates Screen Neg (NEGATIVE) Urine Phencyclidine Screen Neg (NEGATIVE) Urine Amphetamines Screen Neg (NEGATIVE) Urine Benzodiazepines Screen Neg (NEGATIVE) Urine Cocaine Screen Neg (NEGATIVE) Urine Cannabinoids Screen Neg (NEGATIVE) Influenza Type A Antigen Negative (Negative) Influenza Type B Antigen Negative (Negative) Troponin I High Sensitivity 7 ng/L (</=34) B-Type Natriuretic Peptide 83.34 pg/mL (0-100) Beta-Hydroxybutyric Acid 0.141 mmol/L (< 0.4) SARS-CoV-2 Antigen (Rapid) Negative (NEGATIVE) Other Laboratory Tests 02/15/25 06:19 Brief Hx & Hospital Course: This is a 70 years old female with past medical history of cholecystectomy recently came to emergency department because of dry cough, stabbing abdominal pain at the right upper quadrant and dyspnea on exertion. The patient's symptoms persistent since recent surgery from cholecystectomy. The patient also complained of chill, nausea, vomiting. The patient was admitted. Surgery was consulted to see if the patient had bowel leak after surgery. HIDA scan is negative for bowel leak. The patient was empirically put on IV antibiotic with vancomycin. The patient also was found to have bilateral pneumonia per x-ray. The patient doing well after given IV antibiotic. Her YAS drain was removed. Her wound is healing well. I am going to discharge her today. Advised her to follow up with primary care physician 1-2 weeks. Activity as tolerated. Diet per home diet. Physical exam: HEENT: Normocephalic atraumatic pupils equal react to light and accommodation. Extraocular muscles intact, conjunctiva pink, oropharynx moist, no thrush, no exudate. Lymphatic: No lymphadenopathy Cardiovascular exam: S1, S2 was heard. No murmurs, rubs, gallops Lung: Clear on auscultation bilaterally, no wheeze, rale, rhonchi. GI: Abdominal soft, nondistended, nontenderness, positive bowel sounds. Extremity: No crepitus, cyanosis, edema. Pedal pulses present bilateral. Full range of motion. Skin: Normal turgor, no rash. Psych: Alert, oriented x3. Neurology: No focal deficits, cranial nerve II to XII grossly intact. This medical document was created using an electronic medical record system with [employer] direct computerized dictation system. Although this document has been carefully reviewed, there may still be some phonetic and typographical errors. These areas are purely typographical due to imperfections of the software programs, and do not reflect any compromise in the patient's medical care. Condition at Discharge: Stable Final Diagnosis/Problems List Sepsis secondary to pneumonia Acute respiratory failure Community-acquired pneumonia positive/Gram-negative Recent cholecystectomy Rule out right pleural effusion Simple hyperglycemia PAD status post stent placement History of constipation status post colectomy PTSD Hypertension Dyslipidemia Diabetes History of abnormal uterine bleeding status post partial hysterectomy Discharge Disposition: Home Discharge Instruct/Medications Diet: Regular Activity: No Restrictions, As Tolerated Follow Up/Referral: PCP 1-2 weeks Surgeon per schedule for post op follow up Medications: See med list Scheduled Amitriptyline Hcl (Amitriptyline Hcl), 50 MG PO HS, (Reported) Amoxicillin & Pot Clavulanate (Augmentin Tablet), 875 MG PO BID Fenofibrate (Tricor), 145 MG PO DAILY, (Reported) Glipizide (Glipizide), 10 MG PO BID, (Reported) Glipizide (Glipizide), 10 MG PO DAILY, (Reported) Losartan Potassium (Losartan Potassium), 50 MG PO DAILY, (Reported) Metformin Hydrochloride (Metformin Hcl), 500 MG PO BID, (Reported) Paroxetine (Paxil Tablet), 20 MG PO DAILY Discharge Statement: "Patient was advised to return to the ER or call 911 if any headaches, dizziness, shortness of breath, chest pain, abdominal pain, bleeding, fevers, or worsening of medical condition. Patient was counseled about treatment plan, medications, possible side effects, patientverbalized understanding. All questions were answered to the best of my ability. This discharge took greater then 30 minutes in planning, reviewing documentation, counseling the patient, and discussing with other team members." ASSESSMENT ASSESSMENT Assessment Abdominal pain PNA sepsis Date of Service: Feb 18, 2025 Billing Provider: MICHELE NUÑEZ MD Common Visit Codes: [id number] DISCH DAY >30min MICHELE NUÑEZ MD Feb 18, 2025 10:58
--- NOTE | 2025-02-18 11:30 | DVHPN2 ---
Progress Note Date Seen: Feb 18, 2025 Medical Necessity Reason Pt with a Central, PICC or Fol: No Objective vital signs Vital Sign Date Time Temp Pulse Resp B/P (MAP) Pulse Ox O2 Delivery O2 Flow Rate FiO2 02/18/25 11:12 37.3 65 18 95 02/18/25 10:00 Room Air* 0 21 02/18/25 09:00 135/70 (91) Total Intake and Output 02/17/25 02/17/25 02/18/25 15:00 23:00 07:00 Intake Total 100 ml 1475 ml 600 ml Balance 100 ml 1475 ml 600 ml medications Current Medications Medications Dose Ordered Sig/Randy Route Start Time Stop Time Status Last Admin Dose Admin Levofloxacin/ Dextrose 100 ml @ 100 mls/hr DAILY IV 02/12/25 10:00 02/18/25 08:55 100 MLS/HR Vancomycin HCl 0 ml @ 0 mls/hr UD IV 02/11/25 21:00 Sodium Chloride 1,000 ml @ 60 mls/hr [id number] IV 02/11/25 21:00 02/17/25 10:20 60 MLS/HR Diagnostic Test (Pha) 1 strip IQ4HR 02/12/25 00:00 02/18/25 07:56 1 STRIP Dextrose 50 ml UD PRN IV 02/11/25 22:00 Insulin Human Regular IQ4HR SC 02/11/25 22:15 02/18/25 08:00 2 UNITS Ipratropium [place] 0.5 mg Q6HWA NEB 02/12/25 06:00 02/17/25 19:35 0.5 MG Levalbuterol HCl 0.625 mg Q6HR NEB 02/12/25 00:00 02/18/25 00:48 0.625 MG Acetylcysteine 200 mg Q6HR NEB 02/12/25 00:00 02/18/25 00:48 200 MG Aspirin 81 mg DAILY PO 02/12/25 10:00 02/18/25 08:55 81 MG Atorvastatin Calcium 20 mg HS PO 02/12/25 22:00 02/17/25 21:43 20 MG Acetaminophen 325 mg Q4HP PRN PO 02/12/25 00:15 02/16/25 09:03 325 MG Morphine Sulfate 2 mg Q4HPRN PRN IV 02/12/25 00:15 Lorazepam 1 mg Q4HP PRN IV 02/16/25 13:00 02/16/25 14:09 1 MG Mupirocin 1 applic BID EACHNOSTRI 02/16/25 22:00 02/21/25 21:59 02/18/25 08:55 1 APPLIC Acetaminophen/ Hydrocodone Bitart 1 tab Q4HPRN PRN PO 02/16/25 13:00 02/18/25 09:04 1 TAB Amitriptyline HCl 50 mg HS PO 02/16/25 22:00 02/17/25 21:44 50 MG Paroxetine HCl 20 mg DAILY PO 02/17/25 10:00 02/18/25 08:54 20 MG Vancomycin HCl 250 ml @ 250 mls/hr Q12H IV 02/17/25 13:00 02/18/25 00:54 250 MLS/HR laboratory and microbiology Laboratory Tests 02/15/25 06:19 Test 02/18/25 05:18 Range/Units Serum Glucose Pending Problem List/Assessment/Plan Problem List/Assessment/Plan 02/14/25 FEELS MUCH BETTER, ABDOMEN NON DISTENDED, NON TENDER, DRAINAGE LESS, HIDA SCAN PENDING 02/18/25 doing well ,feels "real well", wounds ok, abdomen non tender, she is cleared for discharge form surgical point of view Plan discussed with: Patient Dietary Evaluation Review Comments: Nutrition Recommendation 1) Aman 1 pk BID 2) Advance to [facility] 60gm + cardiac soft (GI sof) diet as medically feasible 3) Monitor PO intake, lab values, weight trend, and I/O Expected Outcomes/Goals: Intake to meet >75% estimated needs GI symptoms to improve Wound to improve Fu 3-5 days CAMILA KO MD Feb 18, 2025 11:30
[2025-02-18 12:30] LABS: Chloride 102 mmol/L (98-107); Potassium 3.6 mmol/L (3.5-5.1); Sodium 144 mmol/L (136-145)
[2025-02-18 12:31] LABS: Anion Gap 15 (5-15); Calcium 9.2 mg/dL (8.7-10.4); Carbon Dioxide 27 mmol/L (20-31)
[2025-02-18 12:36] LABS: BUN/Creatinine Ratio 13.3 (10.0-20.0); Blood Urea Nitrogen 10 mg/dL (9-23)
[2025-02-18 13:27] LABS: Glucose 156 mg/dL (74-106)
== END 2025-02-18 12:44 | disposition home or self-care (01) | DRG 871 ==
LOC: EDBD 16:49 → ER 16:49 → OVERFLOW 02-12 00:05 → TELE-WESTW 02-12 06:00 → TELE-CENTR 02-15 23:21
PROVIDERS: ADMIT Internal Medicine; ATTEND Internal Medicine
DX: A41.50 Gram-negative sepsis, unspecified (principal); J15.69 Pneumonia due to other Gram-negative bacteria; J96.00 Acute respiratory failure, unspecified whether with hypoxia or hypercapnia; J15.9 Unspecified bacterial pneumonia; J90 Pleural effusion, not elsewhere classified; I10 Essential (primary) hypertension; E78.5 Hyperlipidemia, unspecified; E11.65 Type 2 diabetes mellitus with hyperglycemia; F43.10 Post-traumatic stress disorder, unspecified; Z20.822 Contact with and (suspected) exposure to COVID-19; E11.51 Type 2 diabetes mellitus with diabetic peripheral angiopathy without gangrene; F32.A Depression, unspecified; Z90.49 Acquired absence of other specified parts of digestive tract; Z98.51 Tubal ligation status; Z90.711 Acquired absence of uterus with remaining cervical stump; Z87.891 Personal history of nicotine dependence; Z80.8 Family history of malignant neoplasm of other organs or systems; Z88.0 Allergy status to penicillin; Z88.5 Allergy status to narcotic agent; Z88.8 Allergy status to other drugs, medicaments and biological substances; Z83.3 Family history of diabetes mellitus; Z82.5 Family history of asthma and other chronic lower respiratory diseases; Z80.0 Family history of malignant neoplasm of digestive organs; Z84.19 Family history of other disorders of kidney and ureter; Z81.1 Family history of alcohol abuse and dependence; Z81.8 Family history of other mental and behavioral disorders
CPT/HCPCS: 36415; 71045; 74176; 76604; 78226; 80048; 80053; 80061; 80202; 80307; 81001; 82010; 82306; 82565; 82607; 82962; 83605; 83735; 83880; 84100; 84443; 84484; 85025; 85610; 85730; 86803; 87040; 87081; 87086; 87088; 87186; 87340; 87426; 87804; 93306; 94640; 96374; 96375; G0378; J1815; J1885; J1956

== ENCOUNTER → 2025-04-27 | Outpatient (CLI) | payer OTHER ==
[~2025-04-27] MED LIST changes: +AUG875T PO; -LEVO500T91 PO; -METR-344 PO; +PAR20T PO
[2025-04-27 08:25] LABS: Hematocrit 40.0 % (36.0-46.0); Hemoglobin 12.8 g/dL (12.2-16.2); Mean Corpuscular Hemoglobin 26.1 pg (28.0-32.0); Mean Corpuscular Volume 81.8 fL (80.0-100.0); Nucleated Red Blood Cells % 0.1 %
[2025-04-27 09:01] LABS: Alanine Aminotransferase 22 U/L (7-40); Albumin 4.7 g/dL (3.2-4.8); Alkaline Phosphatase 82 U/L (46-116); Anion Gap 10 (5-15); BUN/Creatinine Ratio 18.2 (10.0-20.0); Blood Urea Nitrogen 18 mg/dL (9-23); Calcium 10.2 mg/dL (8.7-10.4); Carbon Dioxide 28 mmol/L (20-31); Chloride 102 mmol/L (98-107); Potassium 4.7 mmol/L (3.5-5.1); Sodium 140 mmol/L (136-145); Total Protein 8.0 g/dL (5.7-8.2)
[2025-04-27 09:02] LABS: Bilirubin, Total 0.3 mg/dL (0.2-1.0); Cholesterol 291 mg/dL (< 200); Glucose 166 mg/dL (74-106); HDL Cholesterol 41 mg/dL (40-59); Triglycerides 506 mg/dL (< 150)
== END | disposition home or self-care (01) ==
LOC: LAB 07:57
PROVIDERS: ATTEND Licensed Practical Nurse
DX: Z12.11 Encounter for screening for malignant neoplasm of colon (principal); I10 Essential (primary) hypertension; E78.5 Hyperlipidemia, unspecified; E11.9 Type 2 diabetes mellitus without complications
CPT/HCPCS: 36415; 80053; 80061; 82043; 82274; 83036; 85025